=== PATIENT | female | born 1975 | race Hispanic/Latino ===

== ENCOUNTER 2022-01-28 15:04 | Emergency (ER) | payer SELFPAY ==
--- OUTSIDE RECORDS SUMMARY | 2022-01-28 15:15 | XMS REPORT | Continuity of Care Document ---
:1975 Author Organization [facility] t Address [address] [place] [address] Care Team Providers Name Role Phone JEFFERSONANTONELLAOlivia Man Primary Care Physician Unavailable Rolando ZAMUDIO Attending Clinician Unavailable Hammad Willams DO Attending Clinician LEWIS Attending Clinician Unavailable Rolando Zamudio MD Attending Clinician Only, Test Attending Clinician Unavailable Doctor Unassigned, Name Attending Clinician Unavailable Magda ANDRES Attending Clinician Unavailable Lewis SALAMANCA Attending Clinician 2, Lab Attending Clinician Unavailable PARESH Attending Clinician Unavailable Paresh SALAMANCA Attending Clinician Magda Segura Attending Clinician Pc, Echo Room 1 - Attending Clinician Unavailable Piter MAYER Attending Clinician Unavailable KYRIE VASQUEZ Attending Clinician Unavailable Kyrie Vasquez MD Attending Clinician Hellen CORBIN Attending Clinician ANENE Attending Clinician Unavailable AKINMACARIO C Attending Clinician Unavailable Akinsicandice MARCANOP C Attending Clinician Katelynn TREVINO Attending Clinician Unavailable Lab Attending Clinician Unavailable [facility], [facility] Attending Clinician Unavailable Carol Ann Villafuerte Attending Clinician CAROL ANN VILLAFUERTE Attending Clinician Unavailable Belinda NIETOP, N Attending Clinician Rolando ZAMUDIO Admitting Clinician Unavailable Rolando Zamudio MD Admitting Clinician Kyrie Vasquez MD Admitting Clinician KYRIE VASQUEZ Admitting Clinician Unavailable HELLEN Admitting Clinician Unavailable Katelynn TREVINO Admitting Clinician Unavailable Payers Payer Name Policy Type Policy Number Effective Date Expiration Date S nicolette [employer] [place] [id number] 2019 00:00:00 [place] [facility] [id number] 2019 HEALTH 00:00:00 Problems Condition Condition Condition Status Onset Resolution Last Treating Co mments Source Name Details Category Date Date Treatment Clinician Date Preop Preop Disease Active 2020- Overview: Hyun odom examinatio examinatio 03-06 Added it y of n n 00:00: automatic [place] [address] ally from Medical request Branch for surgery [id number] Soft Soft Disease Active 2020- Univers tissue tissue 2-19 ity of mass mass 00:00: [place] [address] Medical Branch Vaginal Vaginal Disease Active 2020-0 Univers yeast yeast 1-27 [place] [facility] Spontaneou Spontaneou Disease Active 2019- U nivers s s 2-18 ity of miscarriag miscarriag [place] Pain Pain Disease Active 2019 Overview: Hyun odom pelvic pelvic 2-18 Possible ity of 00:00: right [place] [address] ovarian Medical cyst on Branch imaging in [place] 04/2019 Urinary Urinary Disease Active 2019- Univers tract tract 8-15 [place] of infection [place] 00 Med[place] sai during during Branch first first trimester trimester of of Anemia of Anemia of Disease Active 2019- Uni vers mother in mother in 8-13 ity of , , [place] antepartum antepartum 00 Az dical Branch Essential Essential Disease Active 2019- Uni vers hypertensi hypertensi 8-12 it y of on on 00:00: [place] [address] Medical Branch High risk High risk Disease Active 2019-0 Uni vers , , 8-12 it y of antepartum antepartum 00:[place] Pregestati Pregestati Disease Active 2019-0 U nivers onal onal 8-12 ity of diabetes diabetes 00:00: [place] mellitus, mellitus, 00 [facility] modified modified Branch White White class B class B Elderly Elderly Disease Active 2019-0 Univers multigravi multigravi 8-12 it y of da in da in 00:00: [place] first first 00 Medical trimester trimester Bran ch BMI BMI Disease Active 2019-0 Univers 26.0-26.9, 26.0-26.9, 8-12 it y of adult adult 00:00: [place] 00 Medical Branch History of History of Disease Active 2019-0 U nivers 8-12 ity of delivery, delivery, 00:00: Jen odom currently currently 00 [facility] Branch Pre-existi Pre-existi Disease Active 2019-0 U nivers ng ng 8-12 ity of essential essential 00:00: Carlmagda odom hypertensi hypertensi 00 Me dical on during on during Bran ch , , antepartum antepartum History of History of Disease Active 2019-0 U nivers depression depression 8-12 it y of 00:00: [place] 00 Medical Branch History of History of Disease Active 2019-0 U nivers cholecyste cholecyste 8-12 it y of ctomy ctomy 00:00: [place] 00 Medical Branch Multiparit Multiparit Disease Active 2019-0 U nivers y y 8-12 ity of 00:00: [place] 00 Medical Branch Tubal Tubal Disease Active 2019-0 Univers ligation ligation 8-12 ity of evaluation evaluation 00:[place]: [place] [facility] [place] Abnormal Abnormal Disease Active 2018- Unive rs uterine uterine 2-14 ity of bleeding bleeding 00:00: [place] 00 Medical Branch Disease Active 2018- Univers control control 2-14 ity of counseling counseling 00[place]00: [place] [facility] [place] Dysmenorrh Dysmenorrh Disease Active 2018- U nivers ea ea 2-05 ity of 00:00: [place] 00 Medical Branch Elevated Elevated Disease Active 2018-0 Unive rs alkaline alkaline 8-29 ity of phosphatas phosphatas 00:00[place] e level 00 Medical Branch 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 03-03 ity of diabetes diabetes 00:00: [place] mellitus mellitus 00 Medica l without without Branch complicati complicati on, with on, with long-term long-term current current use of use of insulin insulin Anemia, Anemia, Disease Active Univers unspecifie unspecifie 03-03 it y of d type d type 00:00: [place] 00 Medical Branch Overweight Overweight Disease Active Overview : Univers 10-10 ICD10 ity of 00:00: Diagnosis [place] 00 Term Medical [place] Branch Utility Allergies, Adverse Reactions, Alerts Allergy Allergy Status Severity Reaction(s) Onset Inactive Treating Comm ents Source Name Type Date Date Clinician CHLORHEX DRUG Active Hives 2019-0 Univers IDINE INGREDI 03-20 ity of 00:00: [place] 00 Medical Branch Chlorhex Propensi Active Hives 2019-0 Univer s idine ty to 15 ity of adverse 00:00: [place] reaction 00 Medical s Branch LABETALO DRUG Active Other-Cmnt 2020-0 Univ ers L INGREDI 4-28 ity of 00:00: [place] 00 Medical Branch LISINOPR DRUG Active COUGH 2020-0 Univers IL INGREDI 4-28 ity of 00:00: [place] 00 Medical Branch Labetalo Propensi Active Other - See 2020-0 fatigue Univers l ty to comments 4-28 ity of adverse 00:00: [place] reaction 00 Medical s Branch Lisinopr Propensi Active Cough 2020-0 Univer s il ty to 4-28 ity of adverse 00:00: [place] reaction 00 Medical s Branch codeine DA Active MS 2020-0 [facility] 4[facility]10 [place] 00:00: d 00 [facility] codeine DA Active MS VOMITING 2019-0 [facility] 4-10 [place] 00:00: d 00 [facility] HYDROCOD DRUG Active N/V Univers ONE-ACET 2-26 ity of AMINOPHE 00:00: [place] N 00 Medical Branch Hydrocod Propensi Active Nausea Univer s one-Acet ty to and/or 2-26 ity of aminophe adverse Vomiting 00:00: [place] n reaction 00 Medical s Branch No Known DA Active U [facility] 4 [place] Intolera 00:00: d nces 00 [facility] No Known DA Active U [facility] Contrast 4-06 [place] Allergie 00:[facility]: d [facility] No Known DA Active U [facility] 4- [place] Allergie 00:[facility]: [facility] No Known DA Active U 2002- [facility] Food 4- [place] Allergie 00:00: d s [facility] No Known DA Active U 2002- [facility] Other 4- [place] Allergie 00:[facility]: [facility] Social History Social Habit Start Date Stop Date Quantity Comments Source ASSERTION 2019-01-21 University 00:00:00 [facility] Exposure to Not sure [facility] SARS-CoV-2 [facility] (event) Branch Alcohol intake 2020-03-29 2020-03-29 Current [facility] 00:00:00 00:00:00 non-drinker of [facility] alcohol [place] (finding) Tobacco use and 2020-03-29 2020-03-29 Never used Universit y of exposure 00:00:00 00:00:00 [facility] Sex Ass[birth year] At [birth year] Universit y of 00:00:00 00:00:00 [facility] Smoking Status Start Date Stop Date Source Never smoker [facility] Medications Ordered Filled Start Stop Current Ordering Indication Dosage Frequency Signature Comments Components Source Medication Medication Date Date Medication? Clinician (SIG) Name Name fluconazole 2019-07 Yes Take 1 Univ ers 150 mg 0-16 tablet by ity of tablet 00:00: mouth now, 00 and 1 Medical tablet in Branch 72 hours. fluconazole 2019-07 Yes Take 1 Univ ers 150 mg 0-16 tablet by ity of tablet 00:00: mouth now, 00 and 1 Medical tablet in Branch 72 hours. sodium 2020-0 Yes PRN, Univers chloride 9-10 Starting ity of 0.9 % 14:24: [place] irrigation 00 03/15/20 at Med ical solution 0924, Branch Until Discontinu ed, Intra-op bupivacaine 2019-0 Yes PRN, Univer s (preserv 9-10 Starting ity of free) 13:32: Kina [place] (SENSORCAIN 03/15/20 at Az dical E MPF) 0.25 0832, Branch % (2.5 Until mg/mL) Discontinu injection ed, Routine, Intra-op morpHINE 2020-0 Yes 2mg 2 mg, Slow Uni vers injection 2 9-10 IV Push, ity of mg 12:32: Q5MIN PRN, [place] 49 5 doses, Medical Starting Branch Kina 03/15/20 at 0732, Until Discontinu ed, Routine, Pain (scale 4-6), PACU lactated 2020-0 2020- No 1000mL at 20 Unive rs ringers IV 9-10 09-10 mL/hr, ity of infusion 12:00: 12:36 1,000 mL, Carl as 1,000 mL 00 :00 IV Medical Infusion, Branch ONCE, 1 dose, Kina 03/15/20 at 0700, Routine, DSU Pre-op ibuprofen 2020-0 Yes [id number] 800mg Take 1 Univers 800 mg 9-10 100 tablet by ity of tablet 00:00: mouth [place] 00 every 8 Medical (eight) Branch hours as needed for Pain (scale 1-3) or Pain (scale 4-6). ibuprofen 2020-0 Yes [id number] 800mg Take 1 Univers 800 mg 9-10 100 tablet by ity of tablet 00:00: mouth [place] 00 every 8 Medical (eight) Branch hours as needed for Pain (scale 1-3) or Pain (scale 4-6). ibuprofen 2020-0 Yes [id number] 800mg Take 1 Univers 800 mg 9-10 100 tablet by ity of tablet 00:00: mouth [place] 00 every 8 Medical (eight) Branch hours as needed for Pain (scale 1-3) or Pain (scale 4-6). ibuprofen 2020-0 Yes [id number] 800mg Take 1 Univers 800 mg 9-10 100 tablet by ity of tablet 00:00: mouth [place] 00 every 8 Medical (eight) Branch hours as needed for Pain (scale 1-3) or Pain (scale 4-6). ibuprofen 2020-0 Yes [id number] 800mg Take 1 Univers 800 mg 9-10 100 tablet by ity of tablet 00:00: mouth [place] 00 every 8 Medical (eight) Branch hours as needed for Pain (scale 1-3) or Pain (scale 4-6). ibuprofen 2020-0 Yes [id number] 800mg Take 1 Univers 800 mg 9-10 100 tablet by ity of tablet 00:00: mouth [place] 00 every 8 Medical (eight) Branch hours as needed for Pain (scale 1-3) or Pain (scale 4-6). ibuprofen 2020-0 Yes [id number] 800mg Take 1 Univers 800 mg 9-10 100 tablet by ity of tablet 00:00: mouth [place] 00 every 8 Medical (eight) Branch hours as needed for Pain (scale 1-3) or Pain (scale 4-6). ibuprofen 2020-0 Yes [id number] 800mg Take 1 Univers 800 mg 9-10 100 tablet by ity of tablet 00:00: mouth [place] 00 every 8 Medical (eight) Branch hours as needed for Pain (scale 1-3) or Pain (scale 4-6). atorvastati 2020-0 Yes [id number] 20mg Take 1 Univers n 20 mg 8-18 tablet by ity of tablet 00:00: mouth at [place] [address] bedtime. Medical Branch atorvastati 2020-0 Yes [id number] 20mg Take 1 Univers n 20 mg 8-18 tablet by ity of tablet 00:00: mouth at [place] [address] bedtime. Medical Branch atorvastati 2020-0 Yes [id number] 20mg Take 1 Univers n 20 mg 8-18 tablet by ity of tablet 00:00: mouth at [place] [address] bedtime. Medical Branch atorvastati 2019-0 Yes [id number] 20mg Take 1 Univers n 20 mg 8-18 tablet by ity of tablet 00:00: mouth at [place] [address] bedtime. Medical Branch atorvastati 2020-0 Yes [id number] 20mg Take 1 Univers n 20 mg 8-18 tablet by ity of tablet 00:00: mouth at [place] [address] bedtime. Medical Branch atorvastati 2020-0 Yes [id number] 20mg Take 1 Univers n 20 mg 8-18 tablet by ity of tablet 00:00: mouth at [place] [address] bedtime. Medical Branch atorvastati 2020-0 Yes [id number] 20mg Take 1 Univers n 20 mg 8-18 tablet by ity of tablet 00:00: mouth at [place] [address] bedtime. Medical Branch atorvastati 2020-0 Yes [id number] 20mg Take 1 Univers n 20 mg 8-18 tablet by ity of tablet 00:00: mouth at [place] [address] bedtime. Medical Branch atorvastati 2020-0 Yes [id number] 20mg Take 1 Univers n 20 mg 8-18 tablet by ity of tablet 00:00: mouth at [place] [address] bedtime. Medical Branch atorvastati 2020-0 Yes [id number] 20mg Take 1 Univers n 20 mg 8-18 tablet by ity of tablet 00:00: mouth at [place] 00 bedtime. Medical Branch atorvastati 2020-0 Yes [id number] 20mg Take 1 Univers n 20 mg 8-18 tablet by ity of tablet 00:00: mouth at [place] bedtime. Medical Branch atorvastati 2020-0 Yes [id number] 20mg Take 1 Univers n 20 mg 8-18 tablet by ity of tablet 00:00: mouth at [place] bedtime. Medical Branch atorvastati 2020-0 Yes [id number] 20mg Take 1 Univers n 20 mg 8-18 tablet by ity of tablet 00:00: mouth at [place] [address] bedtime. Medical Branch atorvastati 2020-0 Yes [id number] 20mg Take 1 Univers n 20 mg 8-18 tablet by ity of tablet 00:00: mouth at [place] bedtime. Medical Branch atorvastati 2020-0 Yes [id number] 20mg Take 1 Univers n 20 mg 8-18 tablet by ity of tablet 00:00: mouth at [place] [address] bedtime. Medical Branch atorvastati 2020-0 Yes [id number] 20mg Take 1 Univers n 20 mg 8-18 tablet by ity of tablet 00:00: mouth at [place] [address] bedtime. Medical Branch atorvastati 2020-0 Yes [id number] 20mg Take 1 Univers n 20 mg 8-18 tablet by ity of tablet 00:00: mouth at [place] [address] bedtime. Medical Branch fluconazole 2020-0 Yes Take Univer s 150 mg 8-12 Diflucan ity of tablet 00:00: after you 00 finish Medical Metronidaz Branch ole 7 day course of treatment. fluconazole 2020-0 Yes Take Univer s 150 mg 8-12 Diflucan ity of tablet 00:00: after you 00 finish Medical Metronidaz Branch ole 7 day course of treatment. fluconazole 2020-0 Yes Take Univer s 150 mg 8-12 Diflucan ity of tablet 00:00: after you 00 finish Medical Metronidaz Branch ole 7 day course of treatment. fluconazole 2020-0 Yes Take Univer s 150 mg 8-12 Diflucan ity of tablet 00:00: after you 00 finish Medical Metronidaz Branch ole 7 day course of treatment. fluconazole 2020-0 Yes Take Univer s 150 mg 8-12 Diflucan ity of tablet 00:00: after you [place] 00 finish Medical Metronidaz Branch ole 7 day course of treatment. fluconazole 2020-0 Yes Take Univer s 150 mg 8-12 Diflucan ity of tablet 00:00: after you [place] 00 finish Medical Metronidaz Branch ole 7 day course of treatment. fluconazole 2020-0 2020- No Take Unive rs 150 mg 8-12 08-25 Diflucan ity of tablet 00:00: 00:00 after you [place] 00 :00 finish Medical Metronidaz Branch ole 7 day course of treatment. metroNIDAZO 2020-0 2020- No 500mg Take 1 Un vinod LE (FLAGYL) 8-12 08-20 tablet by it y of 500 mg 00:00: 04:59 mouth 2 [place] tablet 00 :00 (two) Medical times Branch daily for 7 days. metroNIDAZO 2020-0 2020- No 500mg Take 1 Un vinod LE (FLAGYL) 8-12 08-20 tablet by it y of 500 mg 00:00: 04:59 mouth 2 [place] tablet 00 :00 (two) Medical times Branch daily for 7 days. metroNIDAZO 2020-0 2020- No 500mg Take 1 Un vinod LE (FLAGYL) 8-12 08-20 tablet by it y of 500 mg 00:00: 04:59 mouth 2 [place] tablet 00 :00 (two) Medical times Branch daily for 7 days. metroNIDAZO 2020-0 2020- No 500mg Take 1 Un vinod LE (FLAGYL) 8-12 08-20 tablet by it y of 500 mg 00:00: 04:59 mouth 2 [place] tablet 00 :00 (two) Medical times Branch daily for 7 days. metroNIDAZO 2020-0 2020- No 500mg Take 1 Un vinod LE (FLAGYL) 8-12 08-20 tablet by it y of 500 mg 00:00: 04:59 mouth 2 [place] tablet 00 :00 (two) Medical times Branch daily for 7 days. medroxyPROG 2020-0 Yes [id number] 10mg Take 1 Univers ESTERone 8-11 100 tablet by ity of (PROVERA) 00:00: mouth [place] 10 mg 00 daily. Medical tablet Branch medroxyPROG 2020-0 Yes [id number] 10mg Take 1 Univers ESTERone 8-11 100 tablet by ity of (PROVERA) 00:00: mouth [place] 10 mg 00 daily. Medical tablet Branch medroxyPROG 2020-0 Yes [id number] 10mg Take 1 Univers ESTERone 8-11 100 tablet by ity of (PROVERA) 00:00: mouth [place] 10 mg 00 daily. Medical tablet Branch medroxyPROG 2020-0 Yes [id number] 10mg Take 1 Univers ESTERone 8-11 100 tablet by ity of (PROVERA) 00:00: mouth [place] 10 mg 00 daily. Medical tablet Branch medroxyPROG 2020-0 Yes [id number] 10mg Take 1 Univers ESTERone 8-11 100 tablet by ity of (PROVERA) 00:00: mouth [place] 10 mg 00 daily. Medical tablet Branch medroxyPROG 2020-0 Yes [id number] 10mg Take 1 Univers ESTERone 8-11 100 tablet by ity of (PROVERA) 00:00: mouth [place] 10 mg 00 daily. Medical tablet Branch medroxyPROG 2020-0 Yes [id number] 10mg Take 1 Univers ESTERone 8-11 100 tablet by ity of (PROVERA) 00:00: mouth [place] 10 mg 00 daily. Medical tablet Branch medroxyPROG 2020-0 Yes [id number] 10mg Take 1 Univers ESTERone 8-11 100 tablet by ity of (PROVERA) 00:00: mouth [place] 10 mg 00 daily. Medical tablet Branch medroxyPROG 2020-0 Yes [id number] 10mg Take 1 Univers ESTERone 8-11 100 tablet by ity of (PROVERA) 00:00: mouth [place] 10 mg 00 daily. Medical tablet Branch medroxyPROG 2020-0 Yes [id number] 10mg Take 1 Univers ESTERone 8-11 100 tablet by ity of (PROVERA) 00:00: mouth [place] 10 mg 00 daily. Medical tablet Branch medroxyPROG 2020-0 Yes [id number] 10mg Take 1 Univers ESTERone 8-11 100 tablet by ity of (PROVERA) 00:00: mouth [place] 10 mg 00 daily. Medical tablet Branch medroxyPROG 2020-0 Yes [id number] 10mg Take 1 Univers ESTERone 8-11 100 tablet by ity of (PROVERA) 00:00: mouth [place] 10 mg 00 daily. Medical tablet Branch medroxyPROG 2020-0 Yes [id number] 10mg Take 1 Univers ESTERone 8-11 100 tablet by ity of (PROVERA) 00:00: mouth [place] 10 mg 00 daily. Medical tablet Branch medroxyPROG 2020-0 Yes [id number] 10mg Take 1 Univers ESTERone 8-11 100 tablet by ity of (PROVERA) 00:00: mouth [place] 10 mg 00 daily. Medical tablet Branch medroxyPROG 2020-0 Yes [id number] 10mg Take 1 Univers ESTERone 8-11 100 tablet by ity of (PROVERA) 00:00: mouth [place] 10 mg 00 daily. Medical tablet Branch medroxyPROG 2020-0 Yes [id number] 10mg Take 1 Univers ESTERone 8-11 100 tablet by ity of (PROVERA) 00:00: mouth [place] 10 mg 00 daily. Medical tablet Branch medroxyPROG 2020-0 Yes [id number] 10mg Take 1 Univers ESTERone 8-11 100 tablet by ity of (PROVERA) 00:00: mouth [place] 10 mg 00 daily. Medical tablet Branch medroxyPROG 2020-0 Yes [id number] 10mg Take 1 Univers ESTERone 8-11 100 tablet by ity of (PROVERA) 00:00: mouth [place] 10 mg 00 daily. Medical tablet Branch medroxyPROG 2020-0 2020- No [id number] 10mg Take 1 Univers ESTERone 8-11 09-24 100 tablet by ity o f (PROVERA) 00:00: 00:00 mouth [place] 10 mg 00 :00 daily. Medical tablet Branch medroxyPROG 2020-0 2020- No [id number] 10mg Take 1 Univers ESTERone 8-11 09-24 100 tablet by ity o f (PROVERA) 00:00: 00:00 mouth [place] 10 mg 00 :00 daily. Medical tablet Branch losartan 2020-0 Yes [id number] 100mg Take 1 Un vinod 100 mg 7-27 tablet by ity of tablet 00:00: mouth at [place] 00 bedtime. Medical Branch amLODIPine 2020-0 Yes [id number] 10mg Take 1 U nivers 10 mg 7-27 tablet by ity of tablet 00:00: mouth [place] 00 daily. Medical Branch losartan 2020-0 Yes [id number] 100mg Take 1 Un vinod 100 mg 7-27 tablet by ity of tablet 00:00: mouth at [place] 00 bedtime. Medical Branch amLODIPine 2020-0 Yes [id number] 10mg Take 1 U nivers 10 mg 7-27 tablet by ity of tablet 00:00: mouth 00 daily. Medical Branch losartan 2020-0 Yes [id number] 100mg Take 1 Un vinod 100 mg 7-27 tablet by ity of tablet 00:00: mouth at [place] bedtime. Medical Branch amLODIPine 2020-0 Yes [id number] 10mg Take 1 U nivers 10 mg 7-27 tablet by ity of tablet 00:00: mouth daily. Medical Branch losartan 2020-0 Yes [id number] 100mg Take 1 Un vinod 100 mg 7-27 tablet by ity of tablet 00:00: mouth at [place] bedtime. Medical Branch amLODIPine 2020-0 Yes [id number] 10mg Take 1 U nivers 10 mg 7-27 tablet by ity of tablet 00:00: mouth daily. Medical Branch losartan 2020-0 Yes [id number] 100mg Take 1 Un vinod 100 mg 7-27 tablet by ity of tablet 00:00: mouth at [place] bedtime. Medical Branch amLODIPine 2020-0 Yes [id number] 10mg Take 1 U nivers 10 mg 7-27 tablet by ity of tablet 00:00: mouth daily. Medical Branch losartan 2020-0 Yes [id number] 100mg Take 1 Un vinod 100 mg 7-27 tablet by ity of tablet 00:00: mouth at [place] bedtime. Medical Branch amLODIPine 2020-0 Yes [id number] 10mg Take 1 U nivers 10 mg 7-27 tablet by ity of tablet 00:00: mouth daily. Medical Branch losartan 2020-0 Yes [id number] 100mg Take 1 Un vinod 100 mg 7-27 tablet by ity of tablet 00:00: mouth at [place] bedtime. Medical Branch amLODIPine 2020-0 Yes [id number] 10mg Take 1 U nivers 10 mg 7-27 tablet by ity of tablet 00:00: mouth daily. Medical Branch losartan 2020-0 Yes [id number] 100mg Take 1 Un vinod 100 mg 7-27 tablet by ity of tablet 00:00: mouth at [place] bedtime. Medical Branch amLODIPine 2020-0 Yes [id number] 10mg Take 1 U nivers 10 mg 7-27 tablet by ity of tablet 00:00: mouth 00 daily. Medical Branch losartan 2020-0 Yes [id number] 100mg Take 1 Un vinod 100 mg 7-27 tablet by ity of tablet 00:00: mouth at [place] bedtime. Medical Branch amLODIPine 2020-0 Yes [id number] 10mg Take 1 U nivers 10 mg 7-27 tablet by ity of tablet 00:00: mouth daily. Medical Branch losartan 2020-0 Yes [id number] 100mg Take 1 Un vinod 100 mg 7-27 tablet by ity of tablet 00:00: mouth at [place] bedtime. Medical Branch amLODIPine 2020-0 Yes [id number] 10mg Take 1 U nivers 10 mg 7-27 tablet by ity of tablet 00:00: mouth daily. Medical Branch losartan 2020-0 Yes [id number] 100mg Take 1 Un vinod 100 mg 7-27 tablet by ity of tablet 00:00: mouth at [place] bedtime. Medical Branch amLODIPine 2020-0 Yes [id number] 10mg Take 1 U nivers 10 mg 7-27 tablet by ity of tablet 00:00: mouth daily. Medical Branch losartan 2020-0 Yes [id number] 100mg Take 1 Un vinod 100 mg 7-27 tablet by ity of tablet 00:00: mouth at [place] bedtime. Medical Branch amLODIPine 2020-0 Yes [id number] 10mg Take 1 U nivers 10 mg 7-27 tablet by ity of tablet 00:00: mouth daily. Medical Branch losartan 2020-0 Yes [id number] 100mg Take 1 Un vinod 100 mg 7-27 tablet by ity of tablet 00:00: mouth at [place] bedtime. Medical Branch amLODIPine 2020-0 Yes [id number] 10mg Take 1 U nivers 10 mg 7-27 tablet by ity of tablet 00:00: mouth daily. Medical Branch losartan 2020-0 Yes [id number] 100mg Take 1 Un vinod 100 mg 7-27 tablet by ity of tablet 00:00: mouth at [place] bedtime. Medical Branch amLODIPine 2020-0 Yes [id number] 10mg Take 1 U nivers 10 mg 7-27 tablet by ity of tablet 00:00: mouth daily. Medical Branch losartan 2020-0 Yes [id number] 100mg Take 1 Un vinod 100 mg 7-27 tablet by ity of tablet 00:00: mouth at [place] bedtime. Medical Branch amLODIPine 2020-0 Yes [id number] 10mg Take 1 U nivers 10 mg 7-27 tablet by ity of tablet 00:00: mouth 00 daily. Medical Branch losartan 2020-0 Yes [id number] 100mg Take 1 Un vinod 100 mg 7-27 tablet by ity of tablet 00:00: mouth at [place] bedtime. Medical Branch amLODIPine 2020-0 Yes [id number] 10mg Take 1 U nivers 10 mg 7-27 tablet by ity of tablet 00:00: mouth daily. Medical Branch losartan 2020-0 Yes [id number] 100mg Take 1 Un vinod 100 mg 7-27 tablet by ity of tablet 00:00: mouth at [place] bedtime. Medical Branch amLODIPine 2020-0 Yes [id number] 10mg Take 1 U nivers 10 mg 7-27 tablet by ity of tablet 00:00: mouth daily. Medical Branch losartan 2020-0 Yes [id number] 100mg Take 1 Un vinod 100 mg 7-27 tablet by ity of tablet 00:00: mouth at [place] bedtime. Medical Branch amLODIPine 2020-0 Yes [id number] 10mg Take 1 U nivers 10 mg 7-27 tablet by ity of tablet 00:00: mouth daily. Medical Branch losartan 2020-0 Yes [id number] 100mg Take 1 Un vinod 100 mg 7-27 tablet by ity of tablet 00:00: mouth at [place] bedtime. Medical Branch amLODIPine 2020-0 Yes [id number] 10mg Take 1 U nivers 10 mg 7-27 tablet by ity of tablet 00:00: mouth daily. Medical Branch losartan 2020-0 Yes [id number] 100mg Take 1 Un vinod 100 mg 7-27 tablet by ity of tablet 00:00: mouth at [place] bedtime. Medical Branch amLODIPine 2020-0 Yes [id number] 10mg Take 1 U nivers 10 mg 7-27 tablet by ity of tablet 00:00: mouth daily. Medical Branch losartan 2020-0 Yes [id number] 100mg Take 1 Un vinod 100 mg 7-27 tablet by ity of tablet 00:00: mouth at [place] bedtime. [facility] amLODIPine 2020-0 Yes [id number] 10mg Take 1 [facility] nivers 10 mg 7-27 tablet by [facility] of tablet 00:00: mouth 00 daily. [facility] losartan 2020-0 Yes [id number] 100mg Take 1 [facility] 100 mg 7-27 tablet by [facility] of tablet 00:00: mouth at [place] bedtime. [facility] amLODIPine 2020-0 Yes [id number] 10mg Take 1 [facility] nivers 10 mg 7-27 tablet by [facility] of tablet 00:00: mouth daily. [facility] losartan 2020-0 Yes [id number] 100mg Take 1 [facility] 100 mg 7-27 tablet by [facility]y of tablet 00:00: mouth at [place] bedtime. [facility] amLODIPine 2020-0 Yes [id number] 10mg Take 1 [facility] n[facility] 10 mg 7-27 tablet by [facility] of tablet 00:00: mouth daily. [facility] losartan 2020-0 Yes [id number] 100mg Take 1 [facility] 100 mg 7-27 tablet by [facility] of tablet 00:00: mouth at [place] bedtime. [facility] amLODIPine 2020-0 Yes [id number] 10mg Take 1 [facility] nivers 10 mg 7-27 tablet by [facility] of tablet 00:00: mouth daily. [facility] losartan 2020-0 Yes [id number] 100mg Take 1 [facility] 100 mg 7-27 tablet by [facility]y of tablet 00:00: mouth at [place] bedtime. [facility] amLODIPine 2020-0 Yes [id number] 10mg Take 1 [facility] n[facility] 10 mg 7-27 tablet by [facility] of tablet 00:00: mouth daily. [facility] losartan 2020-0 Yes [id number] 100mg Take 1 [facility] 100 mg 7-27 tablet by [facility] of tablet 00:00: mouth at [place] bedtime. [facility] amLODIPine 2020-0 Yes [id number] 10mg Take 1 [facility] nivers 10 mg 7-27 tablet by [facility] of tablet 00:00: mouth daily. [facility] losartan 2020-0 Yes [id number] 100mg Take 1 [facility] vin[facility] 100 mg 7-27 tablet by [facility]y of tablet 00:00: mouth at [place] bedtime. [facility] amLODIPine 2020-0 Yes [id number] 10mg Take 1 [facility] nivers 10 mg 7-27 tablet by [facility] of tablet 00:00: mouth daily. [facility] losartan 2020-0 Yes [id number] 100mg Take 1 [facility] 100 mg 7-27 tablet by [facility] of tablet 00:00: mouth at [place] bedtime. [facility] amLODIPine 2020-0 Yes [id number] 10mg Take 1 [facility] nivers 10 mg 7-27 tablet by [facility] of tablet 00:00: mouth [place] 00 daily. [facility] losartan 2020-0 Yes [id number] 100mg Take 1 [facility] vin[facility] 100 mg 7-27 tablet by [facility] of tablet 00:00: mouth at [place] 00 bedtime. [facility] amLODIPine 2020-0 Yes [id number] 10mg Take 1 [facility] nivers 10 mg 7-27 tablet by [facility]y of tablet 00:00: mouth [place] 00 daily. [facility] losartan 2020-0 Yes 100mg Take 1 [facility] s 100 mg 6-23 tablet by [facility]y of tablet 00:00: mouth at [place] 00 bedtime. [facility] losartan 2020-0 Yes 100mg Take 1 [facility] s 100 mg 6-23 tablet by [facility] of tablet 00:00: mouth at [place] 00 bedtime. [facility] losartan 2020-0 Yes 100mg Take 1 [facility] s 100 mg 6-23 tablet by [facility] of tablet 00:00: mouth at [place] 00 bedtime. [facility] losartan 2020-0 2020- No 100mg Take 1 Un[facility] rs 100 mg 6-23 07-27 tablet by [facility]y of tablet 00:00: 00:00 mouth at [place] 00 :00 bedtime. [facility] amLODIPine 2020-0 Yes [id number] 10mg Take 1 [facility] nivers 10 mg 4-28 tablet by [facility] of tablet 00:00: mouth [place] 00 daily. [facility] amLODIPine 2020-0 Yes [id number] 10mg Take 1 [facility] nivers 10 mg 4-28 tablet by [facility] of tablet 00:00: mouth [place] 00 daily. [facility] amLODIPine 2020-0 Yes [id number] 10mg Take 1 [facility] nivers 10 mg 4-28 tablet by [facility] of tablet 00:00: mouth [place] 00 daily. [facility] amLODIPine 2020-0 Yes [id number] 10mg Take 1 [facility] nivers 10 mg 4-28 tablet by [facility] of tablet 00:00: mouth [place] 00 daily. [facility] amLODIPine 2020-0 Yes [id number] 10mg Take 1 [facility] nivers 10 mg 4-28 tablet by [facility]y of tablet 00:00: mouth [place] 00 daily. [facility] amLODIPine 2020-0 Yes [id number] 10mg Take 1 [facility] nivers 10 mg 4-28 tablet by [facility] of tablet 00:00: mouth [place] 00 daily. [facility] amLODIPine 2020-0 2020- No [id number] 10mg Take 1 [facility] 10 mg 4-28 07-27 tablet by [facility] of tablet 00:00: 00:00 mouth [place] 00 :00 daily. [facility] Insulin 2020-0 Yes [id number] 45U inject 45 U nivers Glargine 3-24 Units ity of (LANTUS 00:00: under the [place] SOLOSTAR 00 skin every Medic al U-100 morning. Branch INSULIN) 100 unit/mL (3 mL) injection insulin 2020-0 Yes [id number] 15U inject 15 U nivers aspart 3-24 Units ity of U-100 00:00: under the [place] (NOVOLOG 00 skin 3 Medical FLEXPEN (three) Branch U-100 times INSULIN) daily 100 unit/mL before (3 mL) meals. injection metformin 2020-0 Yes [id number] 1000mg Take 2 [facility] ER 500 mg 3-24 tablets by ity of 24 hr 00:00: mouth [place] tablet 00 daily with Medical breakfast. Branch OZEMPIC 2020-0 Yes [id number] .25mg inject Uni vers 0.25 mg or 3-24 0.25-0.5 ity o f 0.5 mg(2 00:00: mg under [place] mg/1.5 mL) 00 the skin Medic al PnIj weekly. Branch Insulin 2020-0 Yes [id number] 45U inject 45 U nivers Glargine 3-24 Units ity of (LANTUS 00:00: under the [place] SOLOSTAR 00 skin every Medic al U-100 morning. Branch INSULIN) 100 unit/mL (3 mL) injection insulin 2020-0 Yes [id number] 15U inject 15 U nivers aspart 3-24 Units ity of U-100 00:00: under the [place] (NOVOLOG 00 skin 3 Medical FLEXPEN (three) Branch U-100 times INSULIN) daily 100 unit/mL before (3 mL) meals. injection metformin 2020-0 Yes [id number] 1000mg Take 2 [facility] ER 500 mg 3-24 tablets by ity of 24 hr 00:00: mouth [place] tablet 00 daily with Medical breakfast. Branch OZEMPIC 2020-0 Yes [id number] .25mg inject Uni vers 0.25 mg or 3-24 0.25-0.5 ity o f 0.5 mg(2 00:00: mg under [place] mg/1.5 mL) 00 the skin Medic al PnIj weekly. Branch Insulin 2020-0 Yes [id number] 45U inject 45 U nivers Glargine 3-24 Units ity of (LANTUS 00:00: under the [place] SOLOSTAR 00 skin every Medic al U-100 morning. Branch INSULIN) 100 unit/mL (3 mL) injection insulin 2020-0 Yes [id number] 15U inject 15 U nivers aspart 3-24 Units ity of U-100 00:00: under the [place] (NOVOLOG 00 skin 3 Medical FLEXPEN (three) Branch U-100 times INSULIN) daily 100 unit/mL before (3 mL) meals. injection metformin 2020-0 Yes [id number] 1000mg Take 2 [facility] ER 500 mg 3-24 tablets by ity of 24 hr 00:00: mouth [place] tablet 00 daily with Medical breakfast. Branch OZEMPIC 2020-0 Yes [id number] .25mg inject Uni vers 0.25 mg or 3-24 0.25-0.5 ity o f 0.5 mg(2 00:00: mg under [place] mg/1.5 mL) 00 the skin Medic al PnIj weekly. Branch Insulin 2020-0 Yes [id number] 45U inject 45 U nivers Glargine 3-24 Units ity of (LANTUS 00:00: under the [place] SOLOSTAR 00 skin every Medic al U-100 morning. Branch INSULIN) 100 unit/mL (3 mL) injection insulin 2020-0 Yes [id number] 15U inject 15 U nivers aspart 3-24 Units ity of U-100 00:00: under the [place] (NOVOLOG 00 skin 3 Medical FLEXPEN (three) Branch U-100 times INSULIN) daily 100 unit/mL before (3 mL) meals. injection metformin 2020-0 Yes [id number] 1000mg Take 2 [facility] ER 500 mg 3-24 tablets by ity of 24 hr 00:00: mouth [place] tablet 00 daily with Medical breakfast. Branch OZEMPIC 2020-0 Yes [id number] .25mg inject Uni vers 0.25 mg or 3-24 0.25-0.5 ity o f 0.5 mg(2 00:00: mg under [place] mg/1.5 mL) 00 the skin Medic al PnIj weekly. Branch Insulin 2020-0 Yes [id number] 45U inject 45 U nivers Glargine 3-24 Units ity of (LANTUS 00:00: under the [place] SOLOSTAR 00 skin every Medic al U-100 morning. Branch INSULIN) 100 unit/mL (3 mL) injection insulin 2020-0 Yes [id number] 15U inject 15 U nivers aspart 3-24 Units ity of U-100 00:00: under the [place] (NOVOLOG 00 skin 3 Medical FLEXPEN (three) Branch U-100 times INSULIN) daily 100 unit/mL before (3 mL) meals. injection metformin 2020-0 Yes [id number] 1000mg Take 2 [facility] ER 500 mg 3-24 tablets by ity of 24 hr 00:00: mouth [place] tablet 00 daily with Medical breakfast. Branch OZEMPIC 2020-0 Yes [id number] .25mg inject Uni vers 0.25 mg or 3-24 0.25-0.5 ity o f 0.5 mg(2 00:00: mg under [place] mg/1.5 mL) 00 the skin Medic al PnIj weekly. Branch Insulin 2020-0 Yes [id number] 45U inject 45 U nivers Glargine 3-24 Units ity of (LANTUS 00:00: under the [place] SOLOSTAR 00 skin every Medic al U-100 morning. Branch INSULIN) 100 unit/mL (3 mL) injection insulin 2020-0 Yes [id number] 15U inject 15 U nivers aspart 3-24 Units ity of U-100 00:00: under the [place] (NOVOLOG 00 skin 3 Medical FLEXPEN (three) Branch U-100 times INSULIN) daily 100 unit/mL before (3 mL) meals. injection metformin 2020-0 Yes [id number] 1000mg Take 2 [facility] ER 500 mg 3-24 tablets by ity of 24 hr 00:00: mouth [place] tablet 00 daily with Medical breakfast. Branch OZEMPIC 2020-0 Yes [id number] .25mg inject Uni vers 0.25 mg or 3-24 0.25-0.5 ity o f 0.5 mg(2 00:00: mg under [place] mg/1.5 mL) 00 the skin Medic al PnIj weekly. Branch Insulin 2020-0 Yes [id number] 45U inject 45 U nivers Glargine 3-24 Units ity of (LANTUS 00:00: under the [place] SOLOSTAR 00 skin every Medic al U-100 morning. Branch INSULIN) 100 unit/mL (3 mL) injection insulin 2020-0 Yes [id number] 15U inject 15 U nivers aspart 3-24 Units ity of U-100 00:00: under the [place] (NOVOLOG 00 skin 3 Medical FLEXPEN (three) Branch U-100 times INSULIN) daily 100 unit/mL before (3 mL) meals. injection metformin 2020-0 Yes [id number] 1000mg Take 2 [facility] ER 500 mg 3-24 tablets by ity of 24 hr 00:00: mouth [place] tablet 00 daily with Medical breakfast. Branch OZEMPIC 2020-0 Yes [id number] .25mg inject Uni vers 0.25 mg or 3-24 0.25-0.5 ity o f 0.5 mg(2 00:00: mg under [place] mg/1.5 mL) 00 the skin Medic al PnIj weekly. Branch Insulin 2020-0 Yes [id number] 45U inject 45 U nivers Glargine 3-24 Units ity of (LANTUS 00:00: under the [place] SOLOSTAR 00 skin every Medic al U-100 morning. Branch INSULIN) 100 unit/mL (3 mL) injection insulin 2020-0 Yes [id number] 15U inject 15 U nivers aspart 3-24 Units ity of U-100 00:00: under the [place] (NOVOLOG 00 skin 3 Medical FLEXPEN (three) Branch U-100 times INSULIN) daily 100 unit/mL before (3 mL) meals. injection metformin 2020-0 Yes [id number] 1000mg Take 2 [facility] ER 500 mg 3-24 tablets by ity of 24 hr 00:00: mouth [place] tablet 00 daily with Medical breakfast. Branch OZEMPIC 2020-0 Yes [id number] .25mg inject Uni vers 0.25 mg or 3-24 0.25-0.5 ity o f 0.5 mg(2 00:00: mg under [place] mg/1.5 mL) 00 the skin Medic al PnIj weekly. Branch Insulin 2020-0 Yes [id number] 45U inject 45 U nivers Glargine 3-24 Units ity of (LANTUS 00:00: under the [place] SOLOSTAR 00 skin every Medic al U-100 morning. Branch INSULIN) 100 unit/mL (3 mL) injection insulin 2020-0 Yes [id number] 15U inject 15 U nivers aspart 3-24 Units ity of U-100 00:00: under the [place] (NOVOLOG 00 skin 3 Medical FLEXPEN (three) Branch U-100 times INSULIN) daily 100 unit/mL before (3 mL) meals. injection metformin 2020-0 Yes [id number] 1000mg Take 2 [facility] ER 500 mg 3-24 tablets by ity of 24 hr 00:00: mouth [place] tablet 00 daily with Medical breakfast. Branch OZEMPIC 2020-0 Yes [id number] .25mg inject Uni vers 0.25 mg or 3-24 0.25-0.5 ity o f 0.5 mg(2 00:00: mg under [place] mg/1.5 mL) 00 the skin Medic al PnIj weekly. Branch Insulin 2020-0 Yes [id number] 45U inject 45 U nivers Glargine 3-24 Units ity of (LANTUS 00:00: under the [place] SOLOSTAR 00 skin every Medic al U-100 morning. Branch INSULIN) 100 unit/mL (3 mL) injection insulin 2020-0 Yes [id number] 15U inject 15 U nivers aspart 3-24 Units ity of U-100 00:00: under the [place] (NOVOLOG 00 skin 3 Medical FLEXPEN (three) Branch U-100 times INSULIN) daily 100 unit/mL before (3 mL) meals. injection metformin 2020-0 Yes [id number] 1000mg Take 2 [facility] ER 500 mg 3-24 tablets by ity of 24 hr 00:00: mouth [place] tablet 00 daily with Medical breakfast. Branch OZEMPIC 2020-0 Yes [id number] .25mg inject Uni vers 0.25 mg or 3-24 0.25-0.5 ity o f 0.5 mg(2 00:00: mg under [place] mg/1.5 mL) 00 the skin Medic al PnIj weekly. Branch Insulin 2020-0 Yes [id number] 45U inject 45 U nivers Glargine 3-24 Units ity of (LANTUS 00:00: under the [place] SOLOSTAR 00 skin every Medic al U-100 morning. Branch INSULIN) 100 unit/mL (3 mL) injection insulin 2020-0 Yes [id number] 15U inject 15 U nivers aspart 3-24 Units ity of U-100 00:00: under the [place] (NOVOLOG 00 skin 3 Medical FLEXPEN (three) Branch U-100 times INSULIN) daily 100 unit/mL before (3 mL) meals. injection metformin 2020-0 Yes [id number] 1000mg Take 2 [facility] ER 500 mg 3-24 tablets by ity of 24 hr 00:00: mouth [place] tablet 00 daily with Medical breakfast. Branch OZEMPIC 2020-0 Yes [id number] .25mg inject Uni vers 0.25 mg or 3-24 0.25-0.5 ity o f 0.5 mg(2 00:00: mg under [place] mg/1.5 mL) 00 the skin Medic al PnIj weekly. Branch Insulin 2020-0 Yes [id number] 45U inject 45 U nivers Glargine 3-24 Units ity of (LANTUS 00:00: under the [place] SOLOSTAR 00 skin every Medic al U-100 morning. Branch INSULIN) 100 unit/mL (3 mL) injection insulin 2020-0 Yes [id number] 15U inject 15 U nivers aspart 3-24 Units ity of U-100 00:00: under the [place] (NOVOLOG 00 skin 3 Medical FLEXPEN (three) Branch U-100 times INSULIN) daily 100 unit/mL before (3 mL) meals. injection metformin 2020-0 Yes [id number] 1000mg Take 2 [facility] ER 500 mg 3-24 tablets by ity of 24 hr 00:00: mouth [place] tablet 00 daily with Medical breakfast. Branch OZEMPIC 2020-0 Yes [id number] .25mg inject Uni vers 0.25 mg or 3-24 0.25-0.5 ity o f 0.5 mg(2 00:00: mg under [place] mg/1.5 mL) 00 the skin Medic al PnIj weekly. Branch Insulin 2020-0 Yes [id number] 45U inject 45 U nivers Glargine 3-24 Units ity of (LANTUS 00:00: under the [place] SOLOSTAR 00 skin every Medic al U-100 morning. Branch INSULIN) 100 unit/mL (3 mL) injection insulin 2020-0 Yes [id number] 15U inject 15 U nivers aspart 3-24 Units ity of U-100 00:00: under the [place] (NOVOLOG 00 skin 3 Medical FLEXPEN (three) Branch U-100 times INSULIN) daily 100 unit/mL before (3 mL) meals. injection metformin 2020-0 Yes [id number] 1000mg Take 2 [facility] ER 500 mg 3-24 tablets by ity of 24 hr 00:00: mouth [place] tablet 00 daily with Medical breakfast. Branch OZEMPIC 2020-0 Yes [id number] .25mg inject Uni vers 0.25 mg or 3-24 0.25-0.5 ity o f 0.5 mg(2 00:00: mg under [place] mg/1.5 mL) 00 the skin Medic al PnIj weekly. Branch Insulin 2020-0 Yes [id number] 45U inject 45 U nivers Glargine 3-24 Units ity of (LANTUS 00:00: under the [place] SOLOSTAR 00 skin every Medic al U-100 morning. Branch INSULIN) 100 unit/mL (3 mL) injection insulin 2020-0 Yes [id number] 15U inject 15 U nivers aspart 3-24 Units ity of U-100 00:00: under the [place] (NOVOLOG 00 skin 3 Medical FLEXPEN (three) Branch U-100 times INSULIN) daily 100 unit/mL before (3 mL) meals. injection metformin 2020-0 Yes [id number] 1000mg Take 2 [facility] ER 500 mg 3-24 tablets by ity of 24 hr 00:00: mouth [place] tablet 00 daily with Medical breakfast. Branch OZEMPIC 2020-0 Yes [id number] .25mg inject Uni vers 0.25 mg or 3-24 0.25-0.5 ity o f 0.5 mg(2 00:00: mg under [place] mg/1.5 mL) 00 the skin Medic al PnIj weekly. Branch Insulin 2020-0 Yes [id number] 45U inject 45 U nivers Glargine 3-24 Units ity of (LANTUS 00:00: under the [place] SOLOSTAR 00 skin every Medic al U-100 morning. Branch INSULIN) 100 unit/mL (3 mL) injection insulin 2020-0 Yes [id number] 15U inject 15 U nivers aspart 3-24 Units ity of U-100 00:00: under the [place] (NOVOLOG 00 skin 3 Medical FLEXPEN (three) Branch U-100 times INSULIN) daily 100 unit/mL before (3 mL) meals. injection metformin 2020-0 Yes [id number] 1000mg Take 2 [facility] ER 500 mg 3-24 tablets by ity of 24 hr 00:00: mouth [place] tablet 00 daily with Medical breakfast. Branch OZEMPIC 2020-0 Yes [id number] .25mg inject Uni vers 0.25 mg or 3-24 0.25-0.5 ity o f 0.5 mg(2 00:00: mg under [place] mg/1.5 mL) 00 the skin Medic al PnIj weekly. Branch Insulin 2020-0 Yes [id number] 45U inject 45 U nivers Glargine 3-24 Units ity of (LANTUS 00:00: under the [place] SOLOSTAR 00 skin every Medic al U-100 morning. Branch INSULIN) 100 unit/mL (3 mL) injection insulin 2020-0 Yes [id number] 15U inject 15 U nivers aspart 3-24 Units ity of U-100 00:00: under the [place] (NOVOLOG 00 skin 3 Medical FLEXPEN (three) Branch U-100 times INSULIN) daily 100 unit/mL before (3 mL) meals. injection metformin 2020-0 Yes [id number] 1000mg Take 2 [facility] ER 500 mg 3-24 tablets by ity of 24 hr 00:00: mouth [place] tablet 00 daily with Medical breakfast. Branch OZEMPIC 2020-0 Yes [id number] .25mg inject [facility] vers 0.25 mg or 3-24 0.25-0.5 ity o f 0.5 mg(2 00:00: mg under [place] mg/1.5 mL) 00 the skin Medic al PnIj weekly. Branch Insulin 2020-0 Yes [id number] 45U inject 45 U nivers Glargine 3-24 Units ity of (LANTUS 00:00: under the [place] SOLOSTAR 00 skin every Medic al U-100 morning. Branch INSULIN) 100 unit/mL (3 mL) injection insulin 2020-0 Yes [id number] 15U inject 15 U nivers aspart 3-24 Units ity of U-100 00:00: under the [place] (NOVOLOG 00 skin 3 Medical FLEXPEN (three) Branch U-100 times INSULIN) daily 100 unit/mL before (3 mL) meals. injection metformin 2020-0 Yes [id number] 1000mg Take 2 [facility] ER 500 mg 3-24 tablets by ity of 24 hr 00:00: mouth [place] tablet 00 daily with Medical breakfast. Branch OZEMPIC 2020-0 Yes [id number] .25mg inject [facility] vers 0.25 mg or 3-24 0.25-0.5 ity o f 0.5 mg(2 00:00: mg under [place] mg/1.5 mL) 00 the skin Medic al PnIj weekly. Branch Insulin 2020-0 Yes [id number] 45U inject 45 U nivers Glargine 3-24 Units ity of (LANTUS 00:00: under the [place] SOLOSTAR 00 skin every Medic al U-100 morning. Branch INSULIN) 100 unit/mL (3 mL) injection insulin 2020-0 Yes [id number] 15U inject 15 U nivers aspart 3-24 Units ity of U-100 00:00: under the [place] (NOVOLOG 00 skin 3 Medical FLEXPEN (three) Branch U-100 times INSULIN) daily 100 unit/mL before (3 mL) meals. injection metformin 2020-0 Yes [id number] 1000mg Take 2 [facility] ER 500 mg 3-24 tablets by ity of 24 hr 00:00: mouth [place] tablet 00 daily with Medical breakfast. Branch OZEMPIC 2020-0 Yes [id number] .25mg inject Uni vers 0.25 mg or 3-24 0.25-0.5 ity o f 0.5 mg(2 00:00: mg under [place] mg/1.5 mL) 00 the skin Medic al PnIj weekly. Branch Insulin 2020-0 Yes [id number] 45U inject 45 U nivers Glargine 3-24 Units ity of (LANTUS 00:00: under the [place] SOLOSTAR 00 skin every Medic al U-100 morning. Branch INSULIN) 100 unit/mL (3 mL) injection insulin 2020-0 Yes [id number] 15U inject 15 U nivers aspart 3-24 Units ity of U-100 00:00: under the [place] (NOVOLOG 00 skin 3 Medical FLEXPEN (three) Branch U-100 times INSULIN) daily 100 unit/mL before (3 mL) meals. injection metformin 2020-0 Yes [id number] 1000mg Take 2 [facility] ER 500 mg 3-24 tablets by ity of 24 hr 00:00: mouth [place] tablet 00 daily with Medical breakfast. Branch OZEMPIC 2020-0 Yes [id number] .25mg inject Uni vers 0.25 mg or 3-24 0.25-0.5 ity o f 0.5 mg(2 00:00: mg under [place] mg/1.5 mL) 00 the skin Medic al PnIj weekly. Branch Insulin 2020-0 Yes [id number] 45U inject 45 U nivers Glargine 3-24 Units ity of (LANTUS 00:00: under the [place] SOLOSTAR 00 skin every Medic al U-100 morning. Branch INSULIN) 100 unit/mL (3 mL) injection insulin 2020-0 Yes [id number] 15U inject 15 U nivers aspart 3-24 Units ity of U-100 00:00: under the [place] (NOVOLOG 00 skin 3 Medical FLEXPEN (three) Branch U-100 times INSULIN) daily 100 unit/mL before (3 mL) meals. injection metformin 2020-0 Yes [id number] 1000mg Take 2 [facility] ER 500 mg 3-24 tablets by ity of 24 hr 00:00: mouth [place] tablet 00 daily with Medical breakfast. Branch OZEMPIC 2020-0 Yes [id number] .25mg inject [facility] vers 0.25 mg or 3-24 0.25-0.5 ity o f 0.5 mg(2 00:00: mg under [place] mg/1.5 mL) 00 the skin Medic al PnIj weekly. Branch Insulin 2020-0 Yes [id number] 45U inject 45 U nivers Glargine 3-24 Units ity of (LANTUS 00:00: under the [place] SOLOSTAR 00 skin every Medic al U-100 morning. Branch INSULIN) 100 unit/mL (3 mL) injection insulin 2020-0 Yes [id number] 15U inject 15 U nivers aspart 3-24 Units ity of U-100 00:00: under the [place] (NOVOLOG 00 skin 3 Medical FLEXPEN (three) Branch U-100 times INSULIN) daily 100 unit/mL before (3 mL) meals. injection metformin 2020-0 Yes [id number] 1000mg Take 2 [facility] ER 500 mg 3-24 tablets by ity of 24 hr 00:00: mouth [place] tablet 00 daily with Medical breakfast. Branch OZEMPIC 2020-0 Yes [id number] .25mg inject [facility] vers 0.25 mg or 3-24 0.25-0.5 ity o f 0.5 mg(2 00:00: mg under [place] mg/1.5 mL) 00 the skin Medic al PnIj weekly. Branch Insulin 2020-0 Yes [id number] 45U inject 45 U nivers Glargine 3-24 Units ity of (LANTUS 00:00: under the [place] SOLOSTAR 00 skin every Medic al U-100 morning. Branch INSULIN) 100 unit/mL (3 mL) injection insulin 2020-0 Yes [id number] 15U inject 15 U nivers aspart 3-24 Units ity of U-100 00:00: under the [place] (NOVOLOG 00 skin 3 Medical FLEXPEN (three) Branch U-100 times INSULIN) daily 100 unit/mL before (3 mL) meals. injection metformin 2020-0 Yes [id number] 1000mg Take 2 [facility] ER 500 mg 3-24 tablets by ity of 24 hr 00:00: mouth [place] tablet 00 daily with Medical breakfast. Branch OZEMPIC 2020-0 Yes [id number] .25mg inject [facility] vers 0.25 mg or 3-24 0.25-0.5 ity o f 0.5 mg(2 00:00: mg under [place] mg/1.5 mL) 00 the skin Medic al PnIj weekly. Branch Insulin 2020-0 Yes [id number] 45U inject 45 U nivers Glargine 3-24 Units ity of (LANTUS 00:00: under the [place] SOLOSTAR 00 skin every Medic al U-100 morning. Branch INSULIN) 100 unit/mL (3 mL) injection insulin 2020-0 Yes [id number] 15U inject 15 U nivers aspart 3-24 Units ity of U-100 00:00: under the [place] (NOVOLOG 00 skin 3 Medical FLEXPEN (three) Branch U-100 times INSULIN) daily 100 unit/mL before (3 mL) meals. injection metformin 2020-0 Yes [id number] 1000mg Take 2 [facility] ER 500 mg 3-24 tablets by ity of 24 hr 00:00: mouth [place] tablet 00 daily with Medical breakfast. Branch OZEMPIC 2020-0 Yes [id number] .25mg inject [facility] vers 0.25 mg or 3-24 0.25-0.5 ity o f 0.5 mg(2 00:00: mg under [place] mg/1.5 mL) 00 the skin Medic al PnIj weekly. Branch Insulin 2020-0 Yes [id number] 45U inject 45 U nivers Glargine 3-24 Units ity of (LANTUS 00:00: under the [place] SOLOSTAR 00 skin every Medic al U-100 morning. Branch INSULIN) 100 unit/mL (3 mL) injection insulin 2020-0 Yes [id number] 15U inject 15 U nivers aspart 3-24 Units ity of U-100 00:00: under the [place] (NOVOLOG 00 skin 3 Medical FLEXPEN (three) Branch U-100 times INSULIN) daily 100 unit/mL before (3 mL) meals. injection metformin 2020-0 Yes [id number] 1000mg Take 2 [facility] ER 500 mg 3-24 tablets by ity of 24 hr 00:00: mouth [place] tablet 00 daily with Medical breakfast. Branch OZEMPIC 2020-0 Yes [id number] .25mg inject [facility] vers 0.25 mg or 3-24 0.25-0.5 ity o f 0.5 mg(2 00:00: mg under [place] mg/1.5 mL) 00 the skin Medic al PnIj weekly. Branch Insulin 2020-0 Yes [id number] 45U inject 45 U nivers Glargine 3-24 Units ity of (LANTUS 00:00: under the [place] SOLOSTAR 00 skin every Medic al U-100 morning. Branch INSULIN) 100 unit/mL (3 mL) injection insulin 2020-0 Yes [id number] 15U inject 15 U nivers aspart 3-24 Units ity of U-100 00:00: under the [place] (NOVOLOG 00 skin 3 Medical FLEXPEN (three) Branch U-100 times INSULIN) daily 100 unit/mL before (3 mL) meals. injection metformin 2020-0 Yes [id number] 1000mg Take 2 [facility] ER 500 mg 3-24 tablets by ity of 24 hr 00:00: mouth [place] tablet 00 daily with Medical breakfast. Branch OZEMPIC 2020-0 Yes [id number] .25mg inject [facility] vers 0.25 mg or 3-24 0.25-0.5 ity o f 0.5 mg(2 00:00: mg under [place] mg/1.5 mL) 00 the skin Medic al PnIj weekly. Branch Insulin 2020-0 Yes [id number] 45U inject 45 U nivers Glargine 3-24 Units ity of (LANTUS 00:00: under the [place] SOLOSTAR 00 skin every Medic al U-100 morning. Branch INSULIN) 100 unit/mL (3 mL) injection insulin 2020-0 Yes [id number] 15U inject 15 U nivers aspart 3-24 Units ity of U-100 00:00: under the [place] (NOVOLOG 00 skin 3 Medical FLEXPEN (three) Branch U-100 times INSULIN) daily 100 unit/mL before (3 mL) meals. injection metformin 2020-0 Yes [id number] 1000mg Take 2 [facility] ER 500 mg 3-24 tablets by ity of 24 hr 00:00: mouth [place] tablet 00 daily with Medical breakfast. Branch OZEMPIC 2020-0 Yes [id number] .25mg inject [facility] vers 0.25 mg or 3-24 0.25-0.5 ity o f 0.5 mg(2 00:00: mg under [place] mg/1.5 mL) 00 the skin Medic al PnIj weekly. Branch Insulin 2020-0 Yes [id number] 45U inject 45 U nivers Glargine 3-24 Units ity of (LANTUS 00:00: under the [place] SOLOSTAR 00 skin every Medic al U-100 morning. Branch INSULIN) 100 unit/mL (3 mL) injection insulin 2020-0 Yes [id number] 15U inject 15 U nivers aspart 3-24 Units ity of U-100 00:00: under the [place] (NOVOLOG 00 skin 3 Medical FLEXPEN (three) Branch U-100 times INSULIN) daily 100 unit/mL before (3 mL) meals. injection metformin 2020-0 Yes [id number] 1000mg Take 2 [facility] ER 500 mg 3-24 tablets by ity of 24 hr 00:00: mouth [place] tablet 00 daily with Medical breakfast. Branch OZEMPIC 2020-0 Yes [id number] .25mg inject [facility] vers 0.25 mg or 3-24 0.25-0.5 ity o f 0.5 mg(2 00:00: mg under [place] mg/1.5 mL) 00 the skin Medic al PnIj weekly. Branch Insulin 2020-0 Yes [id number] 45U inject 45 U nivers Glargine 3-24 Units ity of (LANTUS 00:00: under the [place] SOLOSTAR 00 skin every Medic al U-100 morning. Branch INSULIN) 100 unit/mL (3 mL) injection insulin 2020-0 Yes [id number] 15U inject 15 U nivers aspart 3-24 Units ity of U-100 00:00: under the [place] (NOVOLOG 00 skin 3 Medical FLEXPEN (three) Branch U-100 times INSULIN) daily 100 unit/mL before (3 mL) meals. injection metformin 2020-0 Yes [id number] 1000mg Take 2 [facility] ER 500 mg 3-24 tablets by ity of 24 hr 00:00: mouth [place] tablet 00 daily with Medical breakfast. Branch OZEMPIC 2020-0 Yes [id number] .25mg inject Uni vers 0.25 mg or 3-24 0.25-0.5 ity o f 0.5 mg(2 00:00: mg under [place] mg/1.5 mL) 00 the skin Medic al PnIj weekly. Branch Insulin 2020-0 Yes [id number] 45U inject 45 U nivers Glargine 3-24 Units ity of (LANTUS 00:00: under the [place] SOLOSTAR 00 skin every Medic al U-100 morning. Branch INSULIN) 100 unit/mL (3 mL) injection insulin 2020-0 Yes [id number] 15U inject 15 U nivers aspart 3-24 Units ity of U-100 00:00: under the [place] (NOVOLOG 00 skin 3 Medical FLEXPEN (three) Branch U-100 times INSULIN) daily 100 unit/mL before (3 mL) meals. injection metformin 2020-0 Yes [id number] 1000mg Take 2 [facility] ER 500 mg 3-24 tablets by ity of 24 hr 00:00: mouth [place] tablet 00 daily with Medical breakfast. Branch OZEMPIC 2020-0 Yes [id number] .25mg inject Uni vers 0.25 mg or 3-24 0.25-0.5 ity o f 0.5 mg(2 00:00: mg under [place] mg/1.5 mL) 00 the skin Medic al PnIj weekly. Branch Insulin 2020-0 Yes [id number] 45U inject 45 U nivers Glargine 3-24 Units ity of (LANTUS 00:00: under the [place] SOLOSTAR 00 skin every Medic al U-100 morning. Branch INSULIN) 100 unit/mL (3 mL) injection insulin 2020-0 Yes [id number] 15U inject 15 U nivers aspart 3-24 Units ity of U-100 00:00: under the [place] (NOVOLOG 00 skin 3 Medical FLEXPEN (three) Branch U-100 times INSULIN) daily 100 unit/mL before (3 mL) meals. injection metformin 2020-0 Yes [id number] 1000mg Take 2 [facility] ER 500 mg 3-24 tablets by ity of 24 hr 00:00: mouth [place] tablet 00 daily with Medical breakfast. Branch OZEMPIC 2020-0 Yes [id number] .25mg inject Uni vers 0.25 mg or 3-24 0.25-0.5 ity o f 0.5 mg(2 00:00: mg under [place] mg/1.5 mL) 00 the skin Medic al PnIj weekly. Branch Insulin 2020-0 Yes [id number] 45U inject 45 U nivers Glargine 3-24 Units ity of (LANTUS 00:00: under the [place] SOLOSTAR 00 skin every Medic al U-100 morning. Branch INSULIN) 100 unit/mL (3 mL) injection insulin 2020-0 Yes [id number] 15U inject 15 U nivers aspart 3-24 Units ity of U-100 00:00: under the [place] (NOVOLOG 00 skin 3 Medical FLEXPEN (three) Branch U-100 times INSULIN) daily 100 unit/mL before (3 mL) meals. injection metformin 2020-0 Yes [id number] 1000mg Take 2 [facility] ER 500 mg 3-24 tablets by ity of 24 hr 00:00: mouth [place] tablet 00 daily with Medical breakfast. Branch OZEMPIC 2020-0 Yes [id number] .25mg inject Uni vers 0.25 mg or 3-24 0.25-0.5 ity o f 0.5 mg(2 00:00: mg under [place] mg/1.5 mL) 00 the skin Medic al PnIj weekly. Branch Insulin 2020-0 Yes [id number] 45U inject 45 U nivers Glargine 3-24 Units ity of (LANTUS 00:00: under the [place] SOLOSTAR 00 skin every Medic al U-100 morning. Branch INSULIN) 100 unit/mL (3 mL) injection insulin 2020-0 Yes [id number] 15U inject 15 U nivers aspart 3-24 Units ity of U-100 00:00: under the [place] (NOVOLOG 00 skin 3 Medical FLEXPEN (three) Branch U-100 times INSULIN) daily 100 unit/mL before (3 mL) meals. injection metformin 2020-0 Yes [id number] 1000mg Take 2 [facility] ER 500 mg 3-24 tablets by ity of 24 hr 00:00: mouth [place] tablet 00 daily with Medical breakfast. Branch OZEMPIC 2020-0 Yes [id number] .25mg inject Uni vers 0.25 mg or 3-24 0.25-0.5 ity o f 0.5 mg(2 00:00: mg under [place] mg/1.5 mL) 00 the skin Medic al PnIj weekly. Branch Insulin 2020-0 Yes [id number] 45U inject 45 U nivers Glargine 3-24 Units ity of (LANTUS 00:00: under the [place] SOLOSTAR 00 skin every Medic al U-100 morning. Branch INSULIN) 100 unit/mL (3 mL) injection insulin 2020-0 Yes [id number] 15U inject 15 U nivers aspart 3-24 Units ity of U-100 00:00: under the [place] (NOVOLOG 00 skin 3 Medical FLEXPEN (three) Branch U-100 times INSULIN) daily 100 unit/mL before (3 mL) meals. injection metformin 2020-0 Yes [id number] 1000mg Take 2 [facility] ER 500 mg 3-24 tablets by ity of 24 hr 00:00: mouth [place] tablet 00 daily with Medical breakfast. Branch OZEMPIC 2020-0 Yes [id number] .25mg inject Uni vers 0.25 mg or 3-24 0.25-0.5 ity o f 0.5 mg(2 00:00: mg under [place] mg/1.5 mL) 00 the skin Medic al PnIj weekly. Branch Insulin 2020-0 Yes [id number] 45U inject 45 U nivers Glargine 3-24 Units ity of (LANTUS 00:00: under the [place] SOLOSTAR 00 skin every Medic al U-100 morning. Branch INSULIN) 100 unit/mL (3 mL) injection insulin 2020-0 Yes [id number] 15U inject 15 U nivers aspart 3-24 Units ity of U-100 00:00: under the [place] (NOVOLOG 00 skin 3 Medical FLEXPEN (three) Branch U-100 times INSULIN) daily 100 unit/mL before (3 mL) meals. injection metformin 2020-0 Yes [id number] 1000mg Take 2 [facility] ER 500 mg 3-24 tablets by ity of 24 hr 00:00: mouth [place] tablet 00 daily with Medical breakfast. Branch OZEMPIC 2020-0 Yes [id number] .25mg inject Uni vers 0.25 mg or 3-24 0.25-0.5 ity o f 0.5 mg(2 00:00: mg under [place] mg/1.5 mL) 00 the skin Medic al PnIj weekly. Branch Insulin 2020-0 Yes [id number] 45U inject 45 U nivers Glargine 3-24 Units ity of (LANTUS 00:00: under the [place] SOLOSTAR 00 skin every Medic al U-100 morning. Branch INSULIN) 100 unit/mL (3 mL) injection insulin 2020-0 Yes [id number] 15U inject 15 U nivers aspart 3-24 Units ity of U-100 00:00: under the [place] (NOVOLOG 00 skin 3 Medical FLEXPEN (three) Branch U-100 times INSULIN) daily 100 unit/mL before (3 mL) meals. injection metformin 2020-0 Yes [id number] 1000mg Take 2 [facility] ER 500 mg 3-24 tablets by ity of 24 hr 00:00: mouth [place] tablet 00 daily with Medical breakfast. Branch OZEMPIC 2020-0 Yes [id number] .25mg inject Uni vers 0.25 mg or 3-24 0.25-0.5 ity o f 0.5 mg(2 00:00: mg under [place] mg/1.5 mL) 00 the skin Medic al PnIj weekly. Branch Insulin 2020-0 Yes [id number] 45U inject 45 U nivers Glargine 3-24 Units ity of (LANTUS 00:00: under the [place] SOLOSTAR 00 skin every Medic al U-100 morning. Branch INSULIN) 100 unit/mL (3 mL) injection insulin 2020-0 Yes [id number] 15U inject 15 U nivers aspart 3-24 Units ity of U-100 00:00: under the [place] (NOVOLOG 00 skin 3 Medical FLEXPEN (three) Branch U-100 times INSULIN) daily 100 unit/mL before (3 mL) meals. injection metformin 2020-0 Yes [id number] 1000mg Take 2 [facility] ER 500 mg 3-24 tablets by ity of 24 hr 00:00: mouth [place] tablet 00 daily with Medical breakfast. Branch OZEMPIC 2020-0 Yes [id number] .25mg inject Uni vers 0.25 mg or 3-24 0.25-0.5 ity o f 0.5 mg(2 00:00: mg under [place] mg/1.5 mL) 00 the skin Medic al PnIj weekly. Branch Insulin 2020-0 Yes [id number] 45U inject 45 U nivers Glargine 3-24 Units ity of (LANTUS 00:00: under the [place] SOLOSTAR 00 skin every Medic al U-100 morning. Branch INSULIN) 100 unit/mL (3 mL) injection insulin 2020-0 Yes [id number] 15U inject 15 U nivers aspart 3-24 Units ity of U-100 00:00: under the [place] (NOVOLOG 00 skin 3 Medical FLEXPEN (three) Branch U-100 times INSULIN) daily 100 unit/mL before (3 mL) meals. injection metformin 2020-0 Yes [id number] 1000mg Take 2 [facility] ER 500 mg 3-24 tablets by ity of 24 hr 00:00: mouth [place] tablet 00 daily with Medical breakfast. Branch OZEMPIC 2020-0 Yes [id number] .25mg inject Uni vers 0.25 mg or 3-24 0.25-0.5 ity o f 0.5 mg(2 00:00: mg under [place] mg/1.5 mL) 00 the skin Medic al PnIj weekly. Branch Insulin 2020-0 Yes [id number] 45U inject 45 U nivers Glargine 3-24 Units ity of (LANTUS 00:00: under the [place] SOLOSTAR 00 skin every Medic al U-100 morning. Branch INSULIN) 100 unit/mL (3 mL) injection insulin 2019-0 Yes [id number] 15U inject 15 U nivers aspart 3-24 Units ity of U-100 00:00: under the [place] (NOVOLOG 00 skin 3 Medical FLEXPEN (three) Branch U-100 times INSULIN) daily 100 unit/mL before (3 mL) meals. injection metformin 2020-0 Yes [id number] 1000mg Take 2 [facility] ER 500 mg 3-24 tablets by ity of 24 hr 00:00: mouth [place] tablet 00 daily with Medical breakfast. Branch OZEMPIC 2020-0 Yes [id number] .25mg inject Uni vers 0.25 mg or 3-24 0.25-0.5 ity o f 0.5 mg(2 00:00: mg under [place] mg/1.5 mL) 00 the skin Medic al PnIj weekly. Branch losartan 2020-0 Yes 100mg Take 1 Univer s 100 mg 3-23 tablet by ity of tablet 00:00: mouth at [place] [address] bedtime. Medical Branch losartan 2020-0 Yes 100mg Take 1 Univer s 100 mg 3-23 tablet by ity of tablet 00:00: mouth at [place] [address] bedtime. Medical Branch losartan 2020-0 Yes 100mg Take 1 Univer s 100 mg 3-23 tablet by ity of tablet 00:00: mouth at [place] [address] bedtime. Medical Branch losartan 2020-0 Yes 100mg Take 1 Univer s 100 mg 3-23 tablet by ity of tablet 00:00: mouth at [place] [address] bedtime. Medical Branch losartan 2020-0 Yes 100mg Take 1 Univer s 100 mg 3-23 tablet by ity of tablet 00:00: mouth at [place] 00 bedtime. Medical Branch losartan 2020-0 Yes 100mg Take 1 Univer s 100 mg 3-23 tablet by ity of tablet 00:00: mouth at [place] 00 bedtime. Medical Branch losartan 2020-0 Yes 100mg Take 1 Univer s 100 mg 3-23 tablet by ity of tablet 00:00: mouth at [place] 00 bedtime. Medical Branch losartan 2020-0 2020- No 100mg Take 1 Unive rs 100 mg 3-23 06-23 tablet by ity of tablet 00:00: 00:00 mouth at [place] 00 :00 bedtime. Medical Branch NaCl 0.9% 2020-0 Yes 1000mL at 75 Unive rs (NS) IV 2-26 mL/hr, IV ity of infusion 20:00: [place], [place] 1,000 [place] 00 CONTINUOUS Medic al , Starting Branch Thu08/31/19 at 1400, Until Discontinu ed, Routine, PACU HYDROmorpho 2020-0 Yes .2mg 0.2 mg, Uni vers ne 2-26 Slow IV ity of (DILAUDID) 19:47: Push, [place] injection 14 Q5MIN PRN, Medi sai 0.2 mg 10 doses, Branch Starting Thu08/31/19 at 1347, Until Discontinu ed, Routine, Pain (scale 7-10), PACU
Us e approved by (Faculty): PACU USE -ANESTHESI A SERVICE-HY DROMORPHON E INJECTIONS FENTanyl PF 2020-0 Yes 25ug 25 mcg, Uni vers (SUBLIMAZE 2-26 Slow IV ity of (PF)) 19:47: Push, [place] injection 14 Q5MIN PRN, Medi sai 25 mcg 4 doses, Branch Starting Thu08/31/19 at 1347, Until Discontinu ed, Routine, Pain (scale 4-6), PACU ondansetron 2020-0 Yes 4mg 4 mg, Slow Univers (ZOFRAN 2-26 IV Push, ity of (PF)) 19:47: PRN, 1 [place] injection 4 14 dose, Medical mg Starting Branch Thu08/31/19 at 1347, Until Discontinu ed, Routine, Nausea and Vomiting (N/V), PACU HYDROcodone 2020-0 Yes 1{tbl} 1 tablet, Univers -acetaminop 2-26 Oral, PRN, it y of hen (NORCO 19:47: 1 dose, [place] 5) 5-325 mg 03 Starting [facility] sai tablet 1 Thu Branch tablet 08/31/19 at 1347, Until Discontinu ed, Routine, Pain (scale 1-3), DSU Recovery traMADol 2020-0 Yes 50mg 50 mg, Univers (ULTRAM) 2-26 Oral, PRN, ity o f tablet 50 19:47: 1 dose, [place] mg 03 Starting Medical Wed Branch 08/31/19 at 1347, Until Discontinu ed, Routine, Pain (scale 4-6), DSU Recovery ibuprofen 2020-0 Yes 800mg 800 mg, Univ ers (IBU) 2- Oral, PRN, ity of tablet 800 19:47: 1 dose, [place] mg 03 Starting Medical [facility] Branch 08/31/19 at 1347, Until Discontinu ed, Routine, Pain (scale 1-3), DSU Recovery sodium 2020-0 Yes PRN, Univers chloride - Starting ity of 0.9 % 18:45: Thu [place] irrigation 00 08/31/19 at [facility] ical solution 1245, Branch Until Discontinu ed, Intra-op bupivacaine 2020-0 Yes PRN, Univer s (preserv - Starting ity of free) 18:45: Thu ([place] 00 08/31/19 at [place] [facility]) 0.25 1245, Branch % (2.5 Until mg/mL) Discontinu injection ed, Routine, Intra-op NaCl 0.9% 2020-0 Yes 1000mL at 42 Unive rs (NS) IV 2-26 mL/hr, IV ity of infusion 15:45: Infusion, [place] 1,000 mL 00 CONTINUOUS Medic al , Starting Branch 08/31/19 at 0945, Until Discontinu ed, Routine, DSU Pre-op ibuprofen 2020-0 Yes [id number] 800mg Take 1 Univers 800 mg 2-26 tablet by ity of tablet 00:00: mouth 00 every 6 Medical (six) Branch hours as needed (alternate with tylenol). ondansetron 2020-0 Yes [id number] 4mg Take 1 Univers (ZOFRAN) 4 2-26 tablet by ity of mg tablet 00:00: mouth [place] 00 every 8 Medical (eight) Branch hours as needed for Nausea and Vomiting (N/V). ibuprofen 2020-0 Yes [id number] 800mg Take 1 Univers 800 mg 2-26 tablet by ity of tablet 00:00: mouth [place] 00 every 6 Medical (six) Branch hours as needed (alternate with tylenol). ondansetron 2020-0 Yes [id number] 4mg Take 1 Univers (ZOFRAN) 4 2-26 tablet by ity of mg tablet 00:00: mouth [place] 00 every 8 Medical (eight) Branch hours as needed for Nausea and Vomiting (N/V). ibuprofen 2020-0 Yes [id number] 800mg Take 1 Univers 800 mg 2-26 tablet by ity of tablet 00:00: mouth [place] 00 every 6 Medical (six) Branch hours as needed (alternate with tylenol). ondansetron 2020-0 Yes [id number] 4mg Take 1 Univers (ZOFRAN) 4 2-26 tablet by ity of mg tablet 00:00: mouth [place] 00 every 8 Medical (eight) Branch hours as needed for Nausea and Vomiting (N/V). ibuprofen 2020-0 Yes [id number] 800mg Take 1 Univers 800 mg 2-26 tablet by ity of tablet 00:00: mouth [place] 00 every 6 Medical (six) Branch hours as needed (alternate with tylenol). ondansetron 2020-0 Yes [id number] 4mg Take 1 Univers (ZOFRAN) 4 2-26 tablet by ity of mg tablet 00:00: mouth [place] 00 every 8 Medical (eight) Branch hours as needed for Nausea and Vomiting (N/V). ibuprofen 2020-0 Yes [id number] 800mg Take 1 Univers 800 mg 2-26 tablet by ity of tablet 00:00: mouth [place] 00 every 6 Medical (six) Branch hours as needed (alternate with tylenol). ondansetron 2020-0 Yes [id number] 4mg Take 1 Univers (ZOFRAN) 4 2-26 tablet by ity of mg tablet 00:00: mouth [place] 00 every 8 Medical (eight) Branch hours as needed for Nausea and Vomiting (N/V). ibuprofen 2020-0 Yes [id number] 800mg Take 1 Univers 800 mg 2-26 tablet by ity of tablet 00:00: mouth [place] 00 every 6 Medical (six) Branch hours as needed (alternate with tylenol). ondansetron 2020-0 Yes [id number] 4mg Take 1 Univers (ZOFRAN) 4 2-26 tablet by ity of mg tablet 00:00: mouth [place] 00 every 8 Medical (eight) Branch hours as needed for Nausea and Vomiting (N/V). ibuprofen 2020-0 Yes [id number] 800mg Take 1 Univers 800 mg 2-26 tablet by ity of tablet 00:00: mouth [place] 00 every 6 Medical (six) Branch hours as needed (alternate with tylenol). ondansetron 2020-0 Yes [id number] 4mg Take 1 Univers (ZOFRAN) 4 2-26 tablet by ity of mg tablet 00:00: mouth [place] 00 every 8 Medical (eight) Branch hours as needed for Nausea and Vomiting (N/V). ibuprofen 2020-0 Yes [id number] 800mg Take 1 Univers 800 mg 2-26 tablet by ity of tablet 00:00: mouth [place] 00 every 6 Medical (six) Branch hours as needed (alternate with tylenol). ondansetron 2020-0 Yes [id number] 4mg Take 1 Univers (ZOFRAN) 4 2-26 tablet by ity of mg tablet 00:00: mouth [place] 00 every 8 Medical (eight) Branch hours as needed for Nausea and Vomiting (N/V). ibuprofen 2020-0 Yes [id number] 800mg Take 1 Univers 800 mg 2-26 tablet by ity of tablet 00:00: mouth [place] 00 every 6 Medical (six) Branch hours as needed (alternate with tylenol). ondansetron 2020-0 Yes [id number] 4mg Take 1 Univers (ZOFRAN) 4 2-26 tablet by ity of mg tablet 00:00: mouth [place] 00 every 8 Medical (eight) Branch hours as needed for Nausea and Vomiting (N/V). ibuprofen 2020-0 Yes [id number] 800mg Take 1 Univers 800 mg 2-26 tablet by ity of tablet 00:00: mouth [place] 00 every 6 Medical (six) Branch hours as needed (alternate with tylenol). ondansetron 2020-0 Yes [id number] 4mg Take 1 Univers (ZOFRAN) 4 2-26 tablet by ity of mg tablet 00:00: mouth [place] 00 every 8 Medical (eight) Branch hours as needed for Nausea and Vomiting (N/V). ibuprofen 2020-0 Yes [id number] 800mg Take 1 Univers 800 mg 2-26 tablet by ity of tablet 00:00: mouth [place] 00 every 6 Medical (six) Branch hours as needed (alternate with tylenol). ondansetron 2020-0 Yes [id number] 4mg Take 1 Univers (ZOFRAN) 4 2-26 tablet by ity of mg tablet 00:00: mouth [place] 00 every 8 Medical (eight) Branch hours as needed for Nausea and Vomiting (N/V). ibuprofen 2020-0 Yes [id number] 800mg Take 1 Univers 800 mg 2-26 tablet by ity of tablet 00:00: mouth [place] 00 every 6 Medical (six) Branch hours as needed (alternate with tylenol). ondansetron 2020-0 Yes [id number] 4mg Take 1 Univers (ZOFRAN) 4 2-26 tablet by ity of mg tablet 00:00: mouth [place] 00 every 8 Medical (eight) Branch hours as needed for Nausea and Vomiting (N/V). ibuprofen 2020-0 Yes [id number] 800mg Take 1 Univers 800 mg 2-26 tablet by ity of tablet 00:00: mouth [place] 00 every 6 Medical (six) Branch hours as needed (alternate with tylenol). ondansetron 2020-0 Yes [id number] 4mg Take 1 Univers (ZOFRAN) 4 2-26 tablet by ity of mg tablet 00:00: mouth [place] 00 every 8 Medical (eight) Branch hours as needed for Nausea and Vomiting (N/V). ibuprofen 2020-0 Yes [id number] 800mg Take 1 Univers 800 mg 2-26 tablet by ity of tablet 00:00: mouth [place] 00 every 6 Medical (six) Branch hours as needed (alternate with tylenol). ondansetron 2020-0 Yes [id number] 4mg Take 1 Univers (ZOFRAN) 4 2-26 tablet by ity of mg tablet 00:00: mouth [place] 00 every 8 Medical (eight) Branch hours as needed for Nausea and Vomiting (N/V). ibuprofen 2020-0 Yes [id number] 800mg Take 1 Univers 800 mg 2-26 tablet by ity of tablet 00:00: mouth [place] 00 every 6 Medical (six) Branch hours as needed (alternate with tylenol). ondansetron 2020-0 Yes [id number] 4mg Take 1 Univers (ZOFRAN) 4 2-26 tablet by ity of mg tablet 00:00: mouth [place] 00 every 8 Medical (eight) Branch hours as needed for Nausea and Vomiting (N/V). ibuprofen 2020-0 Yes [id number] 800mg Take 1 Univers 800 mg 2-26 tablet by ity of tablet 00:00: mouth [place] 00 every 6 Medical (six) Branch hours as needed (alternate with tylenol). ondansetron 2020-0 Yes [id number] 4mg Take 1 Univers (ZOFRAN) 4 2-26 tablet by ity of mg tablet 00:00: mouth [place] 00 every 8 Medical (eight) Branch hours as needed for Nausea and Vomiting (N/V). ibuprofen 2020-0 Yes [id number] 800mg Take 1 Univers 800 mg 2-26 tablet by ity of tablet 00:00: mouth [place] 00 every 6 Medical (six) Branch hours as needed (alternate with tylenol). ondansetron 2020-0 Yes [id number] 4mg Take 1 Univers (ZOFRAN) 4 2-26 tablet by ity of mg tablet 00:00: mouth [place] 00 every 8 Medical (eight) Branch hours as needed for Nausea and Vomiting (N/V). ibuprofen 2020-0 Yes [id number] 800mg Take 1 Univers 800 mg 2-26 tablet by ity of tablet 00:00: mouth [place] 00 every 6 Medical (six) Branch hours as needed (alternate with tylenol). ondansetron 2020-0 Yes [id number] 4mg Take 1 Univers (ZOFRAN) 4 2-26 tablet by ity of mg tablet 00:00: mouth [place] 00 every 8 Medical (eight) Branch hours as needed for Nausea and Vomiting (N/V). ibuprofen 2020-0 Yes [id number] 800mg Take 1 Univers 800 mg 2-26 tablet by ity of tablet 00:00: mouth [place] 00 every 6 Medical (six) Branch hours as needed (alternate with tylenol). ondansetron 2020-0 Yes [id number] 4mg Take 1 Univers (ZOFRAN) 4 2-26 tablet by ity of mg tablet 00:00: mouth [place] 00 every 8 Medical (eight) Branch hours as needed for Nausea and Vomiting (N/V). ibuprofen 2020-0 Yes [id number] 800mg Take 1 Univers 800 mg 2-26 tablet by ity of tablet 00:00: mouth [place] 00 every 6 Medical (six) Branch hours as needed (alternate with tylenol). ondansetron 2020-0 Yes [id number] 4mg Take 1 Univers (ZOFRAN) 4 2-26 tablet by ity of mg tablet 00:00: mouth [place] 00 every 8 Medical (eight) Branch hours as needed for Nausea and Vomiting (N/V). ibuprofen 2020-0 Yes [id number] 800mg Take 1 Univers 800 mg 2-26 tablet by ity of tablet 00:00: mouth [place] 00 every 6 Medical (six) Branch hours as needed (alternate with tylenol). ondansetron 2020-0 Yes [id number] 4mg Take 1 Univers (ZOFRAN) 4 2-26 tablet by ity of mg tablet 00:00: mouth [place] 00 every 8 Medical (eight) Branch hours as needed for Nausea and Vomiting (N/V). ibuprofen 2020-0 Yes [id number] 800mg Take 1 Univers 800 mg 2-26 tablet by ity of tablet 00:00: mouth [place] 00 every 6 Medical (six) Branch hours as needed (alternate with tylenol). ondansetron 2020-0 Yes [id number] 4mg Take 1 Univers (ZOFRAN) 4 2-26 tablet by ity of mg tablet 00:00: mouth [place] 00 every 8 Medical (eight) Branch hours as needed for Nausea and Vomiting (N/V). ibuprofen 2020-0 Yes [id number] 800mg Take 1 Univers 800 mg 2-26 tablet by ity of tablet 00:00: mouth [place] 00 every 6 Medical (six) Branch hours as needed (alternate with tylenol). ondansetron 2020-0 Yes [id number] 4mg Take 1 Univers (ZOFRAN) 4 2-26 tablet by ity of mg tablet 00:00: mouth [place] 00 every 8 Medical (eight) Branch hours as needed for Nausea and Vomiting (N/V). ibuprofen 2020-0 Yes [id number] 800mg Take 1 Univers 800 mg 2-26 tablet by ity of tablet 00:00: mouth [place] 00 every 6 Medical (six) Branch hours as needed (alternate with tylenol). ondansetron 2020-0 Yes [id number] 4mg Take 1 Univers (ZOFRAN) 4 2-26 tablet by ity of mg tablet 00:00: mouth [place] 00 every 8 Medical (eight) Branch hours as needed for Nausea and Vomiting (N/V). ibuprofen 2020-0 Yes [id number] 800mg Take 1 Univers 800 mg 2-26 tablet by ity of tablet 00:00: mouth [place] 00 every 6 Medical (six) Branch hours as needed (alternate with tylenol). ondansetron 2020-0 Yes [id number] 4mg Take 1 Univers (ZOFRAN) 4 2-26 tablet by ity of mg tablet 00:00: mouth [place] 00 every 8 Medical (eight) Branch hours as needed for Nausea and Vomiting (N/V). ibuprofen 2020-0 Yes [id number] 800mg Take 1 Univers 800 mg 2-26 tablet by ity of tablet 00:00: mouth [place] 00 every 6 Medical (six) Branch hours as needed (alternate with tylenol). ondansetron 2020-0 Yes [id number] 4mg Take 1 Univers (ZOFRAN) 4 2-26 tablet by ity of mg tablet 00:00: mouth [place] 00 every 8 Medical (eight) Branch hours as needed for Nausea and Vomiting (N/V). ibuprofen 2020-0 Yes [id number] 800mg Take 1 Univers 800 mg 2-26 tablet by ity of tablet 00:00: mouth [place] 00 every 6 Medical (six) Branch hours as needed (alternate with tylenol). ondansetron 2020-0 Yes [id number] 4mg Take 1 Univers (ZOFRAN) 4 2-26 tablet by ity of mg tablet 00:00: mouth [place] 00 every 8 Medical (eight) Branch hours as needed for Nausea and Vomiting (N/V). ibuprofen 2020-0 Yes [id number] 800mg Take 1 Univers 800 mg 2-26 tablet by ity of tablet 00:00: mouth [place] 00 every 6 Medical (six) Branch hours as needed (alternate with tylenol). ondansetron 2020-0 Yes [id number] 4mg Take 1 Univers (ZOFRAN) 4 2-26 tablet by ity of mg tablet 00:00: mouth [place] 00 every 8 Medical (eight) Branch hours as needed for Nausea and Vomiting (N/V). ibuprofen 2020-0 Yes [id number] 800mg Take 1 Univers 800 mg 2-26 tablet by ity of tablet 00:00: mouth [place] 00 every 6 Medical (six) Branch hours as needed (alternate with tylenol). ondansetron 2020-0 Yes [id number] 4mg Take 1 Univers (ZOFRAN) 4 2-26 tablet by ity of mg tablet 00:00: mouth [place] 00 every 8 Medical (eight) Branch hours as needed for Nausea and Vomiting (N/V). ibuprofen 2020-0 Yes [id number] 800mg Take 1 Univers 800 mg 2-26 tablet by ity of tablet 00:00: mouth [place] 00 every 6 Medical (six) Branch hours as needed (alternate with tylenol). ondansetron 2020-0 Yes [id number] 4mg Take 1 Univers (ZOFRAN) 4 2-26 tablet by ity of mg tablet 00:00: mouth [place] 00 every 8 Medical (eight) Branch hours as needed for Nausea and Vomiting (N/V). ibuprofen 2020-0 Yes [id number] 800mg Take 1 Univers 800 mg 2-26 tablet by ity of tablet 00:00: mouth [place] 00 every 6 Medical (six) Branch hours as needed (alternate with tylenol). ondansetron 2020-0 Yes [id number] 4mg Take 1 Univers (ZOFRAN) 4 2-26 tablet by ity of mg tablet 00:00: mouth [place] 00 every 8 Medical (eight) Branch hours as needed for Nausea and Vomiting (N/V). ibuprofen 2020-0 Yes [id number] 800mg Take 1 Univers 800 mg 2-26 tablet by ity of tablet 00:00: mouth [place] 00 every 6 Medical (six) Branch hours as needed (alternate with tylenol). ondansetron 2020-0 Yes [id number] 4mg Take 1 Univers (ZOFRAN) 4 2-26 tablet by ity of mg tablet 00:00: mouth [place] 00 every 8 Medical (eight) Branch hours as needed for Nausea and Vomiting (N/V). ibuprofen 2020-0 Yes [id number] 800mg Take 1 Univers 800 mg 2-26 tablet by ity of tablet 00:00: mouth [place] 00 every 6 Medical (six) Branch hours as needed (alternate with tylenol). ondansetron 2020-0 Yes [id number] 4mg Take 1 Univers (ZOFRAN) 4 2-26 tablet by ity of mg tablet 00:00: mouth [place] 00 every 8 Medical (eight) Branch hours as needed for Nausea and Vomiting (N/V). ibuprofen 2020-0 Yes [id number] 800mg Take 1 [facility] 800 mg 2-26 tablet by [facility] of tablet 00:00: mouth [place] 00 every 6 Medical (six) Branch hours as needed (alternate with tylenol). ondansetron 2020-0 Yes [id number] 4mg Take 1 [facility] (ZOFRAN) 4 2-26 tablet by ity of mg tablet 00:00: mouth [place] 00 every 8 Medical (eight) Branch hours as needed for Nausea and Vomiting (N/V). ibuprofen 2020-0 Yes [id number] 800mg Take 1 [facility] 800 mg 2-26 tablet by [facility] of tablet 00:00: mouth [place] 00 every 6 Medical (six) Branch hours as needed (alternate with tylenol). ondansetron 2020-0 Yes [id number] 4mg Take 1 [facility] (ZOFRAN) 4 2-26 tablet by ity of mg tablet 00:00: mouth [place] 00 every 8 Medical (eight) Branch hours as needed for Nausea and Vomiting (N/V). ibuprofen 2020-0 Yes [id number] 800mg Take 1 [facility] 800 mg 2-26 tablet by [facility] of tablet 00:00: mouth [place] 00 every 6 Medical (six) Branch hours as needed (alternate with tylenol). ondansetron 2020-0 Yes [id number] 4mg Take 1 [facility] (ZOFRAN) 4 2-26 tablet by [facility]y of mg tablet 00:00: mouth [place] 00 every 8 Medical (eight) Branch hours as needed for Nausea and Vomiting (N/V). ibuprofen 2020-0 Yes [id number] 800mg Take 1 [facility] 800 mg 2-26 tablet by [facility] of tablet 00:00: mouth [place] 00 every 6 Medical (six) Branch hours as needed (alternate with tylenol). ondansetron 2020-0 Yes [id number] 4mg Take 1 [facility] (ZOFRAN) 4 2-26 tablet by [facility]y of mg tablet 00:00: mouth [place] 00 every 8 Medical (eight) Branch hours as needed for Nausea and Vomiting (N/V). ibuprofen 2020-0 Yes [id number] 800mg Take 1 [facility] 800 mg 2-26 tablet by [facility] of tablet 00:00: mouth [place] 00 every 6 Medical (six) Branch hours as needed (alternate with tylenol). ondansetron 2020-0 Yes [id number] 4mg Take 1 [facility] (ZOFRAN) 4 2-26 tablet by [facility] of mg tablet 00:00: mouth [place] 00 every 8 Medical (eight) Branch hours as needed for Nausea and Vomiting (N/V). ibuprofen 2020-0 Yes [id number] 800mg Take 1 [facility] 800 mg 2-26 tablet by [facility] of tablet 00:00: mouth [place] 00 every 6 Medical (six) Branch hours as needed (alternate with tylenol). ondansetron 2020-0 Yes [id number] 4mg Take 1 [facility] (ZOFRAN) 4 2-26 tablet by [facility]y of mg tablet 00:00: mouth [place] 00 every 8 Medical (eight) Branch hours as needed for Nausea and Vomiting (N/V). ibuprofen 2020-0 Yes [id number] 800mg Take 1 [facility] 800 mg 2-26 tablet by [facility] of tablet 00:00: mouth [place] 00 every 6 Medical (six) Branch hours as needed (alternate with tylenol). ondansetron 2020-0 Yes [id number] 4mg Take 1 [facility] (ZOFRAN) 4 2-26 tablet by [facility] of mg tablet 00:00: mouth [place] 00 every 8 Medical (eight) Branch hours as needed for Nausea and Vomiting (N/V). acetaminoph 2019-0 2020- No [id number] 650mg Take 2 [facility] en 2-26 02-26 tablets by ity of (TYLENOL) 00:00: 05:59 mouth [place] 325 mg 00 :00 every 6 Medical tablet (six) Branch hours as needed for Alternate with ibuprofen for pain scale 1-3 or Alternate with ibuprofen for pain scale 4-6. acetaminoph 2020-0 2020- No [id number] 650mg Take 2 [facility] en 2-26 02-26 tablets by ity of (TYLENOL) 00:00: 05:59 mouth [place] 325 mg 00 :00 every 6 Medical tablet (six) Branch hours as needed for Alternate with ibuprofen for pain scale 1-3 or Alternate with ibuprofen for pain scale 4-6. acetaminoph 2020-0 2020- No [id number] 650mg Take 2 [facility] en 2-26 02-26 tablets by ity of (TYLENOL) 00:00: 05:59 mouth [place] 325 mg 00 :00 every 6 Medical tablet (six) Branch hours as needed for Alternate with ibuprofen for pain scale 1-3 or Alternate with ibuprofen for pain scale 4-6. acetaminoph 2020- No [id number] 650mg Take 2 [facility] en 2-26 02-26 tablets by ity of (TYLENOL) 00:00: 05:59 mouth [place] 325 mg 00 :00 every 6 Medical tablet (six) Branch hours as needed for Alternate with ibuprofen for pain scale 1-3 or Alternate with ibuprofen for pain scale 4-6. acetaminoph 2020- No [id number] 650mg Take 2 [facility] en 2-26 - tablets by ity of (TYLENOL) 00:00: 05:59 mouth [place] 325 mg 00 :00 every 6 Medical tablet (six) Branch hours as needed for Alternate with ibuprofen for pain scale 1-3 or Alternate with ibuprofen for pain scale 4-6. acetaminoph 2020- No [id number] 650mg Take 2 [facility] en 2-31 08- tablets by ity of (TYLENOL) 00:00: 05:59 mouth [place] 325 mg 00 :00 every 6 Medical tablet (six) Branch hours as needed for Alternate with ibuprofen for pain scale 1-3 or Alternate with ibuprofen for pain scale 4-6. acetaminoph 2020- No [id number] 650mg Take 2 [facility] en 2-31 08- tablets by ity of (TYLENOL) 00:00: 05:59 mouth [place] 325 mg 00 :00 every 6 Medical tablet (six) Branch hours as needed for Alternate with ibuprofen for pain scale 1-3 or Alternate with ibuprofen for pain scale 4-6. acetaminoph 2020- No [id number] 650mg Take 2 [facility] en 2-26 -26 tablets by ity of (TYLENOL) 00:00: 05:59 mouth [place] 325 mg 00 :00 every 6 Medical tablet (six) Branch hours as needed for Alternate with ibuprofen for pain scale 1-3 or Alternate with ibuprofen for pain scale 4-6. acetaminoph 2020- No [id number] 650mg Take 2 [facility] en 2-26 -26 tablets by ity of (TYLENOL) 00:00: 05:59 mouth [place] 325 mg 00 :00 every 6 Medical tablet (six) Branch hours as needed for Alternate with ibuprofen for pain scale 1-3 or Alternate with ibuprofen for pain scale 4-6. acetaminoph 2020- No [id number] 650mg Take 2 [facility] en 2-26 02-26 tablets by ity of (TYLENOL) 00:00: 05:59 mouth [place] 325 mg 00 :00 every 6 Medical tablet (six) Branch hours as needed for Alternate with ibuprofen for pain scale 1-3 or Alternate with ibuprofen for pain scale 4-6. acetaminoph 2020- No [id number] 650mg Take 2 [facility] en 2-26 02-26 tablets by ity of (TYLENOL) 00:00: 05:59 mouth [place] 325 mg 00 :00 every 6 Medical tablet (six) Branch hours as needed for Alternate with ibuprofen for pain scale 1-3 or Alternate with ibuprofen for pain scale 4-6. acetaminoph 2020- No [id number] 650mg Take 2 [facility] en 2-26 02-26 tablets by ity of (TYLENOL) 00:00: 05:59 mouth [place] 325 mg 00 :00 every 6 Medical tablet (six) Branch hours as needed for Alternate with ibuprofen for pain scale 1-3 or Alternate with ibuprofen for pain scale 4-6. acetaminoph 2020- No [id number] 650mg Take 2 [facility] en 2-26 02-26 tablets by ity of (TYLENOL) 00:00: 05:59 mouth [place] 325 mg 00 :00 every 6 Medical tablet (six) Branch hours as needed for Alternate with ibuprofen for pain scale 1-3 or Alternate with ibuprofen for pain scale 4-6. acetaminoph 2020- No [id number] 650mg Take 2 [facility] en 2-26 02-26 tablets by ity of (TYLENOL) 00:00: 05:59 mouth [place] 325 mg 00 :00 every 6 Medical tablet (six) Branch hours as needed for Alternate with ibuprofen for pain scale 1-3 or Alternate with ibuprofen for pain scale 4-6. acetaminoph 2020- No [id number] 650mg Take 2 [facility] en 2-26 02-26 tablets by ity of (TYLENOL) 00:00: 05:59 mouth [place] 325 mg 00 :00 every 6 Medical tablet (six) Branch hours as needed for Alternate with ibuprofen for pain scale 1-3 or Alternate with ibuprofen for pain scale 4-6. acetaminoph 2020- No [id number] 650mg Take 2 [facility] en 2-26 02-26 tablets by ity of (TYLENOL) 00:00: 05:59 mouth [place] 325 mg 00 :00 every 6 Medical tablet (six) Branch hours as needed for Alternate with ibuprofen for pain scale 1-3 or Alternate with ibuprofen for pain scale 4-6. acetaminoph 2020- No [id number] 650mg Take 2 [facility] en 2-26 02-26 tablets by ity of (TYLENOL) 00:00: 05:59 mouth [place] 325 mg 00 :00 every 6 Medical tablet (six) Branch hours as needed for Alternate with ibuprofen for pain scale 1-3 or Alternate with ibuprofen for pain scale 4-6. acetaminoph 2020- No [id number] 650mg Take 2 [facility] en 2-26 02-26 tablets by ity of (TYLENOL) 00:00: 05:59 mouth [place] 325 mg 00 :00 every 6 Medical tablet (six) Branch hours as needed for Alternate with ibuprofen for pain scale 1-3 or Alternate with ibuprofen for pain scale 4-6. acetaminoph 2020- No [id number] 650mg Take 2 [facility] en 2-26 02-26 tablets by ity of (TYLENOL) 00:00: 05:59 mouth [place] 325 mg 00 :00 every 6 Medical tablet (six) Branch hours as needed for Alternate with ibuprofen for pain scale 1-3 or Alternate with ibuprofen for pain scale 4-6. acetaminoph 2020- No [id number] 650mg Take 2 [facility] en 2-26 02-26 tablets by ity of (TYLENOL) 00:00: 05:59 mouth [place] 325 mg 00 :00 every 6 Medical tablet (six) Branch hours as needed for Alternate with ibuprofen for pain scale 1-3 or Alternate with ibuprofen for pain scale 4-6. acetaminoph 2020- No [id number] 650mg Take 2 [facility] en 2-26 02-26 tablets by ity of (TYLENOL) 00:00: 05:59 mouth [place] 325 mg 00 :00 every 6 Medical tablet (six) Branch hours as needed for Alternate with ibuprofen for pain scale 1-3 or Alternate with ibuprofen for pain scale 4-6. acetaminoph 2020- No [id number] 650mg Take 2 [facility] en 2-26 02-26 tablets by ity of (TYLENOL) 00:00: 05:59 mouth [place] 325 mg 00 :00 every 6 Medical tablet (six) Branch hours as needed for Alternate with ibuprofen for pain scale 1-3 or Alternate with ibuprofen for pain scale 4-6. acetaminoph 2020- No [id number] 650mg Take 2 [facility] en 2-26 02-26 tablets by ity of (TYLENOL) 00:00: 05:59 mouth [place] 325 mg 00 :00 every 6 Medical tablet (six) Branch hours as needed for Alternate with ibuprofen for pain scale 1-3 or Alternate with ibuprofen for pain scale 4-6. acetaminoph 2020- No [id number] 650mg Take 2 [facility] en 2-26 02-26 tablets by ity of (TYLENOL) 00:00: 05:59 mouth [place] 325 mg 00 :00 every 6 Medical tablet (six) Branch hours as needed for Alternate with ibuprofen for pain scale 1-3 or Alternate with ibuprofen for pain scale 4-6. acetaminoph 2020- No [id number] 650mg Take 2 [facility] en 2-26 02-26 tablets by ity of (TYLENOL) 00:00: 05:59 mouth [place] 325 mg 00 :00 every 6 Medical tablet (six) Branch hours as needed for Alternate with ibuprofen for pain scale 1-3 or Alternate with ibuprofen for pain scale 4-6. acetaminoph 2020- No [id number] 650mg Take 2 [facility] en 2- 02-26 tablets by ity of (TYLENOL) 00:00: 05:59 mouth [place] 325 mg 00 :00 every 6 Medical tablet (six) Branch hours as needed for Alternate with ibuprofen for pain scale 1-3 or Alternate with ibuprofen for pain scale 4-6. acetaminoph 2020- No [id number] 650mg Take 2 [facility] en 2-26 02-26 tablets by ity of (TYLENOL) 00:00: 05:59 mouth [place] 325 mg 00 :00 every 6 Medical tablet (six) Branch hours as needed for Alternate with ibuprofen for pain scale 1-3 or Alternate with ibuprofen for pain scale 4-6. acetaminoph 2020- No [id number] 650mg Take 2 [facility] en 2-26 02-26 tablets by ity of (TYLENOL) 00:00: 05:59 mouth [place] 325 mg 00 :00 every 6 Medical tablet (six) Branch hours as needed for Alternate with ibuprofen for pain scale 1-3 or Alternate with ibuprofen for pain scale 4-6. acetaminoph 2020- No [id number] 650mg Take 2 [facility] en 2-26 02-26 tablets by ity of (TYLENOL) 00:00: 05:59 mouth [place] 325 mg 00 :00 every 6 Medical tablet (six) Branch hours as needed for Alternate with ibuprofen for pain scale 1-3 or Alternate with ibuprofen for pain scale 4-6. acetaminoph 2020- No [id number] 650mg Take 2 [facility] en 2-26 02-26 tablets by ity of (TYLENOL) 00:00: 05:59 mouth [place] 325 mg 00 :00 every 6 Medical tablet (six) Branch hours as needed for Alternate with ibuprofen for pain scale 1-3 or Alternate with ibuprofen for pain scale 4-6. acetaminoph 2020- No [id number] 650mg Take 2 [facility] en 2-26 02-26 tablets by ity of (TYLENOL) 00:00: 05:59 mouth [place] 325 mg 00 :00 every 6 Medical tablet (six) Branch hours as needed for Alternate with ibuprofen for pain scale 1-3 or Alternate with ibuprofen for pain scale 4-6. acetaminoph 2020- No [id number] 650mg Take 2 [facility] en 2-26 02-26 tablets by ity of (TYLENOL) 00:00: 05:59 mouth [place] 325 mg 00 :00 every 6 Medical tablet (six) Branch hours as needed for Alternate with ibuprofen for pain scale 1-3 or Alternate with ibuprofen for pain scale 4-6. acetaminoph 2020- No [id number] 650mg Take 2 [facility] en 2-26 02-26 tablets by ity of (TYLENOL) 00:00: 05:59 mouth [place] 325 mg 00 :00 every 6 Medical tablet (six) Branch hours as needed for Alternate with ibuprofen for pain scale 1-3 or Alternate with ibuprofen for pain scale 4-6. acetaminoph 2020- No [id number] 650mg Take 2 [facility] en 2-26 02-26 tablets by ity of (TYLENOL) 00:00: 05:59 mouth [place] 325 mg 00 :00 every 6 Medical tablet (six) Branch hours as needed for Alternate with ibuprofen for pain scale 1-3 or Alternate with ibuprofen for pain scale 4-6. acetaminoph 2020- No [id number] 650mg Take 2 [facility] en -31 08- tablets by ity of (TYLENOL) 00:00: 05:59 mouth [place] 325 mg 00 :00 every 6 Medical tablet (six) Branch hours as needed for Alternate with ibuprofen for pain scale 1-3 or Alternate with ibuprofen for pain scale 4-6. acetaminoph 2020- No [id number] 650mg Take 2 [facility] en -31 08- tablets by ity of (TYLENOL) 00:00: 05:59 mouth [place] 325 mg 00 :00 every 6 Medical tablet (six) Branch hours as needed for Alternate with ibuprofen for pain scale 1-3 or Alternate with ibuprofen for pain scale 4-6. acetaminoph 2020- No [id number] 650mg Take 2 [facility] en 08-31- tablets by ity of (TYLENOL) 00:00: 05:59 mouth [place] 325 mg 00 :00 every 6 Medical tablet (six) Branch hours as needed for Alternate with ibuprofen for pain scale 1-3 or Alternate with ibuprofen for pain scale 4-6. acetaminoph 2020- No [id number] 650mg Take 2 [facility] en -31 08- tablets by ity of (TYLENOL) 00:00: 05:59 mouth [place] 325 mg 00 :00 every 6 Medical tablet (six) Branch hours as needed for Alternate with ibuprofen for pain scale 1-3 or Alternate with ibuprofen for pain scale 4-6. acetaminoph 2020- No [id number] 650mg Take 2 [facility] en -31 08- tablets by ity of (TYLENOL) 00:00: 05:59 mouth [place] 325 mg 00 :00 every 6 Medical tablet (six) Branch hours as needed for Alternate with ibuprofen for pain scale 1-3 or Alternate with ibuprofen for pain scale 4-6. traMADol 50 2019- No [id number] 50mg Take 1 [facility] mg tablet 08-31 03-05 tablet by ity of 00:00: 05:59 mouth [place] 00 :00 every 6 Medical (six) Branch hours as needed for Pain (scale 7-10) for up to 7 days. fluconazole 2020-0 Yes [id number] 150mg Take 1 [facility] (DIFLUCAN) 2-25 tablet by ity of 150 mg 00:00: mouth once [place] tablet 00 every Medical month. Branch Once as needed post menses due to anticipate d vaginitis fluconazole 2020-0 Yes [id number] 150mg Take 1 [facility] (DIFLUCAN) 2-25 tablet by ity of 150 mg 00:00: mouth once [place] tablet 00 every Medical month. Branch Once as needed post menses due to anticipate d vaginitis fluconazole 2020-0 Yes [id number] 150mg Take 1 [facility] (DIFLUCAN) 2-25 tablet by ity of 150 mg 00:00: mouth once [place] tablet 00 every Medical month. Branch Once as needed post menses due to anticipate d vaginitis fluconazole 2020-0 Yes [id number] 150mg Take 1 [facility] (DIFLUCAN) 2-25 tablet by ity of 150 mg 00:00: mouth once [place] tablet 00 every Medical month. Branch Once as needed post menses due to anticipate d vaginitis fluconazole 2020-0 Yes [id number] 150mg Take 1 [facility] (DIFLUCAN) 2-25 tablet by ity of 150 mg 00:00: mouth once [place] tablet 00 every Medical month. Branch Once as needed post menses due to anticipate d vaginitis fluconazole 2020-0 Yes [id number] 150mg Take 1 [facility] (DIFLUCAN) 2-25 tablet by ity of 150 mg 00:00: mouth once [place] tablet 00 every Medical month. Branch Once as needed post menses due to anticipate d vaginitis fluconazole 2020-0 Yes [id number] 150mg Take 1 [facility] (DIFLUCAN) 2-25 tablet by ity of 150 mg 00:00: mouth once [place] tablet 00 every Medical month. Branch Once as needed post menses due to anticipate d vaginitis fluconazole 2020-0 Yes [id number] 150mg Take 1 [facility] (DIFLUCAN) 2-25 tablet by ity of 150 mg 00:00: mouth once [place] tablet 00 every Medical month. Branch Once as needed post menses due to anticipate d vaginitis fluconazole 2020-0 Yes [id number] 150mg Take 1 [facility] (DIFLUCAN) 2-25 tablet by ity of 150 mg 00:00: mouth once [place] tablet 00 every Medical month. Branch Once as needed post menses due to anticipate d vaginitis fluconazole 2020-0 Yes [id number] 150mg Take 1 [facility] (DIFLUCAN) 2-25 tablet by ity of 150 mg 00:00: mouth once [place] tablet 00 every Medical month. Branch Once as needed post menses due to anticipate d vaginitis fluconazole 2020-0 Yes [id number] 150mg Take 1 [facility] (DIFLUCAN) 2-25 tablet by ity of 150 mg 00:00: mouth once [place] tablet 00 every Medical month. Branch Once as needed post menses due to anticipate d vaginitis fluconazole 2020-0 Yes [id number] 150mg Take 1 [facility] (DIFLUCAN) 2-25 tablet by ity of 150 mg 00:00: mouth once [place] tablet 00 every Medical month. Branch Once as needed post menses due to anticipate d vaginitis fluconazole 2020-0 Yes [id number] 150mg Take 1 [facility] (DIFLUCAN) 2-25 tablet by ity of 150 mg 00:00: mouth once [place] tablet 00 every Medical month. Branch Once as needed post menses due to anticipate d vaginitis fluconazole 2020-0 Yes [id number] 150mg Take 1 [facility] (DIFLUCAN) 2-25 tablet by ity of 150 mg 00:00: mouth once [place] tablet 00 every Medical month. Branch Once as needed post menses due to anticipate d vaginitis fluconazole 2020-0 Yes [id number] 150mg Take 1 [facility] (DIFLUCAN) 2-25 tablet by ity of 150 mg 00:00: mouth once [place] tablet 00 every Medical month. Branch Once as needed post menses due to anticipate d vaginitis fluconazole 2020-0 Yes [id number] 150mg Take 1 [facility] (DIFLUCAN) 2-25 tablet by ity of 150 mg 00:00: mouth once [place] tablet 00 every Medical month. Branch Once as needed post menses due to anticipate d vaginitis fluconazole 2020-0 Yes [id number] 150mg Take 1 [facility] (DIFLUCAN) 2-25 tablet by ity of 150 mg 00:00: mouth once [place] tablet 00 every Medical month. Branch Once as needed post menses due to anticipate d vaginitis fluconazole 2020-0 Yes [id number] 150mg Take 1 [facility] (DIFLUCAN) 2-25 tablet by ity of 150 mg 00:00: mouth once [place] tablet 00 every Medical month. Branch Once as needed post menses due to anticipate d vaginitis fluconazole 2020-0 Yes [id number] 150mg Take 1 [facility] (DIFLUCAN) 2-25 tablet by ity of 150 mg 00:00: mouth once [place] tablet 00 every Medical month. Branch Once as needed post menses due to anticipate d vaginitis fluconazole 2020-0 Yes [id number] 150mg Take 1 [facility] (DIFLUCAN) 2-25 tablet by ity of 150 mg 00:00: mouth once [place] tablet 00 every Medical month. Branch Once as needed post menses due to anticipate d vaginitis fluconazole 2020-0 Yes [id number] 150mg Take 1 [facility] (DIFLUCAN) 2-25 tablet by ity of 150 mg 00:00: mouth once [place] tablet 00 every Medical month. Branch Once as needed post menses due to anticipate d vaginitis fluconazole 2020-0 Yes [id number] 150mg Take 1 [facility] (DIFLUCAN) 2-25 tablet by ity of 150 mg 00:00: mouth once [place] tablet 00 every Medical month. Branch Once as needed post menses due to anticipate d vaginitis fluconazole 2020-0 Yes [id number] 150mg Take 1 [facility] (DIFLUCAN) 2-25 tablet by ity of 150 mg 00:00: mouth once [place] tablet 00 every Medical month. Branch Once as needed post menses due to anticipate d vaginitis fluconazole 2020-0 Yes [id number] 150mg Take 1 [facility] (DIFLUCAN) 2-25 tablet by ity of 150 mg 00:00: mouth once [place] tablet 00 every Medical month. Branch Once as needed post menses due to anticipate d vaginitis fluconazole 2020-0 Yes [id number] 150mg Take 1 [facility] (DIFLUCAN) 2-25 tablet by ity of 150 mg 00:00: mouth once [place] tablet 00 every Medical month. Branch Once as needed post menses due to anticipate d vaginitis fluconazole 2020-0 Yes [id number] 150mg Take 1 [facility] (DIFLUCAN) 2-25 tablet by ity of 150 mg 00:00: mouth once [place] tablet 00 every Medical month. Branch Once as needed post menses due to anticipate d vaginitis fluconazole 2020-0 Yes [id number] 150mg Take 1 [facility] (DIFLUCAN) 2-25 tablet by ity of 150 mg 00:00: mouth once [place] tablet 00 every Medical month. Branch Once as needed post menses due to anticipate d vaginitis fluconazole 2020-0 Yes [id number] 150mg Take 1 [facility] (DIFLUCAN) 2-25 tablet by ity of 150 mg 00:00: mouth once [place] tablet 00 every Medical month. Branch Once as needed post menses due to anticipate d vaginitis fluconazole 2020-0 Yes [id number] 150mg Take 1 [facility] (DIFLUCAN) 2-25 tablet by ity of 150 mg 00:00: mouth once [place] tablet 00 every Medical month. Branch Once as needed post menses due to anticipate d vaginitis fluconazole 2019-0 2020- No [id number] 150mg Take 1 [facility] (DIFLUCAN) 2-25 08-25 tablet by [facility] of 150 mg 00:00: 00:00 mouth once [place] tablet 00 :00 every Medical month. Branch Once as needed post menses due to anticipate d vaginitis fluconazole 2019- No [id number] 150mg Take 1 [facility] (DIFLUCAN) 08-01 tablet by [facility] of 150 mg 00:00: 05:59 mouth once [place] tablet 00 :00 now for 1 Medical dose. Branch fluconazole 2019- No [id number] 150mg Take 1 [facility] (DIFLUCAN) 08-01 tablet by [facility] of 150 mg 00:00: 05:59 mouth once [place] tablet 00 :00 now for 1 Medical dose. Branch naproxen 2019- No [id number] 500mg Take 1 [facility] 500 mg 1-10 02-10 tablet by [facility] of tablet 00:00: 05:59 mouth 2 [place] 00 :00 (two) Medical times Branch daily as needed for Pain (scale 4-6) for up to 30 days. naproxen 2019- No [id number] 500mg Take 1 [facility] 500 mg 1-10 02-10 tablet by [facility] of tablet 00:00: 05:59 mouth 2 [place] 00 :00 (two) Medical times Branch daily as needed for Pain (scale 4-6) for up to 30 days. naproxen 2019- No [id number] 500mg Take 1 [facility] 500 mg 1-10 02-10 tablet by [facility]y of tablet 00:00: 05:59 mouth 2 [place] 00 :00 (two) Medical times Branch daily as needed for Pain (scale 4-6) for up to 30 days. naproxen 2019- No [id number] 500mg Take 1 [facility] n[facility] 500 mg 07-15 tablet by [facility]y of tablet 00:00: 05:59 mouth 2 [place] 00 :00 (two) Medical times Branch daily as needed for Pain (scale 4-6) for up to 30 days. fluconazole 2020-0 2020- No [id number] 150mg Take 1 [facility] (DIFLUCAN) 07-15 tablet by [facility] of 150 mg 00:00: 05:59 mouth once [place] tablet 00 :00 now for 1 Medical dose. Branch insulin NPH Yes [id number] First [facility] nivers 100 unit/mL 02-21 trimester- it y of injection 00:00: 0.7 [place] 00 u/kgSecond Medical trimester- Branch 0.8 u/kgThird trimester- 0.9 u/kg for total daily dose. Divide total dose 2/3 in morning and 1/3 with dinner. Morning dose will be divided as 2NPH: 1 Reg. Evening dose will be divided as 1NPH:1Reg insulin Yes [id number] First [facility] rs regular 02-21 trimester- ity of human 100 00:00: 0.7 [place] unit/mL 00 u/kgSecond Medica l injection trimester- Bran ch 0.8 u/kgThird trimester- 0.9 u/kg for total daily dose. Divide total dose 2/3 in morning and 1/3 with dinner. Morning dose will be divided as 2NPH: 1 Reg. Evening dose will be divided as 1NPH:1Reg insulin NPH Yes [id number] First [facility] 100 unit/mL 02-21 trimester- it y of injection 00:00: 0.7 [place] 00 u/kgSecond Medical trimester- Branch 0.8 u/kgThird trimester- 0.9 u/kg for total daily dose. Divide total dose 2/3 in morning and 1/3 with dinner. Morning dose will be divided as 2NPH: 1 Reg. Evening dose will be divided as 1NPH:1Reg insulin Yes [id number] First [facility] rs regular - trimester- ity of human 100 00:00: 0.7 [place] unit/mL 00 u/kgSecond Medica l injection trimester- Bran ch 0.8 u/kgThird trimester- 0.9 u/kg for total daily dose. Divide total dose 2/3 in morning and 1/3 with dinner. Morning dose will be divided as 2NPH: 1 Reg. Evening dose will be divided as 1NPH:1Reg insulin NPH 2019- Yes [id number] First [facility] 100 unit/mL 02-21 trimester- it y of injection 00:00: 0.7 [place] 00 u/kgSecond Medical trimester- Branch 0.8 u/kgThird trimester- 0.9 u/kg for total daily dose. Divide total dose 2/3 in morning and 1/3 with dinner. Morning dose will be divided as 2NPH: 1 Reg. Evening dose will be divided as 1NPH:1Reg insulin 2019- Yes [id number] First [facility] rs regular - trimester- ity of human 100 00:00: 0.7 [place] unit/mL 00 u/kgSecond Medica l injection trimester- Bran ch 0.8 u/kgThird trimester- 0.9 u/kg for total daily dose. Divide total dose 2/3 in morning and 1/3 with dinner. Morning dose will be divided as 2NPH: 1 Reg. Evening dose will be divided as 1NPH:1Reg insulin NPH Yes [id number] First [facility] nivers 100 unit/mL 02-21 trimester- it y of injection 00:00: 0.7 [place] 00 u/kgSecond Medical trimester- Branch 0.8 u/kgThird trimester- 0.9 u/kg for total daily dose. Divide total dose 2/3 in morning and 1/3 with dinner. Morning dose will be divided as 2NPH: 1 Reg. Evening dose will be divided as 1NPH:1Reg insulin 2019- Yes [id number] [facility] - trimester- ity of human 100 00:00: 0.7 [place] unit/mL 00 u/kgSecond Medica l injection trimester- Bran ch 0.8 u/kgThird trimester- 0.9 u/kg for total daily dose. Divide total dose 2/3 in morning and 1/3 with dinner. Morning dose will be divided as 2NPH: 1 Reg. Evening dose will be divided as 1NPH:1Reg insulin NPH 2019- Yes [id number] [facility] unit/mL 02-21 trimester- it y of injection 00:00: 0.7 [place] 00 u/kgSecond Medical trimester- Branch 0.8 u/kgThird trimester- 0.9 u/kg for total daily dose. Divide total dose 2/3 in morning and 1/3 with dinner. Morning dose will be divided as 2NPH: 1 Reg. Evening dose will be divided as 1NPH:1Reg insulin 2019- Yes [id number] [facility] rs regular 8-19 trimester- ity of human 100 00:00: 0.7 [place] unit/mL 00 u/kgSecond Medica l injection trimester- Bran ch 0.8 u/kgThird trimester- 0.9 u/kg for total daily dose. Divide total dose 2/3 in morning and 1/3 with dinner. Morning dose will be divided as 2NPH: 1 Reg. Evening dose will be divided as 1NPH:1Reg insulin NPH 2018- Yes [id number] [facility] unit/mL 02-21 trimester- it y of injection 00:00: 0.7 [place] 00 u/kgSecond Medical trimester- Branch 0.8 u/kgThird trimester- 0.9 u/kg for total daily dose. Divide total dose 2/3 in morning and 1/3 with dinner. Morning dose will be divided as 2NPH: 1 Reg. Evening dose will be divided as 1NPH:1Reg insulin 2019- Yes [id number] [facility] regular 8-19 trimester- ity of human 100 00:00: 0.7 [place] unit/mL 00 u/kgSecond Medica l injection trimester- Bran ch 0.8 u/kgThird trimester- 0.9 u/kg for total daily dose. Divide total dose 2/3 in morning and 1/3 with dinner. Morning dose will be divided as 2NPH: 1 Reg. Evening dose will be divided as 1NPH:1Reg insulin NPH 2018- Yes [id number] [facility] unit/mL 8- trimester- it y of injection 00:00: 0.7 [place] 00 u/kgSecond Medical trimester- Branch 0.8 u/kgThird trimester- 0.9 u/kg for total daily dose. Divide total dose 2/3 in morning and 1/3 with dinner. Morning dose will be divided as 2NPH: 1 Reg. Evening dose will be divided as 1NPH:1Reg insulin 2019- Yes [id number] [facility] regular 8-19 trimester- ity of human 100 00:00: 0.7 [place] unit/mL 00 u/kgSecond Medica l injection trimester- Bran ch 0.8 u/kgThird trimester- 0.9 u/kg for total daily dose. Divide total dose 2/3 in morning and 1/3 with dinner. Morning dose will be divided as 2NPH: 1 Reg. Evening dose will be divided as 1NPH:1Reg insulin NPH Yes [id number] [facility] unit/mL 02-21 trimester- it y of injection 00:00: 0.7 [place] 00 u/kgSecond Medical trimester- Branch 0.8 u/kgThird trimester- 0.9 u/kg for total daily dose. Divide total dose 2/3 in morning and 1/3 with dinner. Morning dose will be divided as 2NPH: 1 Reg. Evening dose will be divided as 1NPH:1Reg insulin Yes [id number] [facility] regular - trimester- ity of human 100 00:00: 0.7 [place] unit/mL 00 u/kgSecond Medica l injection trimester- Bran ch 0.8 u/kgThird trimester- 0.9 u/kg for total daily dose. Divide total dose 2/3 in morning and 1/3 with dinner. Morning dose will be divided as 2NPH: 1 Reg. Evening dose will be divided as 1NPH:1Reg insulin NPH Yes [id number] [facility] unit/mL 02-21 trimester- it y of injection 00:00: 0.7 [place] 00 u/kgSecond Medical trimester- Branch 0.8 u/kgThird trimester- 0.9 u/kg for total daily dose. Divide total dose 2/3 in morning and 1/3 with dinner. Morning dose will be divided as 2NPH: 1 Reg. Evening dose will be divided as 1NPH:1Reg insulin 2018- Yes [id number] [facility] regular -19 trimester- ity of human 100 00:00: 0.7 [place] unit/mL 00 u/kgSecond Medica l injection trimester- Bran ch 0.8 u/kgThird trimester- 0.9 u/kg for total daily dose. Divide total dose 2/3 in morning and 1/3 with dinner. Morning dose will be divided as 2NPH: 1 Reg. Evening dose will be divided as 1NPH:1Reg insulin NPH 2019-0 Yes [id number] [facility] unit/mL 02-21 trimester- it y of injection 00:00: 0.7 [place] 00 u/kgSecond Medical trimester- Branch 0.8 u/kgThird trimester- 0.9 u/kg for total daily dose. Divide total dose 2/3 in morning and 1/3 with dinner. Morning dose will be divided as 2NPH: 1 Reg. Evening dose will be divided as 1NPH:1Reg insulin 2019-0 Yes [id number] [facility] - trimester- ity of human 100 00:00: 0.7 [place] unit/mL 00 u/kgSecond Medica l injection trimester- Bran ch 0.8 u/kgThird trimester- 0.9 u/kg for total daily dose. Divide total dose 2/3 in morning and 1/3 with dinner. Morning dose will be divided as 2NPH: 1 Reg. Evening dose will be divided as 1NPH:1Reg insulin NPH Yes [id number] [facility] unit/mL 02-21 trimester- it y of injection 00:00: 0.7 [place] 00 u/kgSecond Medical trimester- Branch 0.8 u/kgThird trimester- 0.9 u/kg for total daily dose. Divide total dose 2/3 in morning and 1/3 with dinner. Morning dose will be divided as 2NPH: 1 Reg. Evening dose will be divided as 1NPH:1Reg insulin 2019-0 Yes [id number] [facility] 00:00: 0.7 [place] unit/mL 00 u/kgSecond Medica l injection trimester- Bran ch 0.8 u/kgThird trimester- 0.9 u/kg for total daily dose. Divide total dose 2/3 in morning and 1/3 with dinner. Morning dose will be divided as 2NPH: 1 Reg. Evening dose will be divided as 1NPH:1Reg insulin NPH 2019-0 Yes [id number] [facility] unit/mL 02-21 trimester- it y of injection 00:00: 0.7 [place] 00 u/kgSecond Medical trimester- Branch 0.8 u/kgThird trimester- 0.9 u/kg for total daily dose. Divide total dose 2/3 in morning and 1/3 with dinner. Morning dose will be divided as 2NPH: 1 Reg. Evening dose will be divided as 1NPH:1Reg insulin 2019- Yes [id number] [facility] regular 8-19 trimester- ity of human 100 00:00: 0.7 [place] unit/mL 00 u/kgSecond Medica l injection trimester- Bran ch 0.8 u/kgThird trimester- 0.9 u/kg for total daily dose. Divide total dose 2/3 in morning and 1/3 with dinner. Morning dose will be divided as 2NPH: 1 Reg. Evening dose will be divided as 1NPH:1Reg insulin NPH Yes [id number] [facility] unit/mL 02-21 trimester- it y of injection 00:00: 0.7 [place] 00 u/kgSecond Medical trimester- Branch 0.8 u/kgThird trimester- 0.9 u/kg for total daily dose. Divide total dose 2/3 in morning and 1/3 with dinner. Morning dose will be divided as 2NPH: 1 Reg. Evening dose will be divided as 1NPH:1Reg insulin 2018- Yes [id number] [facility] regular 8-19 trimester- ity of human 100 00:00: 0.7 [place] unit/mL 00 u/kgSecond Medica l injection trimester- Bran ch 0.8 u/kgThird trimester- 0.9 u/kg for total daily dose. Divide total dose 2/3 in morning and 1/3 with dinner. Morning dose will be divided as 2NPH: 1 Reg. Evening dose will be divided as 1NPH:1Reg insulin NPH Yes [id number] [facility] unit/mL - trimester- it y of injection 00:00: 0.7 [place] 00 u/kgSecond Medical trimester- Branch 0.8 u/kgThird trimester- 0.9 u/kg for total daily dose. Divide total dose 2/3 in morning and 1/3 with dinner. Morning dose will be divided as 2NPH: 1 Reg. Evening dose will be divided as 1NPH:1Reg insulin 2019- Yes [id number] [facility] regular -19 trimester- ity of human 100 00:00: 0.7 [place] unit/mL 00 u/kgSecond Medica l injection trimester- Bran ch 0.8 u/kgThird trimester- 0.9 u/kg for total daily dose. Divide total dose 2/3 in morning and 1/3 with dinner. Morning dose will be divided as 2NPH: 1 Reg. Evening dose will be divided as 1NPH:1Reg insulin NPH Yes [id number] [facility] unit/mL 02-21 trimester- it y of injection 00:00: 0.7 [place] 00 u/kgSecond Medical trimester- Branch 0.8 u/kgThird trimester- 0.9 u/kg for total daily dose. Divide total dose 2/3 in morning and 1/3 with dinner. Morning dose will be divided as 2NPH: 1 Reg. Evening dose will be divided as 1NPH:1Reg insulin Yes [id number] [facility] regular - trimester- ity of human 100 00:00: 0.7 [place] unit/mL 00 u/kgSecond Medica l injection trimester- Bran ch 0.8 u/kgThird trimester- 0.9 u/kg for total daily dose. Divide total dose 2/3 in morning and 1/3 with dinner. Morning dose will be divided as 2NPH: 1 Reg. Evening dose will be divided as 1NPH:1Reg insulin NPH Yes [id number] [facility] unit/mL 02-21 trimester- it y of injection 00:00: 0.7 [place] 00 u/kgSecond Medical trimester- Branch 0.8 u/kgThird trimester- 0.9 u/kg for total daily dose. Divide total dose 2/3 in morning and 1/3 with dinner. Morning dose will be divided as 2NPH: 1 Reg. Evening dose will be divided as 1NPH:1Reg insulin 2018- Yes [id number] [facility] regular -19 trimester- ity of human 100 00:00: 0.7 [place] unit/mL 00 u/kgSecond Medica l injection trimester- Bran ch 0.8 u/kgThird trimester- 0.9 u/kg for total daily dose. Divide total dose 2/3 in morning and 1/3 with dinner. Morning dose will be divided as 2NPH: 1 Reg. Evening dose will be divided as 1NPH:1Reg insulin NPH 2018-0 Yes [id number] [facility] unit/mL 02-21 trimester- it y of injection 00:00: 0.7 [place] 00 u/kgSecond Medical trimester- Branch 0.8 u/kgThird trimester- 0.9 u/kg for total daily dose. Divide total dose 2/3 in morning and 1/3 with dinner. Morning dose will be divided as 2NPH: 1 Reg. Evening dose will be divided as 1NPH:1Reg insulin 2019-0 Yes [id number] [facility] regular 8- trimester- ity of human 100 00:00: 0.7 [place] unit/mL 00 u/kgSecond Medica l injection trimester- Bran ch 0.8 u/kgThird trimester- 0.9 u/kg for total daily dose. Divide total dose 2/3 in morning and 1/3 with dinner. Morning dose will be divided as 2NPH: 1 Reg. Evening dose will be divided as 1NPH:1Reg insulin NPH 2018- Yes [id number] [facility] 100 unit/mL 02-21 trimester- it y of injection 00:00: 0.7 [place] 00 u/kgSecond Medical trimester- Branch 0.8 u/kgThird trimester- 0.9 u/kg for total daily dose. Divide total dose 2/3 in morning and 1/3 with dinner. Morning dose will be divided as 2NPH: 1 Reg. Evening dose will be divided as 1NPH:1Reg insulin 2019-0 Yes [id number] [facility] 00:00: 0.7 [place] unit/mL 00 u/kgSecond Medica l injection trimester- Bran ch 0.8 u/kgThird trimester- 0.9 u/kg for total daily dose. Divide total dose 2/3 in morning and 1/3 with dinner. Morning dose will be divided as 2NPH: 1 Reg. Evening dose will be divided as 1NPH:1Reg insulin NPH 2018- Yes [id number] [facility] unit/mL 02-21 trimester- it y of injection 00:00: 0.7 [place] 00 u/kgSecond Medical trimester- Branch 0.8 u/kgThird trimester- 0.9 u/kg for total daily dose. Divide total dose 2/3 in morning and 1/3 with dinner. Morning dose will be divided as 2NPH: 1 Reg. Evening dose will be divided as 1NPH:1Reg insulin 2019- Yes [id number] [facility] regular 8-19 trimester- ity of human 100 00:00: 0.7 [place] unit/mL 00 u/kgSecond Medica l injection trimester- Bran ch 0.8 u/kgThird trimester- 0.9 u/kg for total daily dose. Divide total dose 2/3 in morning and 1/3 with dinner. Morning dose will be divided as 2NPH: 1 Reg. Evening dose will be divided as 1NPH:1Reg insulin NPH Yes [id number] [facility] unit/mL 02-21 trimester- it y of injection 00:00: 0.7 [place] 00 u/kgSecond Medical trimester- Branch 0.8 u/kgThird trimester- 0.9 u/kg for total daily dose. Divide total dose 2/3 in morning and 1/3 with dinner. Morning dose will be divided as 2NPH: 1 Reg. Evening dose will be divided as 1NPH:1Reg insulin 2018- Yes [id number] [facility] regular 8-19 trimester- ity of human 100 00:00: 0.7 [place] unit/mL 00 u/kgSecond Medica l injection trimester- Bran ch 0.8 u/kgThird trimester- 0.9 u/kg for total daily dose. Divide total dose 2/3 in morning and 1/3 with dinner. Morning dose will be divided as 2NPH: 1 Reg. Evening dose will be divided as 1NPH:1Reg insulin NPH Yes [id number] [facility] unit/mL 8- trimester- it y of injection 00:00: 0.7 [place] 00 u/kgSecond Medical trimester- Branch 0.8 u/kgThird trimester- 0.9 u/kg for total daily dose. Divide total dose 2/3 in morning and 1/3 with dinner. Morning dose will be divided as 2NPH: 1 Reg. Evening dose will be divided as 1NPH:1Reg insulin 2019- Yes [id number] [facility] regular - trimester- ity of human 100 00:00: 0.7 [place] unit/mL 00 u/kgSecond Medica l injection trimester- Bran ch 0.8 u/kgThird trimester- 0.9 u/kg for total daily dose. Divide total dose 2/3 in morning and 1/3 with dinner. Morning dose will be divided as 2NPH: 1 Reg. Evening dose will be divided as 1NPH:1Reg insulin NPH Yes [id number] [facility] 100 unit/mL 02-21 trimester- it y of injection 00:00: 0.7 [place] 00 u/kgSecond Medical trimester- Branch 0.8 u/kgThird trimester- 0.9 u/kg for total daily dose. Divide total dose 2/3 in morning and 1/3 with dinner. Morning dose will be divided as 2NPH: 1 Reg. Evening dose will be divided as 1NPH:1Reg insulin Yes [id number] [facility] regular - trimester- ity of human 100 00:00: 0.7 [place] unit/mL 00 u/kgSecond Medica l injection trimester- Bran ch 0.8 u/kgThird trimester- 0.9 u/kg for total daily dose. Divide total dose 2/3 in morning and 1/3 with dinner. Morning dose will be divided as 2NPH: 1 Reg. Evening dose will be divided as 1NPH:1Reg insulin NPH 2019- No [id number] [facility] unit/mL 02-21 trimester- i ty of injection 00:00: 00:00 0.7 [place] 00 :00 u/kgSecond Medical trimester- Branch 0.8 u/kgThird trimester- 0.9 u/kg for total daily dose. Divide total dose 2/3 in morning and 1/3 with dinner. Morning dose will be divided as 2NPH: 1 Reg. Evening dose will be divided as 1NPH:1Reg insulin 2019- No [id number] [facility] regular 02-21 trimester- ity o f human 100 00:00: 00:00 0.7 [place] unit/mL 00 :00 u/kgSecond Medica l injection trimester- Bran ch 0.8 u/kgThird trimester- 0.9 u/kg for total daily dose. Divide total dose 2/3 in morning and 1/3 with dinner. Morning dose will be divided as 2NPH: 1 Reg. Evening dose will be divided as 1NPH:1Reg Insulin Yes [id number] 40U inject 40 [facility] Glargine 8-16 Units ity of (LANTUS 00:00: under the [place] SOLOSTAR 00 skin every Medic al U-100 morning. Branch INSULIN) 100 unit/mL (3 mL) injection insulin Yes [id number] 15U inject 15 [facility] aspart 8-16 Units ity of U-100 00:00: under the [place] (NOVOLOG 00 skin 3 Medical FLEXPEN (three) Branch U-100 times INSULIN) daily 100 unit/mL before (3 mL) meals. injection metformin Yes [id number] 1000mg Take 2 [facility] ER 500 mg 8-16 tablets by ity of 24 hr 00:00: mouth [place] tablet 00 daily with Medical breakfast. Branch Insulin Yes [id number] 40U inject 40 [facility] Glargine 8-16 Units ity of (LANTUS 00:00: under the [place] SOLOSTAR 00 skin every Medic al U-100 morning. Branch INSULIN) 100 unit/mL (3 mL) injection insulin Yes [id number] 15U inject 15 [facility] aspart 8-16 Units ity of U-100 00:00: under the [place] (NOVOLOG 00 skin 3 Medical FLEXPEN (three) Branch U-100 times INSULIN) daily 100 unit/mL before (3 mL) meals. injection metformin Yes [id number] 1000mg Take 2 [facility] ER 500 mg 8-16 tablets by ity of 24 hr 00:00: mouth [place] tablet 00 daily with Medical breakfast. Branch Insulin Yes [id number] 40U inject 40 [facility] Glargine 8-16 Units ity of (LANTUS 00:00: under the [place] SOLOSTAR 00 skin every Medic al U-100 morning. Branch INSULIN) 100 unit/mL (3 mL) injection insulin Yes [id number] 15U inject 15 [facility] aspart 8-16 Units ity of U-100 00:00: under the [place] (NOVOLOG 00 skin 3 Medical FLEXPEN (three) Branch U-100 times INSULIN) daily 100 unit/mL before (3 mL) meals. injection metformin 2018-0 Yes [id number] 1000mg Take 2 [facility] ER 500 mg 8-16 tablets by ity of 24 hr 00:00: mouth [place] tablet 00 daily with Medical breakfast. Branch Insulin 0 Yes [id number] 40U inject 40 [facility] Glargine 8-16 Units ity of (LANTUS 00:00: under the [place] SOLOSTAR 00 skin every Medic al U-100 morning. Branch INSULIN) 100 unit/mL (3 mL) injection insulin 0 Yes [id number] 15U inject 15 [facility] aspart 8-16 Units ity of U-100 00:00: under the [place] (NOVOLOG 00 skin 3 Medical FLEXPEN (three) Branch U-100 times INSULIN) daily 100 unit/mL before (3 mL) meals. injection metformin 0 Yes [id number] 1000mg Take 2 [facility] ER 500 mg 8-16 tablets by ity of 24 hr 00:00: mouth [place] tablet 00 daily with Medical breakfast. Branch Insulin Yes [id number] 40U inject 40 [facility] Glargine 8-16 Units ity of (LANTUS 00:00: under the [place] SOLOSTAR 00 skin every Medic al U-100 morning. Branch INSULIN) 100 unit/mL (3 mL) injection insulin Yes [id number] 15U inject 15 [facility] aspart 8-16 Units ity of U-100 00:00: under the [place] (NOVOLOG 00 skin 3 Medical FLEXPEN (three) Branch U-100 times INSULIN) daily 100 unit/mL before (3 mL) meals. injection metformin 2018-0 Yes [id number] 1000mg Take 2 [facility] ER 500 mg 8-16 tablets by ity of 24 hr 00:00: mouth [place] tablet 00 daily with Medical breakfast. Branch Insulin 0 Yes [id number] 40U inject 40 [facility] Glargine 8-16 Units ity of (LANTUS 00:00: under the [place] SOLOSTAR 00 skin every Medic al U-100 morning. Branch INSULIN) 100 unit/mL (3 mL) injection insulin 0 Yes [id number] 15U inject 15 [facility] aspart 8-16 Units ity of U-100 00:00: under the [place] (NOVOLOG 00 skin 3 Medical FLEXPEN (three) Branch U-100 times INSULIN) daily 100 unit/mL before (3 mL) meals. injection metformin 0 Yes [id number] 1000mg Take 2 [facility] ER 500 mg 8-16 tablets by ity of 24 hr 00:00: mouth [place] tablet 00 daily with Medical breakfast. Branch Insulin 0 Yes [id number] 40U inject 40 [facility] Glargine 8-16 Units ity of (LANTUS 00:00: under the [place] SOLOSTAR 00 skin every Medic al U-100 morning. Branch INSULIN) 100 unit/mL (3 mL) injection insulin Yes [id number] 15U inject 15 [facility] aspart 8-16 Units ity of U-100 00:00: under the [place] (NOVOLOG 00 skin 3 Medical FLEXPEN (three) Branch U-100 times INSULIN) daily 100 unit/mL before (3 mL) meals. injection metformin Yes [id number] 1000mg Take 2 [facility] ER 500 mg 8-16 tablets by ity of 24 hr 00:00: mouth [place] tablet 00 daily with Medical breakfast. Branch Insulin Yes [id number] 40U inject 40 [facility] Glargine 8-16 Units ity of (LANTUS 00:00: under the [place] SOLOSTAR 00 skin every Medic al U-100 morning. Branch INSULIN) 100 unit/mL (3 mL) injection insulin Yes [id number] 15U inject 15 [facility] aspart 8-16 Units ity of U-100 00:00: under the [place] (NOVOLOG 00 skin 3 Medical FLEXPEN (three) Branch U-100 times INSULIN) daily 100 unit/mL before (3 mL) meals. injection metformin 0 Yes [id number] 1000mg Take 2 [facility] ER 500 mg 8-16 tablets by ity of 24 hr 00:00: mouth [place] tablet 00 daily with Medical breakfast. Branch Insulin Yes [id number] 40U inject 40 [facility] Glargine 8-16 Units ity of (LANTUS 00:00: under the [place] SOLOSTAR 00 skin every Medic al U-100 morning. Branch INSULIN) 100 unit/mL (3 mL) injection insulin 0 Yes [id number] 15U inject 15 [facility] aspart 8-16 Units ity of U-100 00:00: under the [place] (NOVOLOG 00 skin 3 Medical FLEXPEN (three) Branch U-100 times INSULIN) daily 100 unit/mL before (3 mL) meals. injection metformin Yes [id number] 1000mg Take 2 [facility] ER 500 mg 8-16 tablets by ity of 24 hr 00:00: mouth [place] tablet 00 daily with Medical breakfast. Branch Insulin Yes [id number] 40U inject 40 [facility] Glargine 8-16 Units ity of (LANTUS 00:00: under the [place] SOLOSTAR 00 skin every Medic al U-100 morning. Branch INSULIN) 100 unit/mL (3 mL) injection insulin Yes [id number] 15U inject 15 [facility] aspart 8-16 Units ity of U-100 00:00: under the [place] (NOVOLOG 00 skin 3 Medical FLEXPEN (three) Branch U-100 times INSULIN) daily 100 unit/mL before (3 mL) meals. injection metformin Yes [id number] 1000mg Take 2 [facility] ER 500 mg 8-16 tablets by ity of 24 hr 00:00: mouth [place] tablet 00 daily with Medical breakfast. Branch Insulin Yes [id number] 40U inject 40 [facility] Glargine 8-16 Units ity of (LANTUS 00:00: under the [place] SOLOSTAR 00 skin every Medic al U-100 morning. Branch INSULIN) 100 unit/mL (3 mL) injection insulin Yes [id number] 15U inject 15 [facility] aspart 8-16 Units ity of U-100 00:00: under the [place] (NOVOLOG 00 skin 3 Medical FLEXPEN (three) Branch U-100 times INSULIN) daily 100 unit/mL before (3 mL) meals. injection metformin Yes [id number] 1000mg Take 2 [facility] ER 500 mg 8-16 tablets by ity of 24 hr 00:00: mouth [place] tablet 00 daily with Medical breakfast. Branch Insulin Yes [id number] 40U inject 40 [facility] Glargine 8-16 Units ity of (LANTUS 00:00: under the [place] SOLOSTAR 00 skin every Medic al U-100 morning. Branch INSULIN) 100 unit/mL (3 mL) injection insulin 0 Yes [id number] 15U inject 15 [facility] aspart 8-16 Units ity of U-100 00:00: under the [place] (NOVOLOG 00 skin 3 Medical FLEXPEN (three) Branch U-100 times INSULIN) daily 100 unit/mL before (3 mL) meals. injection metformin Yes [id number] 1000mg Take 2 [facility] ER 500 mg 8-16 tablets by ity of 24 hr 00:00: mouth [place] tablet 00 daily with Medical breakfast. Branch Insulin Yes [id number] 40U inject 40 [facility] Glargine 8-16 Units ity of (LANTUS 00:00: under the [place] SOLOSTAR 00 skin every Medic al U-100 morning. Branch INSULIN) 100 unit/mL (3 mL) injection insulin Yes [id number] 15U inject 15 [facility] aspart 8-16 Units ity of U-100 00:00: under the [place] (NOVOLOG 00 skin 3 Medical FLEXPEN (three) Branch U-100 times INSULIN) daily 100 unit/mL before (3 mL) meals. injection metformin Yes [id number] 1000mg Take 2 [facility] ER 500 mg 8-16 tablets by ity of 24 hr 00:00: mouth [place] tablet 00 daily with Medical breakfast. Branch Insulin Yes [id number] 40U inject 40 [facility] Glargine 8-16 Units ity of (LANTUS 00:00: under the [place] SOLOSTAR 00 skin every Medic al U-100 morning. Branch INSULIN) 100 unit/mL (3 mL) injection insulin Yes [id number] 15U inject 15 [facility] aspart 8-16 Units ity of U-100 00:00: under the [place] (NOVOLOG 00 skin 3 Medical FLEXPEN (three) Branch U-100 times INSULIN) daily 100 unit/mL before (3 mL) meals. injection metformin Yes [id number] 1000mg Take 2 [facility] ER 500 mg 8-16 tablets by ity of 24 hr 00:00: mouth [place] tablet 00 daily with Medical breakfast. Branch Insulin Yes [id number] 40U inject 40 [facility] Glargine 8-16 Units ity of (LANTUS 00:00: under the [place] SOLOSTAR 00 skin every Medic al U-100 morning. Branch INSULIN) 100 unit/mL (3 mL) injection insulin Yes [id number] 15U inject 15 [facility] aspart 8-16 Units ity of U-100 00:00: under the [place] (NOVOLOG 00 skin 3 Medical FLEXPEN (three) Branch U-100 times INSULIN) daily 100 unit/mL before (3 mL) meals. injection metformin Yes [id number] 1000mg Take 2 [facility] ER 500 mg 8-16 tablets by ity of 24 hr 00:00: mouth [place] tablet 00 daily with Medical breakfast. Branch Insulin Yes [id number] 40U inject 40 [facility] Glargine 8-16 Units ity of (LANTUS 00:00: under the [place] SOLOSTAR 00 skin every Medic al U-100 morning. Branch INSULIN) 100 unit/mL (3 mL) injection insulin Yes [id number] 15U inject 15 [facility] aspart 8-16 Units ity of U-100 00:00: under the [place] (NOVOLOG 00 skin 3 Medical FLEXPEN (three) Branch U-100 times INSULIN) daily 100 unit/mL before (3 mL) meals. injection metformin Yes [id number] 1000mg Take 2 [facility] ER 500 mg 8-16 tablets by ity of 24 hr 00:00: mouth [place] tablet 00 daily with Medical breakfast. Branch Insulin Yes [id number] 40U inject 40 [facility] Glargine 8-16 Units ity of (LANTUS 00:00: under the [place] SOLOSTAR 00 skin every Medic al U-100 morning. Branch INSULIN) 100 unit/mL (3 mL) injection insulin Yes [id number] 15U inject 15 [facility] aspart 8-16 Units ity of U-100 00:00: under the [place] (NOVOLOG 00 skin 3 Medical FLEXPEN (three) Branch U-100 times INSULIN) daily 100 unit/mL before (3 mL) meals. injection metformin Yes [id number] 1000mg Take 2 [facility] ER 500 mg 8-16 tablets by ity of 24 hr 00:00: mouth [place] tablet 00 daily with Medical breakfast. Branch Insulin Yes [id number] 40U inject 40 [facility] Glargine 8-16 Units ity of (LANTUS 00:00: under the [place] SOLOSTAR 00 skin every Medic al U-100 morning. Branch INSULIN) 100 unit/mL (3 mL) injection insulin Yes [id number] 15U inject 15 [facility] aspart 8-16 Units ity of U-100 00:00: under the [place] (NOVOLOG 00 skin 3 Medical FLEXPEN (three) Branch U-100 times INSULIN) daily 100 unit/mL before (3 mL) meals. injection metformin Yes [id number] 1000mg Take 2 [facility] ER 500 mg 8-16 tablets by ity of 24 hr 00:00: mouth [place] tablet 00 daily with Medical breakfast. Branch Insulin Yes [id number] 40U inject 40 Univers Glargine 8-16 Units ity of (LANTUS 00:00: under the [place] SOLOSTAR 00 skin every Medic al U-100 morning. Branch INSULIN) 100 unit/mL (3 mL) injection insulin Yes [id number] 15U inject 15 [facility] aspart 8-16 Units ity of U-100 00:00: under the [place] (NOVOLOG 00 skin 3 Medical FLEXPEN (three) Branch U-100 times INSULIN) daily 100 unit/mL before (3 mL) meals. injection metformin Yes [id number] 1000mg Take 2 [facility] ER 500 mg 8-16 tablets by ity of 24 hr 00:00: mouth [place] tablet 00 daily with Medical breakfast. Branch Insulin Yes [id number] 40U inject 40 [facility] Glargine 8-16 Units ity of (LANTUS 00:00: under the [place] SOLOSTAR 00 skin every Medic al U-100 morning. Branch INSULIN) 100 unit/mL (3 mL) injection insulin Yes [id number] 15U inject 15 [facility] aspart 8-16 Units ity of U-100 00:00: under the [place] (NOVOLOG 00 skin 3 Medical FLEXPEN (three) Branch U-100 times INSULIN) daily 100 unit/mL before (3 mL) meals. injection metformin Yes [id number] 1000mg Take 2 [facility] ER 500 mg 8-16 tablets by ity of 24 hr 00:00: mouth [place] tablet 00 daily with Medical breakfast. Branch Insulin Yes [id number] 40U inject 40 [facility] Glargine 8-16 Units ity of (LANTUS 00:00: under the [place] SOLOSTAR 00 skin every Medic al U-100 morning. Branch INSULIN) 100 unit/mL (3 mL) injection insulin Yes [id number] 15U inject 15 [facility] aspart 8-16 Units ity of U-100 00:00: under the [place] (NOVOLOG 00 skin 3 Medical FLEXPEN (three) Branch U-100 times INSULIN) daily 100 unit/mL before (3 mL) meals. injection metformin Yes [id number] 1000mg Take 2 [facility] ER 500 mg 8-16 tablets by ity of 24 hr 00:00: mouth [place] tablet 00 daily with Medical breakfast. Branch Insulin Yes [id number] 40U inject 40 [facility] Glargine 8-16 Units ity of (LANTUS 00:00: under the [place] SOLOSTAR 00 skin every Medic al U-100 morning. Branch INSULIN) 100 unit/mL (3 mL) injection insulin Yes [id number] 15U inject 15 [facility] aspart 8-16 Units ity of U-100 00:00: under the [place] (NOVOLOG 00 skin 3 Medical FLEXPEN (three) Branch U-100 times INSULIN) daily 100 unit/mL before (3 mL) meals. injection metformin Yes [id number] 1000mg Take 2 [facility] ER 500 mg 8-16 tablets by ity of 24 hr 00:00: mouth [place] tablet 00 daily with Medical breakfast. Branch Insulin Yes [id number] 40U inject 40 [facility] Glargine 8-16 Units ity of (LANTUS 00:00: under the [place] SOLOSTAR 00 skin every Medic al U-100 morning. Branch INSULIN) 100 unit/mL (3 mL) injection insulin Yes [id number] 15U inject 15 [facility] aspart 8-16 Units ity of U-100 00:00: under the [place] (NOVOLOG 00 skin 3 Medical FLEXPEN (three) Branch U-100 times INSULIN) daily 100 unit/mL before (3 mL) meals. injection metformin Yes [id number] 1000mg Take 2 [facility] ER 500 mg 8-16 tablets by ity of 24 hr 00:00: mouth [place] tablet 00 daily with Medical breakfast. Branch Insulin Yes [id number] 40U inject 40 [facility] Glargine 8-16 Units ity of (LANTUS 00:00: under the [place] SOLOSTAR 00 skin every Medic al U-100 morning. Branch INSULIN) 100 unit/mL (3 mL) injection insulin Yes [id number] 15U inject 15 [facility] aspart 8-16 Units ity of U-100 00:00: under the [place] (NOVOLOG 00 skin 3 Medical FLEXPEN (three) Branch U-100 times INSULIN) daily 100 unit/mL before (3 mL) meals. injection metformin Yes [id number] 1000mg Take 2 [facility] ER 500 mg 8-16 tablets by ity of 24 hr 00:00: mouth [place] tablet 00 daily with Medical breakfast. Branch Insulin 2020- No [id number] 40U inject 40 [facility] Glargine 02-18-24 Units ity of (LANTUS 00:00: 00:00 [place] SOLOST[place] 00 :00 skin every Medic al U-100 morning. Branch INSULIN) 100 unit/mL (3 mL) injection insulin 2019- No [id number] 15U inject 15 [facility] aspart 02-18-24 Units ity of U-100 00:00: 00:00 under the [place] (NOVOLOG 00 :00 skin 3 Medical FLEXPEN (three) Branch U-100 times INSULIN) daily 100 unit/mL before (3 mL) meals. injection metformin 2019- No [id number] 1000mg Take 2 [facility] ER 500 mg 02-18-24 tablets by ity of 24 hr 00:00: 00:00 mouth [place] tablet 00 :00 daily with Medical breakfast. Branch Nitrofurant 2018- No [id number] 100mg Take 1 [facility] oin&Nit. 02-17 capsule by ity of Macrocryst 00:00: 04:59 mouth 2 [place] (MACROBID) 00 :00 (two) Medical 100 mg times Branch capsule daily for 7 days. Nitrofurant 2019- No [id number] 100mg Take 1 [facility] oin&Nit. 02-17 capsule by ity of [place]ryst 00:00: 04:59 mouth 2 [place] (MACROBID) 00 :00 (two) Medical 100 mg times Branch capsule daily for 7 days. Nitrofurant 2019- No [id number] 100mg Take 1 [facility] oin&Nit. 02-17 capsule by ity of [place] 00:00: 04:59 mouth 2 [place] (MACROBID) 00 :00 (two) Medical 100 mg times Branch capsule daily for 7 days. Nitrofurant 2019- No [id number] 100mg Take 1 [facility] oin&Nit. 02-17 capsule by ity of [place]ryst 00:00: 04:59 mouth 2 [place] (MACROBID) 00 :00 (two) Medical 100 mg times Branch capsule daily for 7 days. Nitrofurant 2018- 2019- No [id number] 100mg Take 1 [facility] oin&Nit. 02-17 capsule by ity of [place] 00:00: 04:59 mouth 2 [place] (MACROBID) 00 :00 (two) Medical 100 mg times Branch capsule daily for 7 days. Nitrofurant 2018- 2019- No [id number] 100mg Take 1 [facility] oin&Nit. 02-17 capsule by ity of [place] 00:00: 04:59 mouth 2 [place] (MACROBID) 00 :00 (two) Medical 100 mg times Branch capsule daily for 7 days. Nitrofurant 2018- 2019- No [id number] 100mg Take 1 [facility] oin&Nit. 02-17 capsule by ity of [place] 00:00: 04:59 mouth 2 [place] (MACROBID) 00 :00 (two) Medical 100 mg times Branch capsule daily for 7 days. labetalol 2019-0 Yes [id number] 100mg Take 1 U nivers 100 mg 8-12 tablet by ity of tablet 00:00: mouth [place] 00 every 12 Medical (twelve) Branch hours. labetalol 2019-0 Yes [id number] 100mg Take 1 U nivers 100 mg 8-12 tablet by ity of tablet 00:00: mouth [place] 00 every 12 Medical (twelve) Branch hours. labetalol 2019-0 Yes [id number] 100mg Take 1 U nivers 100 mg 8-12 tablet by ity of tablet 00:00: mouth [place] 00 every 12 Medical (twelve) Branch hours. labetalol 2019-0 Yes [id number] 100mg Take 1 U nivers 100 mg 8-12 tablet by ity of tablet 00:00: mouth [place] 00 every 12 Medical (twelve) Branch hours. labetalol 2019-0 Yes [id number] 100mg Take 1 U nivers 100 mg 8-12 tablet by ity of tablet 00:00: mouth [place] 00 every 12 Medical (twelve) Branch hours. labetalol 2019-0 Yes [id number] 100mg Take 1 U nivers 100 mg 8-12 tablet by ity of tablet 00:00: mouth [place] 00 every 12 Medical (twelve) Branch hours. labetalol 2019-0 Yes [id number] 100mg Take 1 U nivers 100 mg 8-12 tablet by ity of tablet 00:00: mouth [place] 00 every 12 Medical (twelve) Branch hours. labetalol 2019-0 Yes [id number] 100mg Take 1 U nivers 100 mg 8-12 tablet by ity of tablet 00:00: mouth [place] 00 every 12 Medical (twelve) Branch hours. labetalol 2019-0 Yes [id number] 100mg Take 1 U nivers 100 mg 8-12 tablet by ity of tablet 00:00: mouth [place] 00 every 12 Medical (twelve) Branch hours. labetalol 2019-0 Yes [id number] 100mg Take 1 U nivers 100 mg 8-12 tablet by ity of tablet 00:00: mouth [place] 00 every 12 Medical (twelve) Branch hours. labetalol 2019-0 Yes [id number] 100mg Take 1 U nivers 100 mg 8-12 tablet by ity of tablet 00:00: mouth [place] 00 every 12 Medical (twelve) Branch hours. labetalol 2019-0 Yes [id number] 100mg Take 1 U nivers 100 mg 8-12 tablet by ity of tablet 00:00: mouth [place] 00 every 12 Medical (twelve) Branch hours. labetalol 2019-0 Yes [id number] 100mg Take 1 U nivers 100 mg 8-12 tablet by ity of tablet 00:00: mouth [place] 00 every 12 Medical (twelve) Branch hours. labetalol 2019-0 Yes [id number] 100mg Take 1 U nivers 100 mg 8-12 tablet by ity of tablet 00:00: mouth [place] 00 every 12 Medical (twelve) Branch hours. labetalol 2019-0 Yes [id number] 100mg Take 1 U nivers 100 mg 8-12 tablet by ity of tablet 00:00: mouth [place] 00 every 12 Medical (twelve) Branch hours. labetalol 2019-0 Yes [id number] 100mg Take 1 U nivers 100 mg 8-12 tablet by ity of tablet 00:00: mouth [place] 00 every 12 Medical (twelve) Branch hours. labetalol 2019-0 Yes [id number] 100mg Take 1 U nivers 100 mg 8-12 tablet by ity of tablet 00:00: mouth [place] 00 every 12 Medical (twelve) Branch hours. labetalol 2019-0 Yes [id number] 100mg Take 1 U nivers 100 mg 8-12 tablet by ity of tablet 00:00: mouth [place] 00 every 12 Medical (twelve) Branch hours. labetalol 2019-0 Yes [id number] 100mg Take 1 U nivers 100 mg 8-12 tablet by ity of tablet 00:00: mouth [place] 00 every 12 Medical (twelve) Branch hours. labetalol 2019-0 Yes [id number] 100mg Take 1 U nivers 100 mg 8-12 tablet by ity of tablet 00:00: mouth [place] 00 every 12 Medical (twelve) Branch hours. labetalol 2019-0 Yes [id number] 100mg Take 1 U nivers 100 mg 8-12 tablet by ity of tablet 00:00: mouth [place] 00 every 12 Medical (twelve) Branch hours. labetalol 2019-0 Yes [id number] 100mg Take 1 U nivers 100 mg 8-12 tablet by ity of tablet 00:00: mouth [place] 00 every 12 Medical (twelve) Branch hours. labetalol 2019-0 Yes [id number] 100mg Take 1 U nivers 100 mg 8-12 tablet by ity of tablet 00:00: mouth [place] 00 every 12 Medical (twelve) Branch hours. labetalol 2019-0 Yes [id number] 100mg Take 1 U nivers 100 mg 8-12 tablet by ity of tablet 00:00: mouth [place] 00 every 12 Medical (twelve) Branch hours. labetalol 2019-0 Yes [id number] 100mg Take 1 U nivers 100 mg 8-12 tablet by ity of tablet 00:00: mouth [place] 00 every 12 Medical (twelve) Branch hours. labetalol 2019-0 Yes [id number] 100mg Take 1 U nivers 100 mg 8-12 tablet by ity of tablet 00:00: mouth [place] 00 every 12 Medical (twelve) Branch hours. labetalol 2019-0 Yes [id number] 100mg Take 1 U nivers 100 mg 8-12 tablet by ity of tablet 00:00: mouth [place] 00 every 12 Medical (twelve) Branch hours. labetalol 2019-0 Yes [id number] 100mg Take 1 U nivers 100 mg 8-12 tablet by ity of tablet 00:00: mouth [place] 00 every 12 Medical (twelve) Branch hours. labetalol 2019-0 Yes [id number] 100mg Take 1 U nivers 100 mg 8-12 tablet by ity of tablet 00:00: mouth [place] 00 every 12 Medical (twelve) Branch hours. labetalol Yes [id number] 100mg Take 1 U nivers 100 mg 8-12 tablet by ity of tablet 00:00: mouth [place] 00 every 12 Medical (twelve) Branch hours. labetalol Yes [id number] 100mg Take 1 U nivers 100 mg 8-12 tablet by ity of tablet 00:00: mouth [place] 00 every 12 Medical (twelve) Branch hours. labetalol 2020- No [id number] 100mg Take 1 [facility] 100 mg 8-12 04-28 tablet by ity of tablet 00:00: 00:00 mouth [place] 00 :00 every 12 Medical (twelve) Branch hours. lisinopril Yes [id number] Take 1/2 Univers 20 mg 3-04 tablet ity of tablet 00:00: twice [place] 00 daily Medical Branch lisinopril 2019- No [id number] Take 1/2 Univers 20 mg 3-04 08-12 tablet ity of tablet 00:00: 00:00 twice [place] 00 :00 daily Medical Branch dulaglutide Yes [id number] .75mg inject Univers (TRULICITY) - 0.75 mg ity o f 0.75 mg/0.5 00:00: under the [facility] mL PnIj 00 skin Medical weekly. Branch dulaglutide 2019- No [id number] .75mg inject Univers (TRULICITY) 08-03-12 0.75 mg ity of 0.75 mg/0.5 00:00: 00:00 under the [place] mL PnIj 00 :00 skin Medical weekly. Branch ferrous Yes [id number] 325mg Take 1 Uni vers sulfate 325 -28 tablet by ity of mg (65 mg 00:00: mouth 3 [place] iron) 00 (three) Medical tablet times Branch daily with meals. ferrous 2019- No [id number] 325mg Take 1 Un vinod sulfate 325 -28 08-12 tablet by it y of mg (65 mg 00:00: 00:00 mouth 3 [place] iron) 00 :00 (three) Medical tablet times Branch daily with meals. loratadine Yes [id number] 10mg Take 1 [facility] 10 mg 1-25 tablet by ity of tablet 00:00: mouth [place] 00 daily. Medical Branch fluticasone Yes [id number] 2{spray Use 2 Univers 50 1-25 } Sprays in ity of mcg/actuati 00:00: each [place] on nasal 00 nostril Medical spray daily. Branch loratadine 2019- No [id number] 10mg Take 1 [facility] 10 mg 1-25 08-12 tablet by ity of tablet 00:00: 00:00 mouth [place] 00 :00 daily. Medical Branch fluticasone 2019- No [id number] 2{spray Use 2 Univers 50 1-25 08-12 } Sprays in ity of mcg/actuati 00:00: 00:00 each [place] on nasal 00 :00 nostril Medical spray daily. Branch BD INSULIN Yes USE Unive rs PEN NEEDLE 07-14 DIRECTED, ity of UF 31 gauge 00:00: TWICE [place] x 5/16" 00 DAILY AND Medical Ndle NEEDED Branch BD INSULIN 2018- No USE Univ ers PEN NEEDLE 07-1412 DIRECTED, ity of UF 31 gauge 00:00: 00:00 TWICE [place] x 5/16" 00 :00 DAILY AND Medical Ndle NEEDED Branch metformin 2017-07 Yes [id number] 1000mg Take 2 [facility] ER 500 mg 2-14 tablets by ity of 24 hr 00:00: mouth [place] tablet 00 daily with Medical breakfast. Branch Insulin 2017-07 Yes [id number] 40U inject 40 [facility] Glargine 2-14 Units ity of (LANTUS 00:00: under the [place] SOLOSTAR 00 skin every Medic al U-100 morning. Branch INSULIN) 100 unit/mL (3 mL) injection insulin 2017-07 Yes [id number] 15U inject 15 [facility] aspart 2-14 Units ity of U-100 00:00: under the [place] (NOVOLOG 00 skin 3 Medical FLEXPEN (three) Branch U-100 times INSULIN) daily 100 unit/mL before injection meals. metformin 2017-07 Yes [id number] 1000mg Take 2 [facility] ER 500 mg 2-14 tablets by ity of 24 hr 00:00: mouth [place] tablet 00 daily with Medical breakfast. Branch lancets 2017-07 Yes Use as Univers (ONE TOUCH 2-14 directed ity o f DELICA) 33 00:00: TID DX: [place] gauge Misc 00 E11.65 Medical Branch blood sugar 2017-07 Yes TID Use as Univers diagnostic 2-14 directed ity o f (ONETOUCH 00:00: Dx E11.65 [place] ULTRA BLUE 00 Medical TEST STRIP) Branch strip Blood-Gluco 2017-07 Yes Use as Univ ers se Meter 2-14 directed ity of (ONETOUCH 00:00: TID E11.65 [place] ULTRA2) Kit 00 Medical Branch Insulin 2017-07 Yes [id number] 40U inject 40 [facility] Glargine 2-14 Units ity of (LANTUS 00:00: under the [place] SOLOSTAR 00 skin every Medic al U-100 morning. Branch INSULIN) 100 unit/mL (3 mL) injection insulin 2017-07 Yes [id number] 15U inject 15 Univers aspart 2-14 Units ity of U-100 00:00: under the [place] (NOVOLOG 00 skin 3 Medical FLEXPEN (three) Branch U-100 times INSULIN) daily 100 unit/mL before injection meals. metformin 2017-07 Yes [id number] 1000mg Take 2 Univers ER 500 mg 2-14 tablets by ity of 24 hr 00:00: mouth [place] tablet 00 daily with Medical breakfast. Branch Insulin 2017-07 Yes [id number] 40U inject 40 Univers Glargine 2-14 Units ity of (LANTUS 00:00: under the [place] SOLOSTAR 00 skin every Medic al U-100 morning. Branch INSULIN) 100 unit/mL (3 mL) injection insulin 2017-07 Yes [id number] 15U inject 15 Univers aspart 2-14 Units ity of U-100 00:00: under the [place] (NOVOLOG 00 skin 3 Medical FLEXPEN (three) Branch U-100 times INSULIN) daily 100 unit/mL before injection meals. metformin 2017-07 Yes [id number] 1000mg Take 2 Univers ER 500 mg 2-14 tablets by ity of 24 hr 00:00: mouth [place] tablet 00 daily with Medical breakfast. Branch Insulin 2017-07 Yes [id number] 40U inject 40 [facility] Glargine 2-14 Units ity of (LANTUS 00:00: under the [place] SOLOSTAR 00 skin every Medic al U-100 morning. Branch INSULIN) 100 unit/mL (3 mL) injection insulin 2017-07 Yes [id number] 15U inject 15 Univers aspart 2-14 Units ity of U-100 00:00: under the [place] (NOVOLOG 00 skin 3 Medical FLEXPEN (three) Branch U-100 times INSULIN) daily 100 unit/mL before injection meals. metformin 2017-07 Yes [id number] 1000mg Take 2 Univers ER 500 mg 2-14 tablets by ity of 24 hr 00:00: mouth [place] tablet 00 daily with Medical breakfast. Branch Insulin 2017-07 Yes [id number] 40U inject 40 [facility] Glargine 2-14 Units ity of (LANTUS 00:00: under the [place] SOLOSTAR 00 skin every Medic al U-100 morning. Branch INSULIN) 100 unit/mL (3 mL) injection insulin 2017-07 Yes [id number] 15U inject 15 Univers aspart 2-14 Units ity of U-100 00:00: under the [place] (NOVOLOG 00 skin 3 Medical FLEXPEN (three) Branch U-100 times INSULIN) daily 100 unit/mL before injection meals. Insulin 2017-07- No [id number] 40U inject 40 Univers Glargine 2-14 08-16 Units ity of (LANTUS 00:00: 00:00 under the [facility] s SOLOSTAR 00 :00 skin every Medic al U-100 morning. Branch INSULIN) 100 unit/mL (3 mL) injection insulin 2017-07- No [id number] 15U inject 15 Univers aspart 2-14 08-16 Units ity of U-100 00:00: 00:00 under the [place] (NOVOLOG 00 :00 skin 3 Medical FLEXPEN (three) Branch U-100 times INSULIN) daily 100 unit/mL before injection meals. metformin 2017-07 2019- No [id number] 1000mg Take 2 Univers ER 500 mg 2-14 08-16 tablets by ity of 24 hr 00:00: 00:00 mouth [place] tablet 00 :00 daily with Medical breakfast. Branch lancets 2017-07- No Use as Univers (ONE TOUCH 08-19 directed ity of DELICA) 33 00:00: 00:00 TID DX: [place] gauge Misc 00 :00 E11.65 Medical [place] blood sugar 2017-07- No TID Use as Univers diagnostic 08-19 directed ity of (ONETOUCH 00:00: 00:00 Dx E11.65 [place] ULTRA BLUE 00 :00 Medical TEST STRIP) Branch strip Blood-Gluco 2017-07 2019- No Use as Uni vers se Meter 2-14 02-14 directed ity of (ONETOUCH 00:00: 00:00 TID E11.65 [place] ULTRA2) Kit 00 :00 Medical Branch SERTraline 2017- Yes [id number] Start 07/07 Univers (ZOLOFT) 50 02-26 4104 tab PO ity of mg tablet 00:00: daily x 1 [place] 00 week, then Medical increase Branch to 1 tab PO daily SERTraline 2019- No [id number] Start 07/07 Univers (ZOLOFT) 50 02-26 4104 tab PO ity o f mg tablet 00:00: 00:00 daily x 1 [place] 00 :00 week, then Medical increase Branch to 1 tab PO daily Immunizations Ordered Filled Immunization Date Status Comments Sour e Immunization Name Name PPD (TB) 2020-07-16 Completed University of 00:00:00 [facility] PPD (TB) 2020-07-09 Completed University of 00:00:00 [facility] DTAP 2017-12-01 Completed University of 00:00:00 [facility] DTAP 2017-12-01 Completed University of 00:00:00 [facility] DTAP 2017-12-01 Completed University of 00:00:00 [facility] DTAP 2017-12-01 Completed University of 00:00:00 [facility] DTAP 2017-12-01 Completed University of 00:00:00 [facility] DTAP 2017-12-01 Completed University of 00:00:00 [facility] DTAP 2017-12-01 Completed University of 00:00:00 [facility] DTAP 2017-12-01 Completed University of 00:00:00 [facility] DTAP 2017-12-01 Completed University of 00:00:00 [facility] DTAP 2017-12-01 Completed University of 00:00:00 [facility] DTAP 2017-12-01 Completed University of 00:00:00 [facility] DTAP 2017-12-01 Completed University of 00:00:00 [facility] DTAP 2017-12-01 Completed University of 00:00:00 [facility] DTAP 2017-12-01 Completed University of 00:00:00 [place] [facility] DTAP 2017-12-01 Completed University of 00:00:00 [place] [facility] DTAP 2017-12-01 Completed University of 00:00:00 [place] [facility] DTAP 2017-12-01 Completed University of 00:00:00 [place] [facility] DTAP 2017-12-01 Completed University of 00:00:00 [place] [facility] DTAP 2017-12-01 Completed University of 00:00:00 [place] [facility] DTAP 2017-12-01 Completed University of 00:00:00 [place] [facility] DTAP 2017-12-01 Completed University of 00:00:00 [place] [facility] DTAP 2017-12-01 Completed University of 00:00:00 [place] [facility] DTAP 2017-12-01 Completed University of 00:00:00 [place] [facility] DTAP 2017-12-01 Completed University of 00:00:00 [place] [facility] DTAP 2017-12-01 Completed University of 00:00:00 [place] [facility] DTAP 2017-12-01 Completed University of 00:00:00 [facility] Branch DTAP 2017-12-01 Completed University of 00:00:00 [place] [facility] DTAP 2017-12-01 Completed University of 00:00:00 [place] [facility] DTAP 2017-12-01 Completed University of 00:00:00 [place] [facility] DTAP 2017-12-01 Completed University of 00:00:00 [place] [facility] DTAP 2017-12-01 Completed University of 00:00:00 [facility] Branch DTAP 2017-12-01 Completed University of 00:00:00 [facility] Branch DTAP 2017-12-01 Completed University of 00:00:00 [place] [facility] DTAP 2017-12-01 Completed University of 00:00:00 [place] [facility] DTAP 2017-12-01 Completed University of 00:00:00 [place] [facility] DTAP 2017-12-01 Completed University of 00:00:00 [place] [facility] DTAP 2017-12-01 Completed University of 00:00:00 [place] [facility] DTAP 2017-12-01 Completed University of 00:00:00 [place] [facility] DTAP 2017-12-01 Completed University of 00:00:00 [place] [facility] DTAP 2017-12-01 Completed University of 00:00:00 [place] [facility] DTAP 2017-12-01 Completed University of 00:00:00 [place] [facility] DTAP 2017-12-01 Completed University of 00:00:00 [facility] DTAP 2017-12-01 Completed University of 00:00:00 [facility] DTAP 2017-12-01 Completed University of 00:00:00 [facility] DTAP 2017-12-01 Completed University of 00:00:00 [facility] DTAP 2017-12-01 Completed University of 00:00:00 [facility] DTAP 2017-12-01 Completed University of 00:00:00 [facility] DTAP 2017-12-01 Completed University of 00:00:00 [facility] DTAP 2017-12-01 Completed University of 00:00:00 [facility] DTAP 2017-12-01 Completed University of 00:00:00 [facility] DTAP 2017-12-01 Completed University of 00:00:00 [facility] DTAP 2017-12-01 Completed University of 00:00:00 [facility] DTAP 2017-12-01 Completed University of 00:00:00 [facility] DTAP 2017-12-01 Completed University of 00:00:00 [facility] DTAP 2017-12-01 Completed University of 00:00:00 [facility] DTAP 2017-12-01 Completed University of 00:00:00 [facility] DTAP 2017-12-01 Completed University of 00:00:00 [facility] DTAP 2017-12-01 Completed University of 00:00:00 [facility] DTAP 2017-12-01 Completed University of 00:00:00 [facility] DTAP 2017-12-01 Completed University of 00:00:00 [facility] DTAP 2017-12-01 Completed University of 00:00:00 [facility] DTAP 2017-12-01 Completed University of 00:00:00 [facility] DTAP 2017-12-01 Completed University of 00:00:00 [facility] DTAP 2017-12-01 Completed University of 00:00:00 [facility] DTAP 2017-12-01 Completed University of 00:00:00 [facility] DTAP 2017-12-01 Completed University of 00:00:00 [facility] DTAP 2017-12-01 Completed University of 00:00:00 [facility] Vital Signs Vital Name Observation Time Observation Value Comments Source Systolic blood 2020-03-29 21:38:00 132 mm[Hg] Univer sity of pressure [place] [facility] Diastolic blood 2020-03-29 21:38:00 92 mm[Hg] Unive rsity of pressure [place] [facility] [place] Heart rate 2020-03-29 21:11:00 84 /min Universi ty of [place] [facility] [place] Body temperature 2020-03-29 21:11:00 36.72 [place] Univ ersity of [place] [facility] Respiratory rate 2020-03-29 21:11:00 18 /min Univ ersity of [facility] Branch Body height 2020-03-29 21:11:00 165.1 cm Universi ty of [place] [facility] [place] Body weight 2020-03-29 21:11:00 68.04 kg Universi ty of [place] [facility] BMI 2020-03-29 21:11:00 24.96 kg/m2 Universi ty of [facility] Branch Systolic blood 2020-03-20 16:18:00 129 mm[Hg] Univer sity of pressure [facility] Branch Diastolic blood 2020-03-20 16:18:00 89 mm[Hg] Unive rsity of pressure [facility] Heart rate 2020-03-20 16:18:00 86 /min [facility]i ty of [place] [facility] [place] Body temperature 2020-03-20 16:08:00 36.83 [place] Univ ersity of [facility] Respiratory rate 2020-03-20 16:08:00 16 /min Univ ersity of [facility] Body height 2020-03-20 16:08:00 165.1 cm [facility]i [facility] of [place] [facility] [place] Body weight 2020-03-20 16:08:00 68.13 kg Universi ty of [place] [facility] BMI 2020-03-20 16:08:00 24.99 kg/m2 Universi ty of [facility] Systolic blood 2020-03-15 16:10:00 115 mm[Hg] Univer sity of pressure [place] [facility] Diastolic blood 2020-03-15 16:10:00 84 mm[Hg] Unive rsity of pressure [facility] Heart rate 2020-03-15 16:10:00 90 /min [facility]i ty of [facility] Oxygen saturation in 2020-03-15 16:10:00 98 /min University Arterial blood by [facility] Pulse oximetry Branch Respiratory rate 2020-03-15 15:55:00 18 /min Univ ersity of [facility] Body temperature 2020-03-15 14:45:00 36.06 Irma Univ ersity of [facility] Body height 2020-03-14 14:30:00 165.1 cm [facility] Body weight 2020-03-14 14:30:00 65.772 kg [facility] BMI 2020-03-14 14:30:00 24.13 kg/m2 [facility] Systolic blood 2020-03-05 22:00:00 140 mm[Hg] Univer sity of [facility] Diastolic blood 2020-03-05 22:00:00 95 mm[Hg] Unive rsity of [facility] Systolic blood 2020-03-05 20:47:00 141 mm[Hg] Univer sity of [facility] Diastolic blood 2020-03-05 20:47:00 100 mm[Hg] Unive rsity of pressure [facility] Branch Heart rate 2020-03-05 20:47:00 91 /min [facility] Body temperature 2020-03-05 20:47:00 37.06 Irma [facility] Respiratory rate 2020-03-05 20:47:00 16 /min [facility] Body height 2020-03-05 20:47:00 165.1 cm [facility] Body weight 2020-03-05 20:47:00 68.765 kg [facility] BMI 2020-03-05 20:47:00 25.23 kg/m2 [facility] Systolic blood 2020-02-21 21:56:00 134 mm[Hg] Univer sity of [facility] Diastolic blood 2020-02-21 21:56:00 76 mm[Hg] Unive rsity of [facility] Heart rate 2020-02-21 21:56:00 80 /min [facility] Respiratory rate 2020-02-21 21:56:00 16 /min [facility] Body height 2020-02-21 21:56:00 165.1 cm [facility] Body weight 2020-02-21 21:56:00 68.04 kg [facility] BMI 2020-02-21 21:56:00 24.96 kg/m2 [facility] Systolic blood 2020-02-14 21:15:00 127 mm[Hg] Univer sity of [facility] Diastolic blood 2020-02-14 21:15:00 80 mm[Hg] Unive rsity of [facility] Heart rate 2020-02-14 21:15:00 98 /min [facility] Body temperature 2020-02-14 21:15:00 36.94 Irma [facility] Respiratory rate 2020-02-14 21:15:00 18 /min [facility] Body height 2020-02-14 21:15:00 165.1 cm [facility] Body weight 2020-02-14 21:15:00 67.132 kg [facility] BMI 2020-02-14 21:15:00 24.63 kg/m2 [facility] Systolic blood 2020-02-06 16:47:00 151 mm[Hg] Univer [facility]ity of [facility] Diastolic blood 2020-02-06 16:47:00 99 mm[Hg] Unive rsity of [facility] Heart rate 2020-02-06 16:46:00 73 /min [facility] Body temperature 2020-02-06 16:46:00 36.83 Irma [facility] Respiratory rate 2020-02-06 16:46:00 18 /min [facility] Body height 2020-02-06 16:46:00 165.1 cm [facility] Body weight 2020-02-06 16:46:00 70.761 kg [facility] BMI 2020-02-06 16:46:00 25.96 kg/m2 [facility] Systolic blood 2019-11-02 20:21:00 130 mm[Hg] Univer [facility]ity of [facility] Diastolic blood 2019-11-02 20:21:00 79 mm[Hg] Unive rsity of [facility] Heart rate 2019-11-02 20:21:00 91 /min [facility] Body height 2019-11-02 20:21:00 165.1 cm [facility] Body weight 2019-11-02 20:21:00 65.772 kg [facility] BMI 2019-11-02 20:21:00 24.13 kg/m2 [facility] Systolic blood 2019-08-31 20:05:00 129 mm[Hg] Univer [facility]ity of [facility] Diastolic blood 2019-08-31 20:05:00 79 mm[Hg] Unive rsity of [facility] Heart rate 2019-08-31 20:05:00 87 /min [facility] Respiratory rate 2019-08-31 20:05:00 22 /min [facility] Oxygen saturation in 2019-08-31 20:05:00 98 /min University of Arterial blood by [facility] sai Pulse oximetry Branch Body temperature 2019-08-31 19:38:00 36.44 Irma [facility] Body height 2019-08-31 16:06:00 165.1 cm [facility] Body weight 2019-08-31 16:06:00 67.6 kg [facility] BMI 2019-08-31 16:06:00 24.80 kg/m2 [facility] Systolic blood 2019-08-31 20:05:00 129 mm[Hg] Univer [facility]ity of [facility] Diastolic blood 2019-08-31 20:05:00 79 mm[Hg] Unive rsity of [facility] Heart rate 2019-08-31 20:05:00 87 /min [facility] Respiratory rate 2019-08-31 20:05:00 22 /min [facility] Oxygen saturation in 2019-08-31 20:05:00 98 /min University of Arterial blood by [facility] Pulse oximetry Branch Body temperature 2019-08-31 19:38:00 36.44 Irma [facility] Body height 2019-08-31 16:06:00 165.1 cm [facility] Body weight 2019-08-31 16:06:00 67.6 kg [facility] BMI 2019-08-31 16:06:00 24.80 kg/m2 [facility] Systolic blood 2019-08-30 21:37:00 160 mm[Hg] Univer [facility]ity of [facility] Diastolic blood 2019-08-30 21:37:00 90 mm[Hg] Unive rsity of [facility] Heart rate 2019-08-30 21:09:00 94 /min [facility] Body temperature 2019-08-30 21:09:00 36.72 Irma [facility] Body weight 2019-08-30 21:09:00 67.586 kg [facility] BMI 2019-08-30 21:09:00 24.79 kg/m2 [facility] Oxygen saturation in 2019-08-30 21:09:00 99 /min University [facility] by [facility] Pulse [facility]xim[facility] Systolic blood 2019-08-30 21:37:00 160 mm[Hg] Univer sity of [facility] Diastolic blood 2019-08-30 21:37:00 90 mm[Hg] Unive rsity of [facility] Heart rate 2019-08-30 21:09:00 94 /min [facility] Body temperature 2019-08-30 21:09:00 36.72 Irma [facility] Body weight 2019-08-30 21:09:00 67.586 kg [facility] BMI 2019-08-30 21:09:00 24.79 kg/m2 [facility] Oxygen saturation in 2019-08-30 21:09:00 99 /min University of Arterial blood by [facility] sai Pulse oximetry Branch Systolic blood 2019-08-24 22:06:00 148 mm[Hg] Univer sity of [facility] Diastolic blood 2019-08-24 22:06:00 92 mm[Hg] Unive rsity of [facility] Heart rate 2019-08-24 22:06:00 86 /min [facility] Body height 2019-08-24 22:03:00 165.1 cm [facility] Body weight 2019-08-24 22:03:00 83.598 kg [facility] BMI 2019-08-24 22:03:00 30.67 kg/m2 [facility] Oxygen saturation in 2019-08-24 22:03:00 100 /min University [facility] blood by [place] [facility] Pulse oximetry [facility] Systolic blood 2019-08-01 22:33:00 142 mm[Hg] Univer [facility]ity of [facility] Diastolic blood 2019-08-01 22:33:00 95 mm[Hg] Unive rsity of [facility] Heart rate 2019-08-01 22:32:00 72 /min Universi ty of [facility] Branch Body temperature 2019-08-01 22:32:00 36.22 Irma Univ ersity of [facility] Branch Respiratory rate 2019-08-01 22:32:00 16 /min [facility] Body height 2019-08-01 22:32:00 165.1 cm [facility] Body weight 2019-08-01 22:32:00 69.032 kg [facility] BMI 2019-08-01 22:32:00 25.33 kg/m2 [facility]i ty [facility] Systolic blood 2019-07-15 14:14:00 147 mm[Hg] Univer sity of pressure [facility] Branch Diastolic blood 2019-07-15 14:14:00 101 mm[Hg] Unive rsity of pressure [facility] Heart rate 2019-07-15 13:49:00 87 /min Universi ty of [facility] Body temperature 2019-07-15 13:49:00 36.61 Irma [facility] [place] [facility] [place] Body weight 2019-07-15 13:49:00 66.679 kg [facility] BMI 2019-07-15 13:49:00 24.46 kg/m2 [facility] ty [facility] Oxygen saturation in 2019-07-15 13:49:00 100 /min University of Arterial blood by [facility] Pulse oximetry Branch Systolic blood 2019-02-21 20:07:00 118 mm[Hg] Univer sity of [facility] Diastolic blood 2019-02-21 20:07:00 72 mm[Hg] Unive rsity of pressure [facility] Branch Body temperature 2019-02-21 20:07:00 36.89 Irma Univ ersity [facility] Branch Respiratory rate 2019-02-21 20:07:00 16 /min Univ ersity of [facility] Branch Body height 2019-02-21 20:07:00 165.1 cm [facility] Body weight 2019-02-21 20:07:00 71.442 kg [facility] BMI 2019-02-21 20:07:00 26.21 kg/m2 [facility]i ty [facility] Systolic blood 2019-02-14 14:34:00 124 mm[Hg] Univer sity of pressure [facility] Diastolic blood 2019-02-14 14:34:00 84 mm[Hg] [facility] Heart rate 2019-02-14 14:34:00 66 /min [facility] Body temperature 2019-02-14 14:34:00 36.83 Irma [facility] Res[facility] rate 2019-02-14 14:34:00 18 /min [facility] Body height 2019-02-14 14:34:00 165.1 cm [facility] Body weight 2019-02-14 14:34:00 71.725 kg [facility] BMI 2019-02-14 14:34:00 26.31 kg/m2 [facility] Procedures Procedure Date / Time Performing Clinician Source Performed CBC WITH DIFF 2020-03-15 12:33:00 Adum, Mae [place] o [facility] POCT GLUCOSE(AGE >30DAYS) 2020-03-15 12:22:00 AdumMae [facility] POCT TEST 2020-03-15 12:00:00 AdumMae [facility] ASSIGNMENT OF BENEFITS 2020-03-14 14:01:00 Doctor Hemant, [facility] MISC - PT PROVIDED 2020-03-05 05:01:00 Doctor Hemant [facility] DSU PRE-OP 2020-03-05 05:01:00 Doctor Marcos, [facility] ASSIGNMENT OF BENEFITS 2020-02-14 21:02:21 Doctor Hemant, [facility] POCT TEST 2020-02-14 00:00:00 Adum, Mae [facility] SCANNED LAB RESULTS 2020-02-06 05:01:00 Doctor Hemant [facility] POCT TEST 2020-02-06 00:00:00 Adum, Mae [facility] POCT GLUCOSE (AUTOMATED) 2019-08-31 19:55:00 Franko Vasquez [facility] CONSENT/REFUSAL FOR 2019-08-31 15:24:53 Doctor Unanima, [facility] DIAGNOSIS AND TREATMENT [facility] [place] ASSIGNMENT OF BENEFITS 2019-08-31 15:24:34 [facility] [place] DISCLOSURE AND CONSENT, 2019-08-24 06:01:00 Doctor Hemant[facility]GICAL [facility] PROCEDURES POCT TEST 2019-08-01 22:48:00 Mariana Woods [facility] US SHOULDER LEFT 2019-07-20 22:15:25 Chin Macedo [facility] [id number] CONSENT 2019-06-22 06:01:00 Doctor Hemant, [facility] Name Medical [place] AUTHORIZATION TO RELEASE 2019-03-14 05:01:00 Doctor Marcos [facility] PHI TO [facility] Name Medical [place] PATIENT QUESTIONNAIRE 2019-03-03 05:01:00 Doctor Marcos [facility] Name Medical [place] INSURANCE CORRESPONDENCE 2019-02-22 05:01:00 Doctor Marcos [facility] POCT URINALYSIS W/O 2019-02-21 20:12:00 Adebayo Trevino [facility] SPECIFIC [facility] INSURANCE CORRESPONDENCE 2019-02-18 05:01:[address] [facility] Name [facility] POCT URINALYSIS W/O 2019-02-14 14:23:00 Adebayo Trevino [facility] POCT TEST 2019-02-14 14:22:00 Adebayo Trevino [facility] ASSIGNMENT OF BENEFITS 2019-02-14 13:43:38 Doctor Unanima, Un [facility] Name Medical [place] Encounters Start End Encounter Admission Attending Care Care Encounter Source Date/Time Date/Time Type Type Clinicians Facility Department ID 2021-05-03 [facility] [id number] Univers 15:19:53 MAE newell [facility] 2019-10-14 Inpatient HCAPM LEO [id number] [facility] 22:47:00 [id number] [facility] 2020-09-26 2020-09-26 Outpatient Isma ZAMUDIO [facility] [id number] Univers 09:00:00 09:00:00 MAE [id number] ity [facility] 2020-09-26 2020-09-26 [facility] [id number] Univers 09:00:00 09:00:00 [facility] 2020-09-20 2020-09-20 Patient [facility] [id number] Univers 00:00:00 00:00:00 Outreach Abdoulaye PRIMARY [id number] [facility] [id number] [phone] [address] 2020-06-26 2020-06-26 [facility] [id number] Univers 16:00:00 16:00:00 DAVIDHAMPTON [id number] ity [facility] 2020-06-26 2020-06-26 [facility] [id number] Univers 16:00:00 16:00:00 [facility] 2020-04-18 2020-04-18 [facility] 1.2.840.114 [id number] Univers 00:00:00 00:00:00 Mae [place] [id number] ity [id number] [phone] Az dical nal [address] [place] [address] 2020-04-10 2020-04-10 Outpatient R [facility] [id number] Univers 08:00:00 08:00:00 ity [facility] 2020-03-30 2020-03-30 Outpatient R [facility] [id number] Univers 09:00:00 09:00:00 [id number] [facility] 2020-03-29 2020-03-29 Office [facility] 1.2.840.114 [id number] Univers 15:55:51 17:11:19 Visit Mae [place] [id number] ity [id number] [phone] Az dic[address] 2020-03-29 2020-03-29 Outpatient R AD, [facility] [id number] Univers 16:00:00 16:00:00 MAE [id number] ity [facility] 2020-03-29 2020-03-29 [facility] [id number] Univers 16:00:00 16:00:00 MAE ity [facility] 2020-03-20 2020-03-20 Office [facility] 1.2.840.114 [id number] Univers 10:32:08 11:36:50 Visit Mae [place] [id number] ity [id number] [phone] [address] 2020-03-20 2020-03-20 [facility] [id number] Univers 10:30:00 10:30:00 MAE [id number] ity [facility] 2020-03-20 2020-03-20 Outpatient R [facility] [id number] Univers 10:30:00 10:30:00 MAE ity [facility] 2020-03-19 2020-03-19 Telephone [facility] [id number] Univers 00:00:00 00:00:00 Mae Ambrosioton [id number] ity [id number] [id number] [address] 2020-03-15 2020-03-15 Hospital [facility] 1.2.840.114 [id number] Univers 06:54:00 11:28:00 Encounter Mae Rolando AmbrosioTimewell [id number] ity [id number] [phone] [place] [id number] Branch 2020-03-14 2020-03-14 Outpatient [facility] [id number] Univers 10:00:00 10:00:00 ity [facility] 2020-03-14 2020-03-14 [facility] [id number] Univers 10:00:00 10:00:00 MAE ity [facility] 2020-03-14 2020-03-14 Laboratory Only, Adc Test [facility] 1.2.840. 114 [id number] Univers 09:06:36 09:21:36 Only Adum, Mae [place] [id number] ity of [place] [id number] [id number] [facility] 353 [place] 2020-03-14 2020-03-14 Orders Doctor ALEYDA 1.2.840.114 [id number] Univers 00:00:00 00:00:00 Only Unassigned, GEORGE [id number] ity of [facility] [id number] Carl [phone] [facility] 009 [place] 2020-03-13 2020-03-13 Outpatient R [facility] [id number] Univers 09:00:00 09:00:00 ity of [facility] 2020-03-12 2020-03-12 Outpatient R [facility] [id number] Univers 13:00:00 13:00:00 ity of [facility] 2020-03-12 2020-03-12 Outpatient R JEFFERSON, [facility] [id number] Univers 13:00:00 13:00:00 BRITNI [facility] 2020-03-05 2020-03-05 Office [facility] 1.2.840.114 [id number] Univers 15:38:16 19:27:30 Visit Mae Tarango [id number] ity of [place] [id number] [facility] [phone] Az dical [address] 2020-03-05 2020-03-05 [facility] [id number] Univers 15:30:00 15:30:00 MAE [id number] ity [facility] 2020-03-05 2020-03-05 Outpatient [facility] [id number] Univers 15:30:00 15:30:00 MAE ity [facility] 2020-02-28 2020-02-28 Telemedici [facility] 1.2.840.114 [id number] Univers 10:20:52 12:17:09 ne Visit Mae Tar[place] [id number] it[id number] [phone] Az augustine nal [address] [facility] 2020-02-28 2020-02-28 Outpatient R ADUM, [facility] [id number] Univers 10:30:00 10:30:00 MAE [id number] ity [facility] 2020-02-28 2020-02-28 Outpatient R ADUM, [facility] [id number] Univers 10:30:00 10:30:00 MAE ity [facility] 2020-02-27 2020-02-27 [facility] [id number] Univers 00:00:00 00:00:00 Chato [place] [id number] i ty [id number] [phone] [facility] [address] [facility] 2020-02-21 2020-02-21 Office [facility] 1.2.840.114 [id number] Univers 16:46:06 17:29:41 Visit Chato [place] [id number] i ty [id number] [id number] [facility] [address] [facility] 2020-02-21 2020-02-21 Outpatient R GUNDERSON, [facility] [id number] Univers 16:30:00 16:30:00 CHATO [id number] ity [facility] 2020-02-21 2020-02-21 Outpatient R GUNDERSON, [facility] [id number] Univers 16:30:00 16:30:00 CHATO ity [facility] 2020-02-15 2020-02-15 Telephone Ad, [facility] [id number] Univers 00:00:00 00:00:00 Mae Tarango [id number] it[id number] [phone] [facility] 134 [facility] 2020-02-15 2020-02-15 Telephone [facility] [id number] Univers 00:00:00 00:00:00 Mae Rolando [place] [id number] it[place] of [place] [id number] [phone] Az dic[address] 2020-02-14 2020-02-14 Office Adum, [facility] 1.2.840.114 [id number] Univers 16:03:30 16:48:30 Visit Mae Ambrosioton [id number] it[place] [id number] [id number] [address] 2020-02-14 2020-02-14 Outpatient R ADUM, [facility] [id number] Univers 16:00:00 16:00:00 MAE [id number] ity of [facility] 2020-02-14 2020-02-14 Outpatient R ADUM, [facility] [id number] Univers 16:00:00 16:00:00 MAE ity [facility] 2020-02-14 2020-02-14 Orders Doctor ALEYDA 1.2.840.114 [id number] Univers 00:00:00 00:00:00 Only Unassigned, GEORGE [id number] ity of [place] [facility] [id number] Carl as [phone] [address] 2020-02-14 2020-02-14 Telephone Adum, [facility] 1.2.004.431 [id number] Univers 00:00:00 00:00:00 Mae Marshall [place] [id number] it[id number] [phone] [address] 2020-02-10 2020-02-10 Telephone Adum, [facility] [id number] Univers 00:00:00 00:00:00 Mae Marshall [place] [id number] ity [place] [id number] [phone] Az dical [address] 2020-02-08 2020-02-08 Outpatient R ADUM, [facility] [id number] Univers 11:00:00 11:00:00 MAE ity [facility] 2020-02-08 2020-02-08 Outpatient R ADUM, [facility] [id number] Univers 11:00:00 11:00:00 MAE ity [facility] 2020-02-06 2020-02-06 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 2, Adc Lab [facility] 1.2.840.114 [id number] Univers 13:15:41 13:30:41 Visit Chato Gunderson [id number] ity of [place] [id number] [phone] Az dical nal [address] [facility] 2020-02-06 2020-02-06 Office Adum, [facility] 1.2.840.114 [id number] Univers 11:09:42 12:42:59 Visit Mae Tarango [id number] ity of [place] [id number] [phone] Az dical nal [address] [facility] 2020-02-06 2020-02-06 Outpatient R ADUM, [facility] [id number] Univers 11:00:00 11:00:00 MAE ity [facility] 2020-02-06 2020-02-06 Outpatient R ADUM, [facility] [id number] Univers 11:00:00 11:00:00 MAE ity [facility] 2020-02-06 2020-02-06 Orders Doctor MAYNARD 1.2.840.114 [id number] Univers 00:00:00 00:00:00 Only Unassigned, GEORGE [id number] [facility] [id number] [place] as [phone] [address] 2020-01-31 2020-01-31 Outpatient R LEWIS [facility] [id number] Univers 15:30:00 15:30:00 CHATO [id number] ity [facility] 2020-01-31 2020-01-31 Outpatient R LEWIS [facility] [id number] Univers 15:30:00 15:30:00 CHATO ity [facility] 2020-01-30 2020-01-30 Outpatient R PARESH, [facility] [id number] Univers 13:00:00 13:00:00 HEYDI [id number] ity o f [facility] 2020-01-30 2020-01-30 Outpatient R PARESH, [facility] [id number] Univers 13:00:00 13:00:00 HEYDI ity o f [facility] 2020-01-30 2020-01-30 Telemedici Paresh, [facility] 1..840.114 [id number] Univers 08:06:31 08:26:31 ne Visit Heydi Ambrosioton [id number] it[place] of [id number] [phone] Az dicco nal [address] [place] [address] 2020-01-05 2020-01-05 Refill [facility] 1..840.114 [id number] Univers 00:00:00 00:00:00 Britni Ambrosioton [id number] ity [place] [id number] [phone] [address] 2020-01-02 2020-01-02 Outpatient R PARESH, [facility] [id number] Univers 10:40:00 10:40:00 HEYDI [id number] ity o f [facility] 2020-01-02 2020-01-02 Outpatient R PARESH, [facility] [id number] Univers 10:40:00 10:40:00 DAPHNESUSAN davidy o f [facility] 2019-12-27 2019-12-27 Refill [facility] 1..840.114 [id number] Univers 00:00:00 00:00:00 Heydi Ambrosioton [id number] ity of [id number] [phone] Az dic[address] 2019-12-27 2019-12-27 Telephone [place], [facility] 1..137.612 [id number] Univers 00:00:00 00:00:00 Britni Man [facility] [id number] i ty of [place] [id number] [place] as Professio [phone] Az dical nal [address] 2019-12-12 2019-12-12 Outpatient R [facility] [id number] Univers 15:00:00 15:00:00 ity [facility] 2019-11-02 2019-11-02 Laboratory Pc, Adc Echo Room 1 - [facility] 1 .2.840.114 [id number] Univers 15:13:43 16:13:43 Only Paresh Heydi Tarango 350.1.13.10 it[place] of [place] [phone] Az dical nal 9 [facility] 2019-11-02 2019-11-02 Outpatient R [facility] [id number] -[id number] Univers 15:00:00 15:00:00 [id number] ity [facility] 2019-11-02 2019-11-02 Outpatient R PARESH, [facility] [id number] Univers 15:00:00 15:00:00 HEYDI davidy o [facility] 2019-11-01 2019-11-01 Outpatient R PARESH, [facility] [id number] -[id number] Univers 10:20:00 10:20:00 HEYDI [id number] joanny o [facility] 2019-11-01 2019-11-01 Outpatient R PARESH, [facility] [id number] Univers 10:20:00 10:20:00 HEYDI davidy o [facility] 2019-11-01 2019-11-01 Telemedici Paresh, [facility] 1.2.840.114 [id number] Univers 08:00:08 08:20:08 ne Visit Heydi Tarango 350.1.13.10 it[place] [phone] Az dical nal 059 [facility] 2019-11-01 2019-11-01 Refill Doctor [facility] 1.2.840.114 [id number] Univers 00:00:00 00:00:00 Unassigned, Health 350.1.13.10 ity of [place] 4.2.7.2.686 [place] as Professio [phone] Az dical nal [address] [place] [address] [facility] 2019-10-26 2019-10-26 Outpatient R [facility] [id number] -20 Univers 14:00:00 14:00:00 [id number] ity [facility] 2019-10-14 2019-10-14 Nurse ALEYDA Dumas 1.2.840.114 [id number] Univers 00:00:00 00:00:00 Triage Mandy VAZQUEZ 350.1.13.10 it y of [facility] 4.2.7.2.686 [place] as [phone] [address] 2019-10-11 2019-10-11 Telephone [facility] [id number] 00:00:00 00:00:00 [place] 350.1.13.10 [place] 4.2.7.2.686 Professio [phone] [address] 2019-10-11 2019-10-11 Telephone [facility] [id number] Univers 00:00:00 00:00:00 [place] 350.1.13.10 i [place] [phone] Az dical [address] 2019-09-27 2019-09-27 Telemedici [facility] 1.2.840.114 [id number] 08:10:11 17:02:22 ne Visit Davidong [place] 350.1.13.10 [place] 4.2.7.2.686 Professio [phone] [address] 2019-09-27 2019-09-27 Telemedici [facility] 1.2.840.114 [id number] Univers 08:10:11 17:02:22 ne Visit Davidong [place] 350.1.13.10 it[place] of [place] [phone] Az dic[address] 2019-09-27 2019-09-27 Outpatient R LEWIS [facility] [id number] Univers 15:30:00 15:30:00 WENTONG ity [facility] 2019-09-26 2019-09-26 Outpatient R PARESH [facility] [id number] -20 Univers 14:00:00 14:00:00 HEYDI [id number] ity o f [facility] 2019-09-26 2019-09-26 [facility] [id number] Univers 14:00:00 14:00:00 HEYDI newell o abhijit [facility] 2019-09-26 2019-09-26 [facility] 1.2.840.114 [id number] 08:32:05 08:52:05 ne Visit Heydi Ambrosioton 350.1.13.10 [place] 4.2.7.2.686 Professio [phone] [address] 2019-09-26 2019-09-26 [facility] 1.2.840.114 [id number] Univers 08:32:05 08:52:05 ne Visit Heydi Tarango 350.1.13.10 ity of [place] [phone] Az dical [address] 2019-09-22 2019-09-22 Outpatient [facility] [id number] -20 Univers 10:45:00 10:45:00 FRANKO [id number] ity [facility] 2019-09-22 2019-09-22 Outpatient [facility] [id number] Univers 10:45:00 10:45:00 FRANKO ity [facility] 2019-08-31 2019-08-31 [facility] 1.2.840.114 [id number] Univers 09:24:00 14:30:00 Encounter [facility] 350.1.13.10 ity of [place] [phone] [address] ([facility]) 2019-08-31 2019-08-31 [facility] 1.2.840.114 [id number] 09:24:00 14:30:00 Encounter [facility] 350.1.13.10 [place] 4.2.7.2.686 [place] [phone] [place] [address] ([facility]) 2019-08-31 2019-08-31 Outpatient [facility] [id number] Univers 09:24:00 09:24:00 FRANKO ity [facility] 2019-08-31 2019-08-31 Orders Doctor ALEYDA 1.2.840.114 [id number] 00:00:00 00:00:00 Only Unassigned, GEORGE 350.1.13.10 [place] [facility] 4.2.7.2.686 [phone] [facility] 2019-08-31 2019-08-31 Orders Doctor ALEYDA 1.2.840.114 [id number] Univers 00:00:00 00:00:00 Only Unassigned, GEORGE 350.1.13.10 ity of [place] [facility] 4.2.7.2.686 Carl as [phone] [address] 2019-08-30 2019-08-30 [facility] 1.2.840.114 [id number] 15:01:42 15:39:34 Visit [facility] 350.1.13.10 [place] 4.2.7.2.686 Professio [phone] [place] [address] Office [facility] 2019-08-30 2019-08-30 [facility] 1.2.840.114 [id number] Univers 15:01:42 15:39:34 Visit [facility] 350.1.13.10 it y of [place] 4.2.7.2.686 [place] Professio [phone] Az dical [address] 2019-08-30 2019-08-30 [facility] [id number] -20 Univers 15:00:00 15:00:00 CHIN [id number] ity [facility] 2019-08-30 2019-08-30 Outpatient [facility] [id number] Univers 15:00:00 15:00:00 CHIN ity [facility] 2019-08-30 2019-08-30 [facility]phone [facility] 1.2.191.897 [id number] 00:00:00 00:00:00 Britni [facility] 350.1.13.10 [place] 4.2.7.2.686 Professio [phone] [address] 2019-08-30 2019-08-30 [facility] 1.2.087.216 [id number] Univers 00:00:00 00:00:00 Britni A Health 350.1.13.10 i ty of [place] 4.2.7.2.686 [place] as Professio [phone] Az dical nal [address] [place] [address] 2019-08-24 2019-08-24 Office Lonnie [facility] 1.2.840.114 [id number] Univers 15:56:42 22:49:34 Visit [facility] 350.1.13.10 it y of [place].2.[place] [phone] [address] Office Building 2019-08-24 2019-08-24 Outpatient R LONNIE [facility] [id number] Univers 16:00:00 16:47:25 FRANKO ity of [facility] 2019-08-24 2019-08-24 Orders Doctor ALEYDA 1.2.840.114 [id number] Univers 00:00:00 00:00:00 Only Unassigned, GEORGE 350.1.13.10 ity of [place] [facility] 4.2.7.2.686 Carl as [phone] [address] 2019-08-01 2019-08-01 Outpatient R MU [facility] [id number] Univers 16:00:00 17:07:26 MARIANA ity o f [facility] 2019-08-01 2019-08-01 Office [facility] [id number] Univers 15:56:42 17:07:26 Visit Mariana Julian [employer] 350.1.13.10 ity [facility] 4.2.7.2.686 [place] as MATERNAL [phone] Med ical & CHILD [address] [place] [address] 2019-07-15 2019-07-21 Office Chin Macedo [facility] 1.2.840.114 [id number] Univers 07:44:26 08:20:31 Visit Britni Andres [facility] 350.1.13.10 ity of [place] 4.2.7.2.686 [place] as Professio [phone] Az dical nal [address] [place] [address] 2019-07-20 2019-07-20 [facility] [id number] Univers 15:55:35 23:59:00 CHIN newell [facility] 2019-07-20 2019-07-20 [facility] 1.2.840.114 [id number] Univers 15:55:00 23:59:00 Encounter Chin Emelina 350.1.13.10 it[place] of [place] [phone] [address] 2019-07-15 2019-07-15 Outpatient [facility] [id number] Univers 07:40:00 08:16:42 BRITNI newell [facility] 2019-06-27 2019-06-27 Outpatient [facility] [id number] Univers 16:46:24 23:59:00 ADEBAYO newell [facility] 2019-06-22 2019-06-22 Orders Doctor MAYNARD 1.2.840.114 [id number] Univers 00:00:00 00:00:00 Only Unassigned, GEORGE 350.1.13.10 ity of [place] [facility] 4.2.7.2.686 Carl as [phone] [address] 2019-03-14 2019-03-14 Orders Doctor MAYNARD 1.2.840.114 [id number] Univers 00:00:00 00:00:00 Only Unassigned, GEORGE 350.1.13.10 ity of [place] [facility] 4.2.7.2.686 Carl as [phone] [address] 2019-03-03 2019-03-03 Orders Doctor MAYNARD 1.2.840.114 [id number] Univers 00:00:00 00:00:00 Only Unassigned, GEORGE 350.1.13.10 ity of [place] [facility] 4.2.7.2.686 [place] as [phone] [address] 2019-02-22 2019-02-22 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 114 [id number] Univers 13:51:15 14:06:15 Visit Mariana Woods [employer] 350.1.13. 10 ity of [facility] 4.2.7.2.686 [place] as MATERNAL [phone] [facility] ical & CHILD [address] [place] [address] 2019-02-22 2019-02-22 Will Gunderson [facility] 1.2.840.114 [id number] Univers 00:00:00 00:00:00 [facility] 350.1.13.10 i ty [place] [phone] [address] 2019-02-22 2019-02-22 Orders Doctor ALEYDA 1.2.840.114 [id number] Univers 00:00:00 00:00:00 Only Unassigned, GEORGE 350.1.13.10 ity of [place] [facility] 4.2.7.2.686 Carl as [phone] [address] 2019-02-21 2019-02-21 Routine Faculty, [facility] 1.2 .840.114 [id number] Univers 14:33:33 15:48:43 Kike Villafuerte [employer] 350.1.13. 10 ity of Visit REGIONAL 4.2.7.2.686 [place] as MATERNAL [phone] [facility] & CHILD [address] [place] [address] 2019-02-21 2019-02-21 Outpatient R CHRISTO [facility] [id number] Univers 14:30:00 15:48:43 KIKE newell [facility] 2019-02-18 2019-02-18 Will Gunderson [facility] 1.2.840.114 [id number] Univers 00:00:00 00:00:00 [facility] 350.1.13.10 i ty of [place] [phone] [address] 2019-02-18 2019-02-18 Orders Doctor ALEYDA 1.2.840.114 [id number] Univers 00:00:00 00:00:00 Only Unassigned, GEORGE 350.1.13.10 ity of [place] [facility] 4.2.7.2.686 Carl as [phone] [address] 2019-02-17 2019-02-17 Guy Trevino [facility] 1.2.840.114 [id number] Univers 00:00:00 00:00:00 Adebayo N [employer] 350.1.13.10 it y of [facility] 4.2.7.2.686 Carl as MATERNAL [phone] [facility] ical & CHILD [address] [place] [address] 2019-02-15 2019-02-15 Telephone [facility] 1.2.840.114 [id number] Univers 00:00:00 00:00:00 Adebayo N [employer] 350.1.13.10 it y of [facility] 4.2.7.2.686 Carl as MATERNAL [phone] [facility] ical & CHILD [address] [place] [address] 2019-02-15 2019-02-15 Telephone [facility] 1.2.369.197 [id number] Univers 00:00:00 00:00:00 Britni Man [employer] 350.1.13.10 i ty of [facility] 4.2.7.2.686 Carl as MATERNAL [phone] [facility] ical & CHILD [address] [place] [address] 2019-02-14 2019-02-14 Initial [facility] 1.2.179.581 [id number] Univers 09:18:18 10:28:57 Adebayo N [employer] 350.1.13.10 i ty of Visit [facility] 4.2.7.2.686 Carl as MATERNAL [phone] [facility] & [facility] [address] [place] [address] 2019-02-14 2019-02-14 Orders Doctor ALEYDA 1.2.840.114 [id number] Univers 00:00:00 00:00:00 Only Unassigned, GEORGE 350.1.13.10 ity of [place] [facility] 4.2.7.2.686 Carl as [phone] [address] 2018-09-26 2018-09-26 Emergency E MHBL MHBL [id number] MHBL 19:58:00 19:58:00 2016-12-19 2016-12-19 Outpatient [facility] [id number] 00:[facility] 00:00:00 Results Test Description Test Time Test Comments Results Result Comments Source CBC WITH DIFF 2020-03-15 12:40:00 Test Item Value Reference Range Interpretation Comme nts WBC (test code = 6690-2) See_Comment [A utomated message] The system which generated this result transmitted ref erence range: 4.30 - 11.10 10*3/?L . The reference range was not u sed to interpret this result as normal/abnormal. RBC (test code = 789-8) See_Comment [Au tomated message] The system which generated this result transmitted ref erence range: 3.93 - 5.25 10*6/?L. The reference range was not u sed to interpret this result as normal/abnormal. HGB (test code = 718-7) 12.3 g/dL 11.6-15 HCT (test code = 4544-3) 37.5 % 35.7-45.2 MCV (test code = 787-2) 84.1 fL 80.6-95.5 MCH (test code = 785-6) 27.6 pg 25.9-32.8 MCHC (test code = 786-4) 32.8 g/dL 31.6-35.1 RDW-SD (test code = 43.6 fL 39-49.9 22729-5) RDW-CV (test code = 14.4 % 12-15.5 788-0) PLT (test code = 777-3) See_Comment [Au tomated message] The system which generated this result transmitted ref erence range: 166 - 358 10*3/?L. The reference range was not u sed to interpret this result as normal/abnormal. MPV (test code = 87564-5) 10.8 fL 9.5-12.9 NRBC/100 WBC (test code = See_Comment [ Automated message] The system [id number]) which generated this result transmitted ref erence range: 0.0 - 10.0 /100 WBC s. The reference range was not u sed to interpret this result as normal/abnormal. NRBC x10^3 (test code = <0.01 See_Comment [Au tomated message] The system [id number]) which generated this result transmitted ref erence range: 10*3/?L. The re ference range was not used to int erpret this result as normal/abnor mal. GRAN MAT (NEUT) % (test 54.0 % code = 770-8) IMM GRAN % (test code = 0.70 % [id number]) LYMPH % (test code = 35.6 % 736-9) MONO % (test code = 8.4 % 5905-5) EOS % (test code = 713-8) 0.9 % BASO % (test code = 0.4 % 706-2) GRAN MAT x10^3(ANC) (test 3.08 10*3/uL 1.88-7.09 code = 8333459905) IMM GRAN x10^3 (test code 0.04 10*3/uL 0-0.06 = 6649354336) LYMPH x10^3 (test code = 2.03 10*3/uL 1.32-3.29 731-0) MONO x10^3 (test code = 0.48 10*3/uL 0.33-0.92 742-7) EOS x10^3 (test code = 0.05 10*3/uL 0.03-0.39 711-2) BASO x10^3 (test code = <0.03 0.01-0.07 704-7) [facility] [id number] 12:22:00 Test Item Value Reference Range Interpretation Comments POCT Glu (age>30days) (test code = 232 mg/dL 70-110 A 3342) Lab Interpretation (test code = Abnormal 09893-9) [facility] [id number] 12:00:00 Test Item Value Reference Range Interpretation Comments POCT PREG (test code = 1605) Negative On board controls acceptable with Yes C Line (test code = 3574) POCT PREG LOT # (test code = 3575) [id number] POCT PREG TEST DATE (test 2021 01 31 code = 3576) Lab Interpretation (test code = Normal 27696-5) [facility] [id number] 21:20:00 Test Item Value Reference Range Interpretation Comments POCT PREG (test code = 1605) Negative On board controls acceptable with C Yes Line (test code = 3574) POCT PREG LOT # (test code = 3575) POCT PREG TEST DATE (test code = 3576) [facility] [id number] 21:20:00 Test Item Value Reference Range Interpretation Comments POCT PREG (test code = 1605) Negative On board controls acceptable with C Yes Line (test code = 3574) POCT PREG LOT # (test code = 3575) POCT PREG TEST DATE (test code = 3576) [id number] 17:23:00 Test Item Value Reference Range Interpretation Comments POCT PREG (test code = 1605) Negative On board controls acceptable with C Yes Line (test code = 3574) POCT PREG LOT # (test code = 3575) POCT PREG TEST DATE (test code = 3576) [facility] BranchPOCT [id number] 17:23:00 Test Item Value Reference Range Interpretation Comments POCT PREG (test code = 1605) Negative On board controls acceptable with C Yes Line (test code = 3574) POCT PREG LOT # (test code = 3575) POCT PREG TEST DATE (test code = 3576) [facility] [id number] 12:55:00 Test Item Value Reference Range Interpretation Comments GLUCOSE BEDSIDE TESTING (test code 199 mg/dL 70-110 H = GLUBED) - CT C-SPINE W/O [id number] 09:49:00 Name: TR JAVED [facility] : 1975 Age/S: 44 / F [address] [address] [place] Unit #: [id number] Loc: [place] [address] Phys: Tiffanie Nayak MD Acct: [id number] Dis Date: Status: ADM IN PHONE #: [phone] Exam Date: 10/16/2019 0935 FAX #: Reason: LEFT VERA EXAMS: CPT: [id number] CT C-SPINE W/O CONT 12715 EXAM: - CTC-SPINE W/O CONT HISTORY: LEFT HEMIPARESIS Location code:C3 TECHNIQUE: Axial tomograms through the cervical spine were obtained without intravenous contrast. Sagittal and coronal reformatted images are provided. One or more of the following dose re duction techniques were used: Automated exposure control, adjustment of the mA and/or kVaccording to patient size, and/or utilization of iterative reconstruction technique. DLP: 617 mGy-cm. COMPARISON: None available time of interpretation. FINDINGS: There is mild straightening of the normal cervical lordosis, which may be positiona l or secondary to ligamentous spasm. Vertebral heights and sagittal alignment are maintained. No acute fracture or subluxation. There is a normal atlantoaxial interval. No locked orperched facet. The prevertebral soft tissues are within normal limits. The visualized soft tissues of the neck show no significant abnormalities. Minor Degenerative disc disease and facet arthropathy is present at multiple levels without retropulsion into the central canal. The visualized lung apices are clear. IMPRESSION: 1.No acute osseous abnormality with other findings as above. at 0949 Reported and signed by: Ct Francois M.D. CC: Tiffanie Nayak MD; Adrian Aleman MD Technologist:RT Austen(R)(CT) CTDI: DLP: Trnscb Date/Time:10/16/2019 (948) [email or web address] Orig Print D/T: S: 10/16/2019 (2411) PAGE 1 Signed Report GLUCOSE BEDSIDE [id number] 07:49:00 Test Item Value Reference Range Interpretation Comments GLUCOSE BEDSIDE TESTING (test code 182 mg/dL 70-110 H = GLUBED) CBC W/AUTO [id number] 04:52:00 Test Item Value Reference Range Interpretation Comments WHITE BLOOD CELL (test code = 4.5 K/mm3 3.5-11.0 N WBC) RED BLOOD CELL (test code = RBC) 4.12 M/mm3 4.70-6.10 L HEMOGLOBIN (test code = HGB) 9.2 G/DL 10.4-14.9 L HEMATOCRIT (test code = HCT) 31.8 % 31.5-44.1 N MEAN CELL VOLUME (test code = 77.2 Fl 84.5-98.6 L MCV) MEAN CELL HGB (test code = MCH) 22.3 pg 27.0-34.2 L MEAN CELL HGB CONCETRATION (test 28.9 G/DL 31.5-34.0 L code = MCHC) RED CELL DISTRIBUTION WIDTH (test 17.2 SD 11.5-14.5 H code = RDW) PLATELET COUNT (test code = PLT) 249.0 K/mm3 150-450 N MEAN PLATELET VOLUME (test code = 10.00 fL 7.0-10.5 N MPV) NEUTROPHIL % (test code = NT%) 37.4 % 40-76 L LYMPHOCYTE % (test code = LY%) 54.4 % 20.5-51.1 H MONOCYTE % (test code = MO%) 6.7 % 1.7-9.3 N EOSINOPHIL % (test code = EO%) 1.1 % 0.0-6.0 N BASOPHIL % (test code = BA%) 0.4 % 0.0-2.0 N NEUTROPHIL # (test code = NT#) 1.67 K/mm3 1.8-7.6 L LYMPHOCYTE # (test code = LY#) 2.4 K/mm3 0.6-3.2 N MONOCYTE # (test code = MO#) 0.3 K/mm3 0.3-1.1 N EOSINOPHIL # (test code = EO#) 0.1 K/mm3 0.0-0.4 N BASOPHIL # (test code = BA#) 0.0 K/mm3 0.0-0.1 N MANUAL DIFF REQUIRED (test code = NO DIFF/SCN CRITERIA MDIFF) CBC W/AUTO [id number] 04:52:00 Test Item Value Reference Range Interpretation Comments WHITE BLOOD CELL (test code = 4.5 K/mm3 3.5-11.0 N WBC) RED BLOOD CELL (test code = RBC) 4.12 M/mm3 4.70-6.10 L HEMOGLOBIN (test code = HGB) 9.2 G/DL 10.4-14.9 L HEMATOCRIT (test code = HCT) 31.8 % 31.5-44.1 N MEAN CELL VOLUME (test code = 77.2 Fl 84.5-98.6 L MCV) MEAN CELL HGB (test code = MCH) 22.3 pg 27.0-34.2 L MEAN CELL HGB CONCETRATION (test 28.9 G/DL 31.5-34.0 L code = MCHC) RED CELL DISTRIBUTION WIDTH (test 17.2 SD 11.5-14.5 H code = RDW) PLATELET COUNT (test code = PLT) 249.0 K/mm3 150-450 N MEAN PLATELET VOLUME (test code = 10.00 fL 7.0-10.5 N MPV) NEUTROPHIL % (test code = NT%) 37.4 % 40-76 L LYMPHOCYTE % (test code = LY%) 54.4 % 20.5-51.1 H MONOCYTE % (test code = MO%) 6.7 % 1.7-9.3 N EOSINOPHIL % (test code = EO%) 1.1 % 0.0-6.0 N BASOPHIL % (test code = BA%) 0.4 % 0.0-2.0 N NEUTROPHIL # (test code = NT#) 1.67 K/mm3 1.8-7.6 L LYMPHOCYTE # (test code = LY#) 2.4 K/mm3 0.6-3.2 N MONOCYTE # (test code = MO#) 0.3 K/mm3 0.3-1.1 N EOSINOPHIL # (test code = EO#) 0.1 K/mm3 0.0-0.4 N BASOPHIL # (test code = BA#) 0.0 K/mm3 0.0-0.1 N MANUAL DIFF REQUIRED (test code = NO DIFF/SCN CRITERIA MDIFF) RBC [id number] 04:52:00 Test Item Value Reference Range Interpretation Comments ANISOCYTOSIS (test code = TRACE NONE ANISO) PLATELET ESTIMATE (test ADEQUATE THOUSAND ADEQUATE code = PLTEST) PLATELET MORPHOLOGY (test NORMAL code = PLTMORPH) CBC W/AUTO [id number] 04:52:00 Test Item Value Reference Range Interpretation Comments WHITE BLOOD CELL (test code = 4.5 K/mm3 3.5-11.0 N WBC) RED BLOOD CELL (test code = RBC) 4.12 M/mm3 4.70-6.10 L HEMOGLOBIN (test code = HGB) 9.2 G/DL 10.4-14.9 L HEMATOCRIT (test code = HCT) 31.8 % 31.5-44.1 N MEAN CELL VOLUME (test code = 77.2 Fl 84.5-98.6 L MCV) MEAN CELL HGB (test code = MCH) 22.3 pg 27.0-34.2 L MEAN CELL HGB CONCETRATION (test 28.9 G/DL 31.5-34.0 L code = MCHC) RED CELL DISTRIBUTION WIDTH (test 17.2 SD 11.5-14.5 H code = RDW) PLATELET COUNT (test code = PLT) 249.0 K/mm3 150-450 N MEAN PLATELET VOLUME (test code = 10.00 fL 7.0-10.5 N MPV) NEUTROPHIL % (test code = NT%) 37.4 % 40-76 L LYMPHOCYTE % (test code = LY%) 54.4 % 20.5-51.1 H MONOCYTE % (test code = MO%) 6.7 % 1.7-9.3 N EOSINOPHIL % (test code = EO%) 1.1 % 0.0-6.0 N BASOPHIL % (test code = BA%) 0.4 % 0.0-2.0 N NEUTROPHIL # (test code = NT#) 1.67 K/mm3 1.8-7.6 L LYMPHOCYTE # (test code = LY#) 2.4 K/mm3 0.6-3.2 N MONOCYTE # (test code = MO#) 0.3 K/mm3 0.3-1.1 N EOSINOPHIL # (test code = EO#) 0.1 K/mm3 0.0-0.4 N BASOPHIL # (test code = BA#) 0.0 K/mm3 0.0-0.1 N MANUAL DIFF REQUIRED (test code = NO DIFF/SCN CRITERIA MDIFF) BASIC METABOLIC [id number] 04:36:00 Test Item Value Reference Range Interpretation Comments SODIUM (test code = NA) 139 mmol/L 134-147 N POTASSIUM (test code = 3.5 mmol/L 3.4-5.0 N K) CHLORIDE (test code = 109 mmol/L 100-108 H CL) CARBON DIOXIDE (test 22 mmol/L 21-32 N code = CO2) ANION GAP (test code = 8.0 GAP calc 4.0-15.0 N GAP) GLUCOSE (test code = 174 MG/DL 70-110 H GLU) BLOOD UREA NITROGEN 9 MG/DL 7-18 N (test code = BUN) GLOMERULAR FILTRATION >=60 max estimate >60 RATE (test code = GFR) estGFR CREATININE (test code = 0.5 MG/DL 0.6-1.0 L CREAT) CALCIUM (test code = CA) 8.4 MG/DL 8.5-10.1 L CBC W/AUTO [id number] 04:17:00 Test Item Value Reference Range Interpretation Comments WHITE BLOOD CELL (test code = 4.5 K/mm3 3.5-11.0 N WBC) RED BLOOD CELL (test code = RBC) 4.12 M/mm3 4.70-6.10 L HEMOGLOBIN (test code = HGB) 9.2 G/DL 10.4-14.9 L HEMATOCRIT (test code = HCT) 31.8 % 31.5-44.1 N MEAN CELL VOLUME (test code = 77.2 Fl 84.5-98.6 L MCV) MEAN CELL HGB (test code = MCH) 22.3 pg 27.0-34.2 L MEAN CELL HGB CONCETRATION (test 28.9 G/DL 31.5-34.0 L code = MCHC) RED CELL DISTRIBUTION WIDTH (test 17.2 SD 11.5-14.5 H code = RDW) PLATELET COUNT (test code = PLT) 249.0 K/mm3 150-450 N MEAN PLATELET VOLUME (test code = 10.00 fL 7.0-10.5 N MPV) NEUTROPHIL % (test code = NT%) % 40-76 L LYMPHOCYTE % (test code = LY%) % 20.5-51.1 H MONOCYTE % (test code = MO%) % 1.7-9.3 N EOSINOPHIL % (test code = EO%) % 0.0-6.0 N BASOPHIL % (test code = BA%) % 0.0-2.0 N NEUTROPHIL # (test code = NT#) K/mm3 1.8-7.6 L LYMPHOCYTE # (test code = LY#) K/mm3 0.6-3.2 N MONOCYTE # (test code = MO#) K/mm3 0.3-1.1 N EOSINOPHIL # (test code = EO#) K/mm3 0.0-0.4 N BASOPHIL # (test code = BA#) K/mm3 0.0-0.1 N MANUAL DIFF REQUIRED (test code = DIFF/SCN CRITERIA MDIFF) GLUCOSE BEDSIDE [id number] 20:58:00 Test Item Value Reference Range Interpretation Comments GLUCOSE BEDSIDE TESTING (test code 200 mg/dL 70-110 H = GLUBED) GLUCOSE BEDSIDE [id number] 17:15:00 Test Item Value Reference Range Interpretation Comments GLUCOSE BEDSIDE TESTING (test code 151 mg/dL 70-110 H = GLUBED) SED [id number] 15:56:00 Test Item Value Reference Range Interpretation Comments SED RATE (test code = SEDW) 45 mm/hr 0-20 H C REACTIVE [id number] 14:09:00 Test Item Value Reference Range Interpretation Comments C REACTIVE PROTEIN (test code = < 0.290 MG/DL 0.000-0.3 N CRP) GLUCOSE BEDSIDE [id number] 11:38:00 Test Item Value Reference Range Interpretation Comments GLUCOSE BEDSIDE TESTING (test code 133 mg/dL 70-110 H = GLUBED) - MRI BRAIN W/O [id number] 10:48:00 FAX: Adrian Aleman MD [phone] Camps: PM St: ADM FAX: Chantell Frank [phone] Name: TR JAVED [facility] : 1975 Age/S: 44/F [address] [facility] Unit #: [id number] Loc: L.[address] [place] [address] Phys: Adrian Aleman MD Acct: [id number] Dis Date: Status: ADM IN PHONE #: [phone] Exam Date: 10/15/2019 1025 FAX #: Reason: STROKEWORK UP EXAMS: CPT: [id number] MRI BRAIN W/O CONTRAST 98515 R16 - MRI BRAIN W/O CONTRAST HISTORY: TIA TECHNIQUE: Multiplanar multisequence MR images of the brain were obtained without intravenous contrast. COMPARISON: Head CT 10/14/2019 FINDINGS: No abnormal brain parenchymal signal. There is no mass, mass effect or abnormal extra-axial fluid collection. Diffusion-weighted images show no hyperacute, acute or early subacute infarction. The ventricles are normal in size, shape, and position. There are normal signal voids in the larger intracranial vessels. The paranasal sinuses and mastoid air cells are predominantly clear. The marrow signal pattern is within normal limits. IMPRESSION: No significant intracranial abnormalities. at 1048 Reported and signed by: Andrei Lee M.D. CC: Adrian Aleman MD; Chantell GIANG Technologist: Dean Mackenzie, RT(R)(MR) Transcribed Date/Time/By: 10/15/2019 (7756) :[email or web address] Orig Print D/T: S: 10/15/2019 (0099) PAGE 1 Signed Report- CT ANGIO [id number] 09:37:00 Name: TR JAVED : 1975 Age/S: 44 / F [address] [facility] [place] Unit #: [id number] Loc: [place] [address] Phys: Tiffanie Nayak MD Acct: [id number] Dis Date: Status: ADM IN PHONE #: [phone] Exam Date: 10/15/2019 0811 FAX #: Reason: Headache,w Blurred vision EXAMS: CPT: [id number] CT ANGIO HEAD 01588 R16 - CT ANGIO NECK, - CT ANGIO HEAD HISTORY: Headache,w Blurred vision TECHNIQUE: Axial CT images were obtained from the aortic arch to the skull vertex after intravenous contrast utilizing CTA protocol. Maximum intensity projection images were created from the data set. One or more of the following dose reduction techniques were used: Automated exposure control, adjustment of the mA and/or kV according to patient size, and/or iterative reconstruction. COMPARISON: Head CT 10/14/2019 FINDINGS: CTA NECK: The imaged aortic arch is normal. The origins of the brachiocephalic, bilateral common carotid, bilateral subclavian, and bilateral vertebral arteries demonstrate nosignificant stenosis. The bilateral internal and external carotid arteries are patent. There is no significant internal carotid artery stenosis by NASCET-like criteria. The cervical vertebral arteries are patent and codominant. There is no evidence of arterial dissection, significant stenosis, occlusion, extravasation of contrast material, arteriovenous fistula or pseudoaneurysm. Maximum intensity projection images confirm these findings. CTA HEAD: The petrous, cavernous, and supraclinoid segments of the bilateral internal carotid arteries are normal. The ophthalmic artery origins are visualized and normal. The posterior communicating arteries are patent. Anterior and middle cerebral arteries are normal bilaterally. The anterior communicating arteryis patent. PAGE 1 Signed Report (CONTINUED) Name: TR JAVED : 1975 Age/S: 44 / F [address] [facility] [place] Unit #: [id number] Loc: [place] [id number] Phys: Tiffanie Nayak MD Acct: [id number] Dis Date: Status: ADM IN PHONE #: [phone] Exam Date: 10/15/2019810 FAX #: Reason: Headache,w Blurred vision EXAMS: CPT: [id number] CT ANGIO HEAD 98759 <Continued> Both posterior cerebral arteries are normal. The vertebral arteries are patent and codominant. The basilar artery and origins of the bilateral posterior inferior cerebellar arteries, anterior inferior cerebellar arteries, and superior cerebellar arteries are normal. No saccular aneurysm, proximal arterial cut off, intra-arterial clot, or hemodynamically significant intracranial arterial stenosis is present. Maximum intensity projection images confirm these findings. IMPRESSION: Normalhead and neck CTA. at 0937 Reported and signed by: Andrei Lee M.D. CC: Tiffanie Nayak MD; Adrian Aleman MD Technologist:Kari Lyn, RT(R) CTDI: DLP: Trnscb Da te/Time: 10/15/2019 (0937) [email or web address] Orig Print D/T: S: 10/15/2019 (0941)PAGE 2 Signed Report- CT ANGIO NECK 2019-10-15 09:37:00 Name: TR JAVED : 1975 Age/S: 44 / F [address] [facility] [place] Unit #: [id number] Loc: [place] [address] Phys: Tiffanie Nayak MD Acct: [id number] Dis Date: Status: ADM IN PHONE #: [phone] Exam Date: 10/15/2019 0811 FAX #: Reason: Headache,w Blurred vision EXAMS: CPT: [id number] CT ANGIO NECK 27934 R16 - CT ANGIO NECK, - CT ANGIO HEAD HISTORY: Headache,w Blurred vision TECHNIQUE: Axial CT images were obtained from the aortic arch to the skull vertex after intravenous contrast utilizing CTA protocol. Maximum intensity projection images were created from the data set. One or more of the following dose reduction techniques were used: Automated exposure control, adjustment of the mA and/or kV according to patient size, and/or iterative reconstruction. COMPARISON: Head CT 10/14/2019 FINDINGS: CTA NECK: The imaged aortic arch is normal. The origins of the brachiocephalic, bilateral common carotid, bilateral subclavian, and bilateral vertebral arteries demonstrate no significant stenosis. The bilateral internal and external carotid arteries are patent. There is no significant internal carotid artery stenosis by NASCET-like criteria. The cervical vertebral arteries are patent and codominant. There is no evidence of arterial dissection, significant stenosis, occlusion, extravasation of contrast material, arteriovenous fistula or pseudoaneurysm. Maximum intensity projection images confirm these findings. CTA HEAD: The petrous, cavernous, and supraclinoid segments of the bilateral internal carotid arteries are normal. The ophthalmic artery origin s are visualized and normal. The posterior communicating arteries are patent. Anterior and middle cerebral arteries are normal bilaterally. The anterior communicating arteryis patent. PAGE 1 Signed Report (CONTINUED) Name: TR JAVED : 1975 Age/S: 44 / F [address] [facility] Unit #: [id number] Loc: [facility] [id number] Phys: Tiffanie Nayak MD Acct: [id number] Dis Date: Status: ADM IN PHONE #: [phone] Exam Date: 10/15/2019 0811 FAX #: Reason: Headache,w Blurred vision EXAMS: CPT: [id number] CT ANGIO NECK [address] <Continued> Both posterior cerebral arteries are normal. The vertebral arteries are patent and codominant. The basilar artery and origins of the bilateral posterior inferior cerebellar arteries, anterior inferior cerebellar arteries, and superior cerebellar arteries are normal. No saccular aneurysm, proximal arterial cut off, intra-arterial clot, or hemodynamically significant intracranial arterial stenosis is present. Maximum intensity projection images confirm these findings. IMPRESSION: Normalhead and neck CTA. at 0937 Reported and signed by: Andrei Lee M.D. CC: Tiffanie Nayak MD; Adrian Aleman MD Technologist:Kari Lyn, RT(R) CTDI: DLP: Trnscb Da te/Time: 10/15/2019 (0937) [email or web address] Orig Print D/T: S: 10/15/2019 (9879)PAGE 2 Signed ReportGLUCOSE BEDSIDE [id number] 08:19:00 Test Item Value Reference Range Interpretation Comments GLUCOSE BEDSIDE TESTING (test code 134 mg/dL 70-110 H = GLUBED) [id number] 07:03:00 Test Item Value Reference Range Interpretation Comments GLYCOSYLATED HEMOGLOBIN (HA1C) 10.0 % A1C 0.0-5.7 H (test code = GLYHGB) ESTIMATED AVERAGE GLUCOSE (test 240 MG/DLest code = EAG) LIPID PROFILE (CORONARY RISK)2019-10-15 06:31:00 Test Item Value Reference Range Interpretation Comments TRIGLYCERIDES (test code = TRIG) 215 MG/DL 0-150 H CHOLESTEROL (test code = CHOL) 162 MG/DL 133-200 N CHOLESTEROL/HDL RATIO (test code = 4.63 RATIO >0 CHOLHDL) HDL CHOLESTEROL (test code = HDL) 35 MG/DL 40-59 L NON-HDL CHOLESTEROL (test code = 127 mg/dL <130 NHDL) LIPOPROTEIN LDL (test code = LDL) 105 MG/DL 0-129 N LDL/HDL (test code = LDL/HDL) 3.00 Ratio 1.48-3.22 Avg N Comment: FASTING IN AMUA RFLX MICR CULT IF [id number] 00:31:00 Test Item Value Reference Range Interpretation Comments UA COLOR (test code = COLU) YELLOW discript YEL/STRAW UA APPEARANCE (test code = CLEAR discript CLEAR APPU) UA GLUCOSE DIPSTICK (test 3+ mg/dL NEG code = DGLUU) UA BILIRUBIN DIPSTICK (test NEGATIVE mg/dL NEG code = BILU) UA KETONE DIPSTICK (test NEGATIVE mg/dL NEG code = KETU) UA SPECIFIC GRAVITY (test 1.010 SG 1.005-1.030 code = SGU) UA BLOOD DIPSTICK (test NEGATIVE mg/DL NEG code = KATE) UA PH DIPSTICK (test code = 8.0 pH UNITS 5.0-7.0 JACQUELIN) UA PROTEIN DIPSTICK (test NEGATIVE mg/dL NEG code = PROU) UA UROBILINIOGEN DIPSTICK 0.2 mg/dL <2.0 (test code = URO) UA NITRITE DIPSTICK (test NEGATIVE SCREEN NEG code = LORI) UA LEUKOCYTE ESTERASE NEGATIVE Leuk/mcL NEGATIVE DIPSTICK (test code = LEUU) SOURCE OF URINE: CLEAN CATCHIndication for culture: Delirium-if no other src DRUGS OF ABUSE SCREEN [id number] 00:31:00 Test Item Value Reference Range Interpretation Comments URN COCAINE (test code = NEGATIVE SCcutoff <300 NG/ML COCAURN) URN CANNABINOIDS (test code NEGATIVE SCcutoff <50 NG/ML = CANNABURN) URN AMPHETAMINE (test code NEGATIVE SCcutoff <1000 NG/ML = AMPHETURN) URN BARBITURATE (test code NEGATIVE SCcutoff <200 NG/ML = BARBITURN) URN BENZODIAZEPINE (test NEGATIVE SCcutoff <200 NG/ML code = BENZOURN) URN OPIATES (test code = NEGATIVE SCcutoff <2000 NG/ML OPIATURN) URN PHENCYCLIDINE (PCP) NEGATIVE SCcutoff <25 NG/ML (test code = PHENCURN) URN METHADONE (test code = NEGATIVE SCcutoff <300 NG/ML METHAURN) SOURCE OF URINE: CLEAN CATCHIndication for culture: Delirium-if no other src UA RFLX MICR CULT IF [id number] 00:10:00 Test Item Value Reference Range Interpretation Comments UA COLOR (test code = COLU) YELLOW discript YEL/STRAW UA APPEARANCE (test code = CLEAR discript CLEAR APPU) UA GLUCOSE DIPSTICK (test 3+ mg/dL NEG code = DGLUU) UA BILIRUBIN DIPSTICK (test NEGATIVE mg/dL NEG code = BILU) UA KETONE DIPSTICK (test NEGATIVE mg/dL NEG code = KETU) UA SPECIFIC GRAVITY (test 1.010 SG 1.005-1.030 code = SGU) UA BLOOD DIPSTICK (test NEGATIVE mg/DL NEG code = KATE) UA PH DIPSTICK (test code = 8.0 pH UNITS 5.0-7.0 JACQUELIN) UA PROTEIN DIPSTICK (test NEGATIVE mg/dL NEG code = PROU) UA UROBILINIOGEN DIPSTICK 0.2 mg/dL <2.0 (test code = URO) UA NITRITE DIPSTICK (test NEGATIVE SCREEN NEG code = LORI) UA LEUKOCYTE ESTERASE NEGATIVE Leuk/mcL NEGATIVE DIPSTICK (test code = LEUU) UA CULTURE NEEDED? (test Criteria Culture CHK code = UACULT) SOURCE OF URINE: CLEAN CATCHIndication for culture: Delirium-if no other src DRUGS OF ABUSE SCREEN [id number] 00:10:00 Test Item Value Reference Range Interpretation Comments URN COCAINE (test code = COCAURN) SCcutoff <300 NG/ML URN CANNABINOIDS (test code = SCcutoff <50 NG/ML CANNABURN) URN AMPHETAMINE (test code = SCcutoff <1000 NG/ML AMPHETURN) URN BARBITURATE (test code = SCcutoff <200 NG/ML BARBITURN) URN BENZODIAZEPINE (test code = SCcutoff <200 NG/ML BENZOURN) URN OPIATES (test code = OPIATURN) SCcutoff <2000 NG/ML URN PHENCYCLIDINE (PCP) (test code SCcutoff <25 NG/ML = PHENCURN) URN METHADONE (test code = SCcutoff <300 NG/ML METHAURN) SOURCE OF URINE: CLEAN CATCHIndication for culture: Delirium-if no other src UA RFLX MICR CULT IF [id number] 00:10:00 Test Item Value Reference Range Interpretation Comments UA COLOR (test code = COLU) YELLOW discript YEL/STRAW UA APPEARANCE (test code = CLEAR discript CLEAR APPU) UA GLUCOSE DIPSTICK (test 3+ mg/dL NEG code = DGLUU) UA BILIRUBIN DIPSTICK (test NEGATIVE mg/dL NEG code = BILU) UA KETONE DIPSTICK (test NEGATIVE mg/dL NEG code = KETU) UA SPECIFIC GRAVITY (test 1.010 SG 1.005-1.030 code = SGU) UA BLOOD DIPSTICK (test NEGATIVE mg/DL NEG code = KATE) UA PH DIPSTICK (test code = 8.0 pH UNITS 5.0-7.0 JACQUELIN) UA PROTEIN DIPSTICK (test NEGATIVE mg/dL NEG code = PROU) UA UROBILINIOGEN DIPSTICK 0.2 mg/dL <2.0 (test code = URO) UA NITRITE DIPSTICK (test NEGATIVE SCREEN NEG code = LORI) UA LEUKOCYTE ESTERASE NEGATIVE Leuk/mcL NEGATIVE DIPSTICK (test code = LEUU) SOURCE OF URINE: CLEAN CATCHIndication for culture: Delirium-if no other src DRUGS OF ABUSE SCREEN [id number] 00:10:00 Test Item Value Reference Range Interpretation Comments URN COCAINE (test code = COCAURN) SCcutoff <300 NG/ML URN CANNABINOIDS (test code = SCcutoff <50 NG/ML CANNABURN) URN AMPHETAMINE (test code = SCcutoff <1000 NG/ML AMPHETURN) URN BARBITURATE (test code = SCcutoff <200 NG/ML BARBITURN) URN BENZODIAZEPINE (test code = SCcutoff <200 NG/ML BENZOURN) URN OPIATES (test code = OPIATURN) SCcutoff <2000 NG/ML URN PHENCYCLIDINE (PCP) (test code SCcutoff <25 NG/ML = PHENCURN) URN METHADONE (test code = SCcutoff <300 NG/ML METHAURN) SOURCE OF URINE: CLEAN CATCHIndication for culture: Delirium-if no other src - CT HEAD/BRAIN W/O [id number] 23:41:00 Name: TR JAVED [facility] : 1975 Age/S: 44 / F [address] [facility] Unit #: [id number] Loc: [place] [address] Phys: Parish Roper MD Acct: [id number] Dis Date: Status: REG ER PHONE #: [phone] Exam Date: 10/14/2019 3793 FAX #: Reason: cva EXAMS: CPT: [id number] CT HEAD/BRAIN W/O CONT 47[address] CT head History: cva Comparison: None at this time Location: R16 Technique: Noncontrast CT scan of the head was performed. One or more of the following radiation dose reduction techniques was used: automated exposure control, adjustment of mA and/or KV according to patient size, and/or utilization of iterative reconstructiontechnique. Quality of Exam: Acceptable. The ventricles, sulci and cisterns are within normal limits in size for this age patient. There is no convincing evidence of intracranial hemorrhage or mass effect. There is no midline shift. The visualized paranasal sinuses are unremarkable. IMPRESSION: There is no imaging evidence of acute intracranial pathology. at 2341 Reported and signed by: Keny Anthony M.D. CC: Parish Roper MD Technologist:Michael Mittal, RT(R); Best Gastelum, CTDI: DLP: Trnscb Date/Time: 10/14/2019 (928) [email or web address] Orig Print D/T: S: 10/14/2019 (1470) PAGE 1 Signed Report- XR CHEST 1 V 2019-10-14 23:40:00 Name: TR JAVED [facility] : 1975 Age/S: 44 / F [address] [address] [place] Unit #: [id number] Loc: [place] [address] Phys: Parish Roper MD Acct: [id number] Dis Date: Status: REG ER PHONE #: [phone] Exam Date: 10/14/2019 233 FAX #: Reason: cva EXAMS: CPT: [id number] XR CHEST 1 V 43148 Fluoro Time: DAP (Gy m2): Air Kerma (mGy): EXAM: - XR CHEST 1 V HISTORY: Weakness. COMPARISON: None available time of interpretation. FINDINGS: Single AP view of the chest is provided. Heart size and vascularity are within normal limits. The lungs are clear of focal consolidation. No effusion, pneumothorax, or acu te osseous abnormality. Overlying artifacts are present. IMPRESSION: No radiographic evidence of acute cardiopulmonary process. at 2340 Reported and signed by: Richard Lopez M.D. CC: Parish Roper MD PAGE 1 Signed Report Name: TR JAVED [facility] : 1975 Age/S: 44 / F [address] [address] [place] Unit #: [id number] Loc: [place] [address] Phys: Parish Roper MD Acct: [id number] Dis Date: Status: REG ER PHONE #: [phone] Exam Date: 10/14/2019 2337 FAX #: Reason: cva EXAMS: CPT: [id number] XR CHEST 1 V 99902 Fluoro Time: DAP (Gy m2): Air Kerma (mGy): <Continued> Technologist: Michael Mittal, RT(R); Best Gastelum RT(R)(CT) Trnscb Date/Time: 10/14/2019 (4955) [email or web address] Orig Print D/T: S: 10/14/2019 (1228) PAGE 2 Signed ReportCOMPREHENSIVE METABOLIC PANEL 2019-10-14 23:19:00 Test Item Value Reference Range Interpretation Comments SODIUM (test code = NA) 137 mmol/L 134-147 N POTASSIUM (test code = 3.3 mmol/L 3.4-5.0 L K) CHLORIDE (test code = 106 mmol/L 100-108 N CL) CARBON DIOXIDE (test 23 mmol/L 21-32 N code = CO2) ANION GAP (test code = 8.0 GAP calc 4.0-15.0 N GAP) GLUCOSE (test code = 215 MG/DL 70-110 H GLU) BLOOD UREA NITROGEN 6 MG/DL 7-18 L (test code = BUN) GLOMERULAR FILTRATION >=60 max estimate >60 RATE (test code = GFR) estGFR CREATININE (test code = 0.8 MG/DL 0.6-1.0 N CREAT) TOTAL PROTEIN (test code 7.2 G/DL 6.4-8.2 N = PROT) ALBUMIN (test code = 3.3 G/DL 3.4-5.0 L ALB) GLOBULIN (test code = 3.9 GM/dL GLOB) ALBUMIN/GLOBULIN RATIO 0.9 RATIO 1.2-2.2 L (test code = A/G) CALCIUM (test code = CA) 8.5 MG/DL 8.5-10.1 N BILIRUBIN TOTAL (test 0.30 MG/DL 0.2-1.2 N code = BILT) SGOT/AST (test code = 20 Unit/L 15-37 N AST) SGPT/ALT (test code = 38 Unit/L 12-78 N ALT) ALKALINE PHOSPHATASE 112 Unit/L 45-117 N TOTAL (test code = ALKP) Completed by Nursing: NOHCG SERUM [id number] 23:19:00 Test Item Value Reference Range Interpretation Comments HCG SERUM QUAL (test SERUM NEGATIVE SCREEN NEGATIVE code = HCGQL) Completed by Nursing: [id number] 23:19:00 Test Item Value Reference Range Interpretation Comments TROPONIN-I (test < 0.015 NG/ML 0.000-0.045 N Negative: </= 0.045 code = TROPI) Positive: >/= 0.046 Correlation wit h serial results, other cardiac markers, and cl inical findings is nec essary to determine the c linical significance of this result. Quantit ative results using d ifferent methodologies s hould not be compared to one another as nume rical results may kavitha yby method. Completed by Nursing: [id number] 23:19:00 Test Item Value Reference Range Interpretation Comments ALCOHOL (test code = ALC) < 3 MG/DL 0-10 N Completed by Nursing: NOCOMPREHENSIVE METABOLIC [id number] 23:15:00 Test Item Value Reference Range Interpretation Comments SODIUM (test code = NA) 137 mmol/L 134-147 N POTASSIUM (test code = K) 3.3 mmol/L 3.4-5.0 L CHLORIDE (test code = CL) 106 mmol/L 100-108 N CARBON DIOXIDE (test code = CO2) 23 mmol/L 21-32 N ANION GAP (test code = GAP) 8.0 GAP calc 4.0-15.0 N GLUCOSE (test code = GLU) 215 MG/DL 70-110 H BLOOD UREA NITROGEN (test code = 6 MG/DL 7-18 L BUN) GLOMERULAR FILTRATION RATE (test estGFR >60 code = GFR) CREATININE (test code = CREAT) MG/DL 0.6-1.0 TOTAL PROTEIN (test code = PROT) G/DL 6.4-8.2 ALBUMIN (test code = ALB) G/DL 3.4-5.0 GLOBULIN (test code = GLOB) GM/dL ALBUMIN/GLOBULIN RATIO (test RATIO 1.2-2.2 code = A/G) CALCIUM (test code = CA) 8.5 MG/DL 8.5-10.1 N BILIRUBIN TOTAL (test code = MG/DL 0.2-1.2 BILT) SGOT/AST (test code = AST) Unit/L 15-37 SGPT/ALT (test code = ALT) Unit/L 12-78 ALKALINE PHOSPHATASE TOTAL (test Unit/L 45-117 code = ALKP) Completed by Nursing: NOHCG SERUM [id number] 23:15:00 Test Item Value Reference Range Interpretation Comments HCG SERUM QUAL (test SERUM NEGATIVE SCREEN NEGATIVE code = HCGQL) Completed by Nursing: [id number] 23:15:00 Test Item Value Reference Range Interpretation Comments TROPONIN-I (test code = TROPI) NG/ML 0.000-0.045 Completed by Nursing: [id number] 23:15:00 Test Item Value Reference Range Interpretation Comments ALCOHOL (test code = ALC) MG/DL 0-10 Completed by Nursing: NOCOMPREHENSIVE METABOLIC [id number] 23:13:00 Test Item Value Reference Range Interpretation Comments SODIUM (test code = NA) 137 mmol/L 134-147 N POTASSIUM (test code = K) 3.3 mmol/L 3.4-5.0 L CHLORIDE (test code = CL) 106 mmol/L 100-108 N CARBON DIOXIDE (test code = CO2) 23 mmol/L 21-32 N ANION GAP (test code = GAP) 8.0 GAP calc 4.0-15.0 N GLUCOSE (test code = GLU) 215 MG/DL 70-110 H BLOOD UREA NITROGEN (test code = 6 MG/DL 7-18 L BUN) GLOMERULAR FILTRATION RATE (test estGFR >60 code = GFR) CREATININE (test code = CREAT) MG/DL 0.6-1.0 TOTAL PROTEIN (test code = PROT) G/DL 6.4-8.2 ALBUMIN (test code = ALB) G/DL 3.4-5.0 GLOBULIN (test code = GLOB) GM/dL ALBUMIN/GLOBULIN RATIO (test RATIO 1.2-2.2 code = A/G) CALCIUM (test code = CA) 8.5 MG/DL 8.5-10.1 N BILIRUBIN TOTAL (test code = MG/DL 0.2-1.2 BILT) SGOT/AST (test code = AST) Unit/L 15-37 SGPT/ALT (test code = ALT) Unit/L 12-78 ALKALINE PHOSPHATASE TOTAL (test Unit/L 45-117 code = ALKP) Completed by Nursing: NOHCG SERUM [id number] 23:13:00 Test Item Value Reference Range Interpretation Comments HCG SERUM QUAL (test code = HCGQL) SCREEN NEGATIVE Completed by Nursing: [id number] 23:13:00 Test Item Value Reference Range Interpretation Comments TROPONIN-I (test code = TROPI) NG/ML 0.000-0.045 Completed by Nursing: [id number] 23:13:00 Test Item Value Reference Range Interpretation Comments ALCOHOL (test code = ALC) MG/DL 0-10 Completed by Nursing: NOCBC W/AUTO [id number] 23:00:00 Test Item Value Reference Range Interpretation Comments WHITE BLOOD CELL (test code = 6.1 K/mm3 3.5-11.0 N WBC) RED BLOOD CELL (test code = RBC) 4.28 M/mm3 4.70-6.10 L HEMOGLOBIN (test code = HGB) 9.9 G/DL 10.4-14.9 L HEMATOCRIT (test code = HCT) 32.8 % 31.5-44.1 N MEAN CELL VOLUME (test code = 76.6 Fl 84.5-98.6 L MCV) MEAN CELL HGB (test code = MCH) 23.1 pg 27.0-34.2 L MEAN CELL HGB CONCETRATION (test 30.2 G/DL 31.5-34.0 L code = MCHC) RED CELL DISTRIBUTION WIDTH (test 17.1 SD 11.5-14.5 H code = RDW) PLATELET COUNT (test code = PLT) 290.0 K/mm3 150-450 N MEAN PLATELET VOLUME (test code = 9.90 fL 7.0-10.5 N MPV) NEUTROPHIL % (test code = NT%) 51.1 % 40-76 N LYMPHOCYTE % (test code = LY%) 41.5 % 20.5-51.1 N MONOCYTE % (test code = MO%) 6.4 % 1.7-9.3 N EOSINOPHIL % (test code = EO%) 0.8 % 0.0-6.0 N BASOPHIL % (test code = BA%) 0.2 % 0.0-2.0 N NEUTROPHIL # (test code = NT#) 3.14 K/mm3 1.8-7.6 N LYMPHOCYTE # (test code = LY#) 2.6 K/mm3 0.6-3.2 N MONOCYTE # (test code = MO#) 0.4 K/mm3 0.3-1.1 N EOSINOPHIL # (test code = EO#) 0.1 K/mm3 0.0-0.4 N BASOPHIL # (test code = BA#) 0.0 K/mm3 0.0-0.1 N MANUAL DIFF REQUIRED (test code = NO DIFF/SCN CRITERIA MDIFF) POCT GLUCOSE (AUTOMATED)2019-08-31 19:57:00 Test Item Value Reference Range Interpretation Comments POCT GLU (test code = 6155057984) 184 mg/dL 70-110 H Lab Interpretation (test code = Abnormal 51071-7) [facility] [id number] 22:48:00 Test Item Value Reference Range Interpretation Comments POCT PREG (test code = 1605) Negative On board controls acceptable with C Yes Line (test code = 3574) POCT PREG LOT # (test code = 3575) POCT PREG TEST DATE (test code = 3576) [facility] [id number] 22:48:00 Test Item Value Reference Range Interpretation Comments POCT PREG (test code = 1605) Negative On board controls acceptable with C Yes Line (test code = 3574) POCT PREG LOT # (test code = 3575) POCT PREG TEST DATE (test code = 3576) [id number] 22:19:13HISTORY: Possible infected subcutaneous cyst. Patient complaining of apainful increasing mass. COMPARISON: None. TECHNIQUE: Area of concern in the posterior left upper chest was evaluatedusing multipledifferent transducers without and with color imaging. FINDINGS: A discrete hypoechoic solid mass of approximately 5.5 x 4.8 x 1cm size solid tumor is confirmed, located underneath the subcutaneoustissue s/fat, on the surface of the muscle. The lesion is essentiallyavascular and showed no aggressive features. CONCLUSIONS: 5.5 x 1 cm size solid tumor in the subcutaneous tissue in theleft posterior upperchest, consistent with benign lipoma/lipofibroma. [facility], Radiant Results Inft User - 07/20/2019 4:20PM CSTHISTORY: Possible infected subcutaneous cyst. Patient complaining of apainful increasing mass.COMPARISON: None.TECHNIQUE: Area of concern in the posterior left upper chest was evaluatedusing multiple different transducers without and with color imaging.FINDINGS: A discrete hypoechoic solid mass of approximately 5.5 x 4.8 x 1cm size solid tumor is confirmed, located underneath the subcutaneoustissues/fat, on the surface of the muscle. The lesion is essentiallyavascular and showed no aggressive features.CONCLUSIONS: 5.5 x 1 cm size solid tumor in the subcutaneous tissue in theleft posterior upper chest, consistent with benign lipoma/lipofibroma.[facility] URINALYSIS W/O SPECIFIC [id number] 20:12:00 Test Item Value Reference Range Interpretation Comments POCT PH U (test code = 3254) 5 mg/dl 5-8 POCT U LEUK EST (test code = Neg Negative - Negative 3263) POCT U NIT (test code = 3262) Neg Negative - Negative POCT U PROT (test code = 3259) Trace Negative - Negative POCT U GLU (test code = 3256) 2+ Negative - Negative POCT U KETONE (test code = 3258) None Negative - Negative POCT U BLD (test code = 3257) Neg Negative - Negative [facility] [id number] 20:12:00 Test Item Value Reference Range Interpretation Comments POCT PH U (test code = 3254) 5 mg/dl 5-8 POCT U LEUK EST (test code = Neg Negative - Negative 3263) POCT U NIT (test code = 3262) Neg Negative - Negative POCT U PROT (test code = 3259) Trace Negative - Negative POCT U GLU (test code = 3256) 2+ Negative - Negative POCT U KETONE (test code = 3258) None Negative - Negative POCT U BLD (test code = 3257) Neg Negative - Negative [facility]CIFIC [id number] 14:24:00 Test Item Value Reference Range Interpretation Comments POCT PH U (test code = 3254) 7 mg/dl 5-8 POCT U LEUK EST (test code = 3+ Negative - Negative 3263) POCT U NIT (test code = 3262) pos Negative - Negative POCT U PROT (test code = 3259) 1+ Negative - Negative POCT U GLU (test code = 3256) 3+ Negative - Negative POCT U KETONE (test code = 3258) 3+ Negative - Negative POCT U BLD (test code = 3257) large Negative - Negative [facility] [id number] 14:23:00 Test Item Value Reference Range Interpretation Comments POCT PREG (test code = 1605) Positive On board controls acceptable with C Yes Line (test code = 3574) POCT PREG LOT # (test code = 3575) POCT PREG TEST DATE (test code = 3576) [facility] WITHOUT [id number] 19:17:[address] head without contrast 07/23/2018 7:17 PM CLINICAL HISTORY: left side headache TECHNIQUE: Axial noncontrast CT images through the head were obtained. This examination was performed according to our departmental dose optimization program, which includes automated exposure control, adjustment of the mA and/or kV according to patient size, and/or use of iterated reconstruction technique. COMPARISON: 12/29/2014 FINDINGS: There is no hemorrhage, extra-axial collection,mass, hydrocephalus, or midline shift. There is no CT evidence for cerebral infarction. There is generalized parenchymal volume loss. The visualized paranasal sinuses and mastoid air cells are well aerated. The skull is intact. IMPRESSION: No intracranial hemorrhage or mass effect. If concern foracute pathology persists, further evaluation with MRI is recommended. Signed: Lydia De Paz MDReport Verified Date/Time: 07/23/2018 19:17:57 Reading Location: [facility] Radiology Reading Room
[2022-01-28 17:00] LABS: Urine Blood Negative (Negative); Urine Glucose 3+ (Negative); Urine Protein Negative (Negative)
[2022-01-28 17:03] LABS: Hematocrit 39.2 % (36.0-45.0); Lymphocytes % 29.7 % (15.3-44.8); MCV 90.4 fL (80-100); MPV 8.6 fL (7.6-11.3); RBC Red Blood Cell Count 4.34 M/uL (3.86-4.86)
[2022-01-28 17:26] LABS: Albumin 3.7 g/dL (3.4-5.0); Bilirubin Total 0.5 mg/dL (0.2-1.0); Potassium 3.2 mmol/L (3.5-5.1); Protein, Total 7.7 g/dL (6.4-8.2)
[2022-01-28 17:52] LABS: Urine Bacteria <20 /HPF (<20); Urine RBC <5 /HPF (None Seen)
[2022-01-28] MEDS ORDERED: MEPERIDINE HCL 25 MG/ML SYR ONE (18:00)
[2022-01-28] MEDS ORDERED: ONDANSETRON 4 MG/2 ML VIAL ONE (18:01)
--- NOTE | 2022-01-28 18:56 | RAD REPORT ---
EXAM DESCRIPTION: CT - Abdomen Pelvis W Contrast - 01/28/2022 6:35 pm CLINICAL HISTORY: abdominal pain COMPARISON: No comparisons TECHNIQUE: Biphasic, helical CT imaging of the abdomen and pelvis was performed following 100 ml non -ionic IV contrast. No oral contrast administered. All CT scans are performed using dose optimization technique as appropriate and may include automated exposure control or mA/KV adjustment according to patient size. FINDINGS: No suspicious findings in the lung bases. The liver, spleen, and pancreas show no suspicious findings. Cholecystectomy clips are present. No bi liary tree dilatation. Symmetric renal function is seen with no hydronephrosis or suspicious renal mass. No pyelonephritis o r acute parenchymal process. No bladder abnormalities. No adrenal abnormalities. Uterus is absent. Ri ght ovary is still seen and unremarkable. Left ovary is seen. There is a tubular cystic structure adj acent to the left ovary that may be remnant fluid-filled fallopian tube. Enteric cyst would be possib le. This is not felt to be of clinical significance. Vaginal wagoner appear thickened over what is typi oc seen. There is no history that indicates any pelvic symptoms. No dilated bowel loops or bowel wall thickening. Appendix is normal. No free air, free fluid or infla mmatory stranding. No hernia, mass or bulky lymphadenopathy. No suspicious bony findings. IMPRESSION: Contrast enhanced CT abdomen and pelvis showing no acute or emergent finding.
--- NOTE | 2022-01-28 20:10 | ER ---
Nurse's Notes [facility] Name: Leonela Kelley Age: 46 yrs Sex: Female : 1975 Arrival Date: 01/28/2022 Time: 15:07 Bed 16 Private MD: Diagnosis: Abdominal pain, unspecified Presentation: 01/28 15:24 Chief complaint: RUQ pain that radiates to back x 1 week, N/V x 4 days, diarrhea since hb yesterday. Coronavirus screen: At this time, the client does not indicate any symptoms associated with coronavirus-19. Ebola Screen: No symptoms or risks identified at this time. Initial Sepsis Screen: Does the patient meet any 2 criteria? No. Patient's initial sepsis screen is negative. Does the patient have a suspected source of infection? No. Patient's initial sepsis screen is negative. Risk Assessment: Do you want to hurt yourself or someone else? Patient reports no desire to harm self or others. Onset of symptoms was January 21, 2022. 15:24 Method Of Arrival: Ambulatory hb 15:24 Acuity: JAIME 3 hb Historical: - Allergies: 15:27 Codeine; hb - Home Meds: 15:27 spironolactone Oral [Active]; atorvastatin oral [Active]; losartan oral [Active]; hb amlodipine oral [Active]; Cymbalta oral [Active]; Insulin: Lantus Sub-Q [Active]; Novolog U-100 Insulin aspart 100 unit/mL Sub-Q soln [Active]; Trulicity subcutaneous [Active]; - PMHx: 15:27 Diabetes mellitus; Hypertensive disorder; hb - PSHx: 15:27 Cholecystectomy; uterine ablation; hysterectomy; hb - Immunization history:: Client reports receiving the 2nd dose of the Covid vaccine. - Social history:: Smoking status: Patient denies any tobacco usage or history of. Screenin:45 Abuse screen: Denies threats or abuse. Nutritional screening: No deficits noted. vg1 Tuberculosis screening: No symptoms or risk factors identified. Fall Risk No fall in past 12 months (0 pts). No secondary diagnosis (0 pts). IV access (20 points). Ambulatory Aid- None/Bed Rest/Nurse Assist (0 pts). Gait- Normal/Bed Rest/Wheelchair (0 pts) Mental Status- Oriented to own ability (0 pts). Total Bishop Fall Scale indicates No Risk (0-24 pts). Assessment: 16:45 General: Appears in no apparent distress. uncomfortable, Behavior is calm, cooperative. vg1 Pain: Complains of pain in epigastric area, right upper quadrant and left lower quadrant Pain currently is 9 out of 10 on a pain scale. Quality of pain is described as burning, Pain began x 1 week. Neuro: Level of Consciousness is awake, alert, obeys commands, Oriented to person, place, time, situation. Cardiovascular: Patient's skin is warm and dry. Respiratory: Airway is patent Respiratory effort is even, unlabored. GI: Abdomen is flat, non-distended, Bowel sounds present X 4 quads. Abdomen is tender to palpation in epigastric area, right upper quadrant and left lower quadrant Reports vomited on Thursday01/25/22 and diarrhea on Thursday01/27/22 and last 'normal' BM was Thursday01/26/22. : No signs and/or symptoms were reported regarding the genitourinary system. EENT: No signs and/or symptoms were reported regarding the EENT system. Derm: Skin is intact, is healthy with good turgor. Musculoskeletal: Circulation, motion, and sensation intact. 17:45 Reassessment: Patient appears in no apparent distress at this time. No changes from vg1 previously documented assessment. Patient and/or family updated on plan of care and expected duration. Pain level reassessed. Patient is alert, oriented x 3, equal unlabored respirations, skin warm/dry/pink. 19:33 Reassessment: Patient appears in no apparent distress at this time. Patient and/or ke1 family updated on plan of care and expected duration. Pain level reassessed. Patient is alert, oriented x 3, equal unlabored respirations, skin warm/dry/pink. Patient states feeling better. Patient states symptoms have improved. Vital Signs: 15:24 BP 170 / 109; Pulse 83; Resp 16; Temp 97.2; Pulse Ox 100% on R/A; Weight 73.94 kg; hb Height 5 ft. 4 in. (162.56 cm); Pain 9/10; 16:45 BP 161 / 94; Pulse 84; Resp 16; Pulse Ox 100% on R/A; vg1 18:00 BP 167 / 97; Pulse 69; Resp 16; Pulse Ox 100% on R/A; vg1 19:34 Pain 2/10; ke1 20:05 BP 158 / 104; Pulse 71; Resp 17; Pulse Ox 10% ; Pain 0/10; ke1 15:24 Body Mass Index 27.98 (73.94 kg, 162.56 cm) ED Course: 15:07 Patient arrived in ED. mr 15:27 Triage completed. hb 15:27 Arm band placed on. hb 16:38 Damian Stein PA is PHCP. jr8 16:38 Talat Interiano MD is Attending Physician. jr8 16:43 Niki Ramos, RN is Primary Nurse. vg1 16:45 Patient has correct armband on for positive identification. Bed in low position. Call vg1 light in reach. Side rails up X 1. 17:08 Inserted saline lock: 20 gauge in left antecubital area, using aseptic technique. vg1 ,using aseptic technique. completed by wet process technician Blood collected. 18:36 CT Abd/Pelvis - IV Contrast Only In Process Unspecified. EDID 18:46 PHCP role handed off by Damian Stein PA pm1 18:46 John Kat NP is PHCP. pm1 20:19 No provider procedures requiring assistance completed. IV discontinued. ke1 Administered Medications: 17:53 Drug: Zofran (Ondansetron) 4 mg Route: IVP; Site: left antecubital; vg1 19:33 Follow up: Response: Marked relief of symptoms ke1 17:55 Drug: Demerol (meperidine) 25 mg Route: IVP; Site: left antecubital; vg1 19:34 Follow up: Pain 2/10 Adult; Response: Pain is decreased ke1 Medication: 16:45 VIS not applicable for this client. vg1 Outcome: 20:09 Discharge ordered by . pm1 20:19 Discharged to home ambulatory. ke1 20:19 Condition: good 20:19 Discharge instructions given to patient. 20:19 Patient left the ED. ke1 Signatures: Dispatcher [employer] EDID Marie Busby Damian Stein PA PA jr8 John Kat, BAND SCROLL SAW OPERATOR BAND SCROLL SAW OPERATOR pm1 Tricia Arthur RN RN Niki Ramos RN RN 1 Ebrottie, Kouassi, RN RN ke1 Corrections: (The following items were deleted from the chart) 15:30 15:27 PMHx: cholecystectomy; hb hb 17:15 17:08 Inserted saline lock: 20 gauge in right antecubital area, using aseptic vg1 technique. ,using aseptic technique. completed by [employer] wet process technician Blood collected. vg1
--- NOTE | 2022-01-28 20:10 | EDPHYS ---
Physician Documentation [facility] Name: Leonela Kelley Age: 46 yrs Sex: Female : 1975 Arrival Date: 01/28/2022 Time: 15:07 Bed 16 Private MD: ARCHANA Physician Talat Interiano HPI: 01/28 18:34 This 46 yrs old Female presents to ER via Ambulatory with complaints of jr8 Abdominal Pain. 18:34 The patient presents with abdominal pain in the upper abdomen. Onset: The jr8 symptoms/episode began/occurred acutely. The symptoms radiate to right back. Associated signs and symptoms: Pertinent positives: diarrhea, nausea. The symptoms are described as stabbing. Modifying factors: The symptoms are alleviated by nothing, the symptoms are aggravated by movement. Severity of pain: At its worst the pain was moderate in the emergency department the pain is unchanged. The patient has not experienced similar symptoms in the past. The patient has not recently seen a physician. Historical: - Allergies: 15:27 Codeine; hb - Home Meds: 15:27 spironolactone Oral [Active]; atorvastatin oral [Active]; losartan oral [Active]; hb amlodipine oral [Active]; Cymbalta oral [Active]; Insulin: Lantus Sub-Q [Active]; Novolog U-100 Insulin aspart 100 unit/mL Sub-Q soln [Active]; Trulicity subcutaneous [Active]; - PMHx: 15:27 Diabetes mellitus; Hypertensive disorder; hb - PSHx: 15:27 Cholecystectomy; uterine ablation; hysterectomy; hb - Immunization history:: Client reports receiving the 2nd dose of the Covid vaccine. - Social history:: Smoking status: Patient denies any tobacco usage or history of. ROS: 18:34 Eyes: Negative for injury, pain, redness, and discharge, ENT: Negative for injury, jr8 pain, and discharge, Neck: Negative for injury, pain, and swelling, Cardiovascular: Negative for chest pain, palpitations, and edema, Respiratory: Negative for shortness of breath, cough, wheezing, and pleuritic chest pain, Back: Negative for injury and pain, MS/Extremity: Negative for injury and deformity, Skin: Negative for injury, rash, and discoloration, Neuro: Negative for headache, weakness, numbness, tingling, and seizure. 18:34 Abdomen/GI: Positive for abdominal pain, nausea, diarrhea. Exam: 18:34 Constitutional: This is a well developed, well nourished patient who is awake, alert, jr8 and in no acute distress. Cardiovascular: Regular rate and rhythm with a normal S1 and S2. No gallops, murmurs, or rubs. Normal PMI, no JVD. No pulse deficits. Respiratory: Lungs have equal breath sounds bilaterally, clear to auscultation and percussion. No rales, rhonchi or wheezes noted. No increased work of breathing, no retractions or nasal flaring. Back: No spinal tenderness. No costovertebral tenderness. Full range of motion. Skin: Warm, dry with normal turgor. Normal color with no rashes, no lesions, and no evidence of cellulitis. MS/ Extremity: Pulses equal, no cyanosis. Neurovascular intact. Full, normal range of motion. Neuro: Awake and alert, GCS 15, oriented to person, place, time, and situation. Cranial nerves II-XII grossly intact. Motor strength 5/5 in all extremities. Sensory grossly intact. Cerebellar exam normal. Normal gait. 18:34 Abdomen/GI: Inspection: obese Bowel sounds: active, all quadrants, Palpation: soft, in all quadrants, moderate abdominal tenderness, in the right upper quadrant and left upper quadrant, rebound tenderness, is not appreciated, voluntary guarding, is not appreciated, involuntary guarding, is not appreciated, no appreciated organomegaly, Indicators: McBurney's point is not tender, Carrizales's sign is negative, Rovsing's sign is negative, Liver: tenderness, is not appreciated. Vital Signs: 15:24 BP 170 / 109; Pulse 83; Resp 16; Temp 97.2; Pulse Ox 100% on R/A; Weight 73.94 kg; hb Height 5 ft. 4 in. (162.56 cm); Pain 9/10; 16:45 BP 161 / 94; Pulse 84; Resp 16; Pulse Ox 100% on R/A; vg1 18:00 BP 167 / 97; Pulse 69; Resp 16; Pulse Ox 100% on R/A; vg1 19:34 Pain 2/10; ke1 20:05 BP 158 / 104; Pulse 71; Resp 17; Pulse Ox 10% ; Pain 0/10; ke1 15:24 Body Mass Index 27.98 (73.94 kg, 162.56 cm) hb MDM: 16:38 Patient medically screened. 18:50 Data reviewed: vital signs. Data interpreted: Pulse oximetry: on room air is 100 %. pm1 Interpretation: normal. 20:09 Counseling: I had a detailed discussion with the patient and/or guardian regarding: the pm1 historical points, exam findings, and any diagnostic results supporting the discharge/admit diagnosis, lab results, radiology results, the need for outpatient follow up, to return to the emergency department if symptoms worsen or persist or if there are any questions or concerns that arise at home. 01/28 16:38 Order name: CBC with Diff; Complete Time: 17:11 [facility] 01/28 16:38 Order name: CMP; Complete Time: 17:34 [facility] 01/28 16:38 Order name: Lipase; Complete Time: 17:34 [facility] 01/28 16:38 Order name: Urine Microscopic Only; Complete Time: 18:00 [facility] 01/28 17:00 Order name: Urine Dipstick-Ancillary; Complete Time: 17:11 [facility] 01/28 17:34 Order name: CT Abd/Pelvis - IV Contrast Only; Complete Time: 19:02 [facility] 01/28 16:38 Order name: IV Saline Lock; Complete Time: 17:08 [facility] 01/28 16:38 Order name: Labs collected and sent; Complete Time: 17:08 [facility] 01/28 16:38 Order name: Urine Dipstick-Ancillary (obtain specimen); Complete Time: 17:08 [facility] Administered Medications: 17:53 Drug: Zofran (Ondansetron) 4 mg Route: IVP; Site: left antecubital; vg1 19:33 Follow up: Response: Marked relief of symptoms ke1 17:55 Drug: Demerol (meperidine) 25 mg Route: IVP; Site: left antecubital; vg1 19:34 Follow up: Pain 2/10 Adult; Response: Pain is decreased ke1 Disposition Summary: 01/28/22 20:09 Discharge Ordered Location: Home pm1 Problem: new pm1 Symptoms: have improved pm1 Condition: Stable pm1 Diagnosis - Abdominal pain, unspecified pm1 Followup: pm1 - With: Emergency Department - When: As needed - Reason: Worsening of condition Followup: pm1 - With: Private Physician - When: 2 - 3 days - Reason: Recheck today's complaints, Continuance of care, Re-evaluation by your physician Discharge Instructions: - Discharge Summary Sheet pm1 - Abdominal Pain, Adult pm1 Forms: - Medication Reconciliation Form pm1 - Thank You Letter pm1 - Antibiotic Education pm1 - Prescription Opioid Use pm1 Prescriptions: - dicyclomine 20 mg Oral Tablet - take 1 tablet by ORAL route every 6 hours As needed; 20 tablet; Refills: 0, pm1 Product Selection Permitted - ondansetron 4 mg Oral tablet,disintegrating - take 1 tablet by ORAL route every 8 hours As needed; 12 tablet; Refills: 0, pm1 Product Selection Permitted - Pepcid 20 mg Oral Tablet - take 1 tablet by ORAL route every 12 hours for 10 days; 20 tablet; Refills: 0, pm1 Product Selection Permitted Signatures: Dispatcher [employer] EDMS Damian Stein PA PA jr8 John Kat, DENAE FLOW FLOOR ATTENDANT pm1 Tricia Arthur RN RN Niki Diaz RN RN 1 Brian Frazier RN ke1 Corrections: (The following items were deleted from the chart) 15:30 15:27 PMHx: cholecystectomy; hb hb
[2022-01-28 20:28] VITALS: TEMP 97.2
[2022-01-28 20:40] VITALS: BP 158/104; O2SAT 10
== END 2022-01-28 20:19 | disposition home or self-care (01) ==
LOC: ER 15:04
DX: R10.10 Upper abdominal pain, unspecified (principal); E11.9 Type 2 diabetes mellitus without complications; Z79.4 Long term (current) use of insulin; I10 Essential (primary) hypertension; Z88.5 Allergy status to narcotic agent
CPT/HCPCS: 36415; 74177; 80053; 81003; 81015; 83690; 85025; 96374; 96375; 99284; J2175; J2405; Q9967